=== PATIENT | female | born 1960 | race Caucasian/White ===

== ENCOUNTER 2016-05-04 15:02 | Inpatient (IN) | payer MEDICARE, OTHER ==
[2016-05-04] MEDS ORDERED: SODIUM CHLORIDE 0.9% 1,000 ML IV STA (15:09)
--- NOTE | 2016-05-04 15:25 | ED ---
Female Urogenital HPI - General Stated complaint: ABNORMAL LABS, VAGINAL BLEEDIING Time Seen by Provider: 05/04/16 15:08 Source: patient, EMS Mode of arrival: EMS Limitations: no limitations - History of Present Illness Initial comments: 55-year-old female presents emergency Department from [facility] for anemia. Patient hemoglobin was drawn today showed hemoglobin of 6. Patient had lab work approximately 2 weeks ago showed hemoglobin 10.3. Patient had vaginal bleeding for the last 9 days. Patient states she cannot quantify how much bleeding she states her is clots. Patient did admit to having some sort of uterine/ovarian cancer treated with radiation. Patient states she's not had any surgeries. Patient states that she otherwise feels fine. Denies any fatigue, shortness breath, chest pain, headache, dizziness, fever or chills. - Related Data Home Medications Medication Instructions Recorded Confirmed Acetaminophen Tab [Tylenol Tab] 650 mg PO Q4H PRN 05/04/16 05/04/16 Artificial Tears-Hypromellose 1 drops BOTH EYES QID 05/04/16 05/04/16 [Artificial Tear Drops] Aspirin EC [Ecotrin] 325 mg PO DAILY@1700 05/04/16 05/04/16 Bisacodyl [Dulcolax] 10 mg RECTAL DAILY PRN 05/04/16 05/04/16 Brimonidine Tartrate/Timolol 1 drop LEFT EYE BID 05/04/16 05/04/16 [Combigan 0.2%-0.5% Eye Drops] Cholecalciferol [Vitamin D3] 1,000 unit PO DAILY@1700 05/04/16 05/04/16 DULoxetine HCL [Cymbalta] 60 mg PO DAILY 05/04/16 05/04/16 Famotidine [Pepcid] 20 mg PO QAM 05/04/16 05/04/16 Gemfibrozil [Lopid] 600 mg PO AC-BID 05/04/16 05/04/16 HYDROcodone/APAP 5-325MG [[place] 1 tab PO HS 05/04/16 05/04/16 5-325] Lacri-Lube Oint 1 applic RIGHT EYE DAILY 05/04/16 05/04/16 Levothyroxine Sodium [Synthroid] 50 mcg PO HS 05/04/16 05/04/16 Loperamide HCl [Imodium A-D] 4 mg PO BID PRN 05/04/16 05/04/16 Magnesium Hydroxide [Milk of 2,400 mg PO DAILY PRN 05/04/16 05/04/16 Magnesia] Multivitamins, Thera [Multivitamin] 1 tab PO DAILY@169905/04/16 05/04/16 Na Phos,M-B/Na Phos,Di-Ba [Fleet 133 ml RECTAL DAILY PRN 05/04/16 05/04/16 Adult] Nystatin 100,000 Unit/gm Powd 1 applic TOPICAL DAILY PRN 05/04/16 05/04/16 [Mycostatin Powder] Potassium Chloride [K-Tab ER] 10 meq PO DAILY@169905/04/16 05/04/16 Ranitidine HCl [Zantac] 150 mg PO QAM 05/04/16 05/04/16 Topiramate [Topamax] 25 mg PO DAILY 05/04/16 05/04/16 Topiramate [Topamax] 100 mg PO DAILY@169905/04/16 05/04/16 Allergies Allergy/AdvReac Type Severity Reaction Status Date / Time kiwi Allergy Unknown Verified 05/04/16 15:07 pineapple Allergy Unknown Verified 05/04/16 15:07 Review of Systems ROS Statement: Those systems with pertinent positive or pertinent negative responses have been documented in the HPI. ROS Other: All systems not noted in ROS Statement are negative. Past Medical History Past Medical History: Cancer, GERD/Reflux, Hyperlipidemia, Hypertension, Thyroid Disorder Additional Past Medical History / Comment(s): malignant neoplasm of uterus, atherosclerotic heart disease, angina, ovarian Cancer History of Any Multi-Drug Resistant Organisms: None Reported Past Surgical History: Unable to Obtain Past Psychological History: Anxiety, Bipolar, Depression Smoking Status: Never smoker Past Alcohol Use History: None Reported Past Drug Use History: None Reported General Exam Limitations: no limitations General appearance: alert, in no apparent distress Head exam: Present: atraumatic, normocephalic, normal inspection Eye exam: Present: normal appearance, PERRL, EOMI. Absent: scleral icterus, conjunctival injection, periorbital swelling Respiratory exam: Present: normal lung sounds bilaterally. Absent: respiratory distress, wheezes, rales, rhonchi, stridor Cardiovascular Exam: Present: regular rate, normal rhythm, normal heart sounds. Absent: systolic murmur, diastolic murmur, rubs, gallop, clicks GI/Abdominal exam: Present: soft, normal bowel sounds. Absent: distended, tenderness, guarding, rebound, rigid Skin exam: Present: warm, dry, intact. Absent: normal color (pale), rash Course Vital Signs 05/04/16 05/04/16 05/04/16 15:04 16:34 17:42 Temperature 98.1 F 98.4 F Pulse Rate 49 L 68 68 Respiratory 18 18 20 Rate Blood Pressure 128/67 121/64 121/66 O2 Sat by Pulse 100 100 100 Oximetry - Reevaluation(s) Reevaluation #1: 05/04/16 16:54 Patient was scheduled for ultrasound here though she is refusing ultrasound as she states that she does not think she can go through with that. She is asking to be sedated. I did explain that we need to perform this rel any concerning signs or symptoms or increased mass in that she has a history of uterine/ ovarian cancer. Patient continues to refuse. Headaches been having need to at least and exam to make sure it's vaginal bleeding and not rectal. Patient also refusing this. She states she knows that it is vaginal bleeding as she is changing her brief approximately 3 times a day Medical Decision Making - Lab Data Result diagrams: 05/04/16 15:16 05/04/16 15:16 Lab Results 05/04/16 05/04/16 05/04/16 Range/Units 15:16 15:16 15:16 WBC 3.8 (3.8-10.6) k/uL RBC 2.07 L (3.80-5.40) m/uL Hgb 6.7 L* (11.4-16.0) gm/dL Hct 20.2 L (34.0-46.0) % MCV 97.5 (80.0-100.0) fL MCH 32.5 (25.0-35.0) pg MCHC 33.3 (31.0-37.0) g/dL RDW 18.3 H (11.5-15.5) % Plt Count 283 (150-450) k/uL Neutrophils % (Manual) 69.5 % Band Neutrophils % 2.0 % Lymphocytes % (Manual) 17.0 % Monocytes % (Manual) 6.5 % Eosinophils % (Manual) 3.5 % Metamyelocytes % 0.5 % Myelocytes % 1.0 % Neutrophils # (Manual) 2.7 (1.3-7.7) k/uL Lymphocytes # (Manual) 0.6 L (1.0-4.8) k/uL Monocytes # (Manual) 0.2 (0-1.0) k/uL Eosinophils # (Manual) 0.1 (0-0.7) k/uL Nucleated RBCs 6 H (0-0) /100 WBC Manual Slide Review Performed Polychromasia Present Hypochromasia Slight Poikilocytosis Moderate Anisocytosis Slight Macrocytosis Slight PT 10.9 (9.0-12.0) sec INR 1.1 (<1.1) APTT 25.1 (22.0-30.0) sec Sodium 138 (137-145) mmol/L Potassium 3.6 (3.5-5.1) mmol/L Chloride 103 (98-107) mmol/L Carbon Dioxide 21 L (22-30) mmol/L Anion Gap 14 mmol/L BUN 14 (7-17) mg/dL Creatinine 1.27 H (0.52-1.04) mg/dL Est GFR (MDRD) Af Amer 53 (>60 ml/min/1.73 sqM) Est GFR (MDRD) Non-Af 43 (>60 ml/min/1.73 sqM) Glucose 129 H (74-99) mg/dL Calcium 9.1 (8.4-10.2) mg/dL Total Bilirubin 0.6 (0.2-1.3) mg/dL AST 38 H (14-36) U/L ALT 32 (9-52) U/L Alkaline Phosphatase 139 H (38-126) U/L Total Protein 6.3 (6.3-8.2) g/dL Albumin 3.5 (3.5-5.0) g/dL Amylase <30 L (30-110) U/L Lipase 44 (23-300) U/L Blood Type Blood Type Confirm Blood Type Recheck Antibody Screen Crossmatch Spec Expiration Date 05/04/16 05/04/16 Range/Units 15:16 16:36 WBC (3.8-10.6) k/uL RBC (3.80-5.40) m/uL Hgb (11.4-16.0) gm/dL Hct (34.0-46.0) % MCV (80.0-100.0) fL MCH (25.0-35.0) pg MCHC (31.0-37.0) g/dL RDW (11.5-15.5) % Plt Count (150-450) k/uL Neutrophils % (Manual) % Band Neutrophils % % Lymphocytes % (Manual) % Monocytes % (Manual) % Eosinophils % (Manual) % Metamyelocytes % % Myelocytes % % Neutrophils # (Manual) (1.3-7.7) k/uL Lymphocytes # (Manual) (1.0-4.8) k/uL Monocytes # (Manual) (0-1.0) k/uL Eosinophils # (Manual) (0-0.7) k/uL Nucleated RBCs (0-0) /100 WBC Manual Slide Review Polychromasia Hypochromasia Poikilocytosis Anisocytosis Macrocytosis PT (9.0-12.0) sec INR (<1.1) APTT (22.0-30.0) sec Sodium (137-145) mmol/L Potassium (3.5-5.1) mmol/L Chloride (98-107) mmol/L Carbon Dioxide (22-30) mmol/L Anion Gap mmol/L BUN (7-17) mg/dL Creatinine (0.52-1.04) mg/dL Est GFR (MDRD) Af Amer (>60 ml/min/1.73 sqM) Est GFR (MDRD) Non-Af (>60 ml/min/1.73 sqM) Glucose (74-99) mg/dL Calcium (8.4-10.2) mg/dL Total Bilirubin (0.2-1.3) mg/dL AST (14-36) U/L ALT (9-52) U/L Alkaline Phosphatase (38-126) U/L Total Protein (6.3-8.2) g/dL Albumin (3.5-5.0) g/dL Amylase (30-110) U/L Lipase (23-300) U/L Blood Type A Positive Blood Type Confirm A Positive Blood Type Recheck CABO Indicated Antibody Screen NEGATIVE Crossmatch See Detail Spec Expiration Date 05/07/2016 - 2316 Disposition Clinical Impression: Anemia, Vaginal bleeding Disposition: ADMITTED IP TO THIS HOSP Condition: Stable Referrals: Ludwig García DO [Primary Care Provider] - 1-2 days
[2016-05-04 15:37] LABS: Anisocytosis Slight; CH 33.2; CHCM 34.5; HCT 20.2 % (34.0-46.0); HDW 4.34; Hypochromasia Slight; MCH 32.5 pg (25.0-35.0); MCHC 33.3 g/dL (31.0-37.0); MCV 97.5 fL (80.0-100.0); Macrocytosis Slight; Mean Platelet Volume 7.6; Poikilocytosis Moderate; RBC 2.07 m/uL (3.80-5.40); RDW 18.3 % (11.5-15.5); WBC (Perox) 4.39
[2016-05-04 15:41] LABS: INR 1.1 (<1.1); Partial Thromboplastin Time 25.1 sec (22.0-30.0); Prothrombin Time 10.9 sec (9.0-12.0)
[2016-05-04 15:43] LABS: ALT 32 U/L (9-52); AST 38 U/L (14-36); Alkaline Phosphatase 139 U/L (38-126); Amylase <30 U/L (30-110); Anion Gap 14 mmol/L; Blood Urea Nitrogen 14 mg/dL (7-17); Calcium 9.1 mg/dL (8.4-10.2); Carbon Dioxide 21 mmol/L (22-30); Chloride 103 mmol/L (98-107); Glucose 129 mg/dL (74-99); HGB 6.7 gm/dL (11.4-16.0); Non-African American GFR(MDRD) 43 (>60 ml/min/1.73 sqM); Potassium 3.6 mmol/L (3.5-5.1); Sodium 138 mmol/L (137-145); Total Bilirubin 0.6 mg/dL (0.2-1.3); Total Protein 6.3 g/dL (6.3-8.2)
[2016-05-04 16:10] LABS: Add Differential Manual Differential
[2016-05-04 16:15] LABS: Metamyelocytes % 0.5 %; Nucleated Red Blood Cells 6 /100 WBC (0-0); Total Cells Counted 200; WBC 3.8 k/uL (3.8-10.6)
[2016-05-04 16:16] LABS: Manual Review Performed; Polychromasia Present
[2016-05-04] MEDS ORDERED: ACETAMINOPHEN TAB 325 MG TAB PO PRN (18:03)
[2016-05-04] MEDS ORDERED: NALOXONE 0.4 MG/ML 1 ML VIAL IV PRN (18:03)
[2016-05-04] MEDS ORDERED: ONDANSETRON 4 MG/2 ML VIAL IVP PRN (18:03)
--- NOTE | 2016-05-04 19:42 | US ---
EXAMINATION TYPE: US pelvis complete transvag DATE OF EXAM: 05/04/2016 7:36 PM COMPARISON: NONE CLINICAL HISTORY: Pain. Heavy post menopausal bleeding, passing clots. Patient states a history of ov raymundo CA. Denies any surgical history TECHNIQUE: Transvaginal (TV) and Transabdominal (TA) Date of LMP: Patient could not give me a time frame EXAM MEASUREMENTS: Uterus: 6.5 x 3.6 x 5.2 cm cm Endometrial Stripe: 0.4 cm Right Ovary: Not visualized with certainty Left Ovary: Not visualized on this exam TECHNOLOGIST IMPRESSION: 1. Uterus: Difficult/limited visualization (patient unable to lift hips for better visualization), v isualized portions wnl 2. Endometrium: wnl 3. Right Ovary: Not visualized with certainty. Within the right adnexa there is a large complex area measuring 8.5 x 4.1 x 9.3 cm. There is blood flow within this area 4. Left Ovary: Not visualized on this exam 5. Bilateral Adnexa: See above, left adnexa wnl 6. Posterior cul-de-sac: wnl IMPRESSION: There is a bilobed large cystic mass in the pelvis on the right side that could relate t o the right ovary. This measures overall 5 9 x 4.5 cm. Follow-up is recommended. The possibility of a cystic ovarian tumor cannot be excluded.
--- NOTE | 2016-05-04 22:44 | P.OBCN ---
History of Present Illness Consult date: 05/04/16 Requesting physician: Velma Whitt Reason for consult: pelvic mass, other (post menopausal bleeding with history of uterine and ovarian cancer) Chief complaint: Patient has what is suspected to be vaginal bleeding and history of uterine History of present illness: Ninfa is a very pleasant 55-year-old female who noted last Monday she began having what she believed to be vaginal bleeding. She began passing large clots and has continued to bleed over the past 7 days. She got to the point where she was bleeding so badly she became anemic and she is admitted for same. I was consult it for the vaginal bleeding. She believes she is a patient Dr. Serrano and the Dr. Serrano diagnosed her with both uterine and ovarian cancer several years ago and she saw physicians at [facility] in [place] for radiation for same. At this time it did not have records but we'll make every effort to obtain those records in the next 24 hours. She reports that she is still bleeding some but the nurses have reported that is significantly less than it was earlier in the day. She is a 1 para 1 who also underwent a tubal ligation. She is unsure how her tubal was done. She also is physically morbidly obese with large pannus. She reports that when she was first diagnosed with cancer she believes she weighed about 400 pounds and that precluded her from initially having CT scans and follow-up care and may be why if she had cancer they opted for radiation therapy rather than traditional surgical approaches. On receiving consultation I did order a straight cath UA as would be very unusual for her to have vaginal bleeding. She did have gross hematuria. When I was in the room doing my physical exam, I did note one clot at the outer part of the vagina. I did do a speculum exam No Masses and There Was No Blood in the Vagina. No Active Bleeding from the Vagina at This Time. Pelvic Exam Done Bimanually Also Revealed No Masses Palpable in the Vagina However This Exam Is Somewhat Limited Due To Her Size. Review of the Ultrasound Did Show a suspected 8 cm ovarian mass on the right side. Her uterus however was small and the uterine lining was measured to 4 mm which would be normal. Certainly the ovarian mass dates to be evaluated with a CA-125 and likely repeat referral to [facility] oncology. At this time it is possible as she has lost a significant amount of weight that she may be a better candidate for surgery. However, she needs to be evaluated by urology for gross hematuria. Difficult to say if this could be some type of cancer of this extended to the bladder due to her history or radiation damage it is now apparent that she had radiation with the last 3-5 years. She is a decent historian but does not remember clearly when the care for her cancer started or when it was diagnosed. Assessment gross hematuria Plan CA-125 for ovarian mass and urologic consult. Should be noted at this time her bleeding seems to be less than what was described earlier Past Medical History Past Medical History: Cancer, GERD/Reflux, Hyperlipidemia, Hypertension, Thyroid Disorder Additional Past Medical History / Comment(s): malignant neoplasm of uterus, atherosclerotic heart disease, angina, ovarian Cancer stated no sx but did have radiation, HIATAL HERNIA,UTI, STRESS TEST 204 WNL, RT EYE GLAUCOMA History of Any Multi-Drug Resistant Organisms: None Reported Past Surgical History: Tubal Ligation Additional Past Surgical History / Comment(s): ? tonsils-pt not sure Past Anesthesia/Blood Transfusion Reactions: No Reported Reaction Additional Past Anesthesia/Blood Transfusion Reaction / Comm: never had any blood trasnfusion before Past Psychological History: Anxiety, Bipolar, Depression Additional Psychological History / Comment(s): pt currently resides at [facility], uses a walker to get out of bed and to her w/c. Smoking Status: Never smoker Past Alcohol Use History: None Reported Past Drug Use History: None Reported - Past Family History Father Family Medical History: Unable to Obtain Mother Family Medical History: Unable to Obtain Medications and Allergies Home Medications Medication Instructions Recorded Confirmed Type Acetaminophen Tab [Tylenol Tab] 650 mg PO Q4H PRN 05/04/16 05/04/16 History Artificial Tears-Hypromellose 1 drops BOTH EYES QID 05/04/16 05/04/16 History [Artificial Tear Drops] Aspirin EC [Ecotrin] 325 mg PO DAILY@1700 05/04/16 05/04/16 History Bisacodyl [Dulcolax] 10 mg RECTAL DAILY PRN 05/04/16 05/04/16 History Brimonidine Tartrate/Timolol 1 drop LEFT EYE BID 05/04/16 05/04/16 History [Combigan 0.2%-0.5% Eye Drops] Cholecalciferol [Vitamin D3] 1,000 unit PO DAILY@1700 05/04/16 05/04/16 History DULoxetine HCL [Cymbalta] 60 mg PO DAILY 05/04/16 05/04/16 History Famotidine [Pepcid] 20 mg PO QAM 05/04/16 05/04/16 History Gemfibrozil [Lopid] 600 mg PO AC-BID 05/04/16 05/04/16 History HYDROcodone/APAP 5-325MG [[place] 1 tab PO HS 05/04/16 05/04/16 History 5-325] Lacri-Lube Oint 1 applic RIGHT EYE DAILY 05/04/16 05/04/16 History Levothyroxine Sodium [Synthroid] 50 mcg PO HS 05/04/16 05/04/16 History Loperamide HCl [Imodium A-D] 4 mg PO BID PRN 05/04/16 05/04/16 History Magnesium Hydroxide [Milk of 2,400 mg PO DAILY PRN 05/04/16 05/04/16 History Magnesia] Multivitamins, Thera [Multivitamin] 1 tab PO DAILY@0 05/04/16 05/04/16 History Na Phos,M-B/Na Phos,Di-Ba [Fleet 133 ml RECTAL DAILY PRN 05/04/16 05/04/16 History Adult] Nystatin 100,000 Unit/gm Powd 1 applic TOPICAL DAILY PRN 05/04/16 05/04/16 History [Mycostatin Powder] Potassium Chloride [K-Tab ER] 10 meq PO DAILY@0 05/04/16 05/04/16 History Ranitidine HCl [Zantac] 150 mg PO QAM 05/04/16 05/04/16 History Topiramate [Topamax] 25 mg PO DAILY 05/04/16 05/04/16 History Topiramate [Topamax] 100 mg PO DAILY@1700 05/04/16 05/04/16 History Allergies Allergy/AdvReac Type Severity Reaction Status Date / Time kiwi Allergy Unknown Verified 05/04/16 15:07 pineapple Allergy Unknown Verified 05/04/16 15:07 Exam Osteopathic Statement: *. No significant issues noted on an osteopathic structural exam other than those noted in the History and Physical/Consult. - Vital Signs Vital signs: Vital Signs Temp Pulse Resp BP Pulse Ox 05/04/16 20:35 98.1 F 68 18 111/69 100 05/04/16 20:31 97.8 F 90 20 139/63 100 05/04/16 20:15 97.8 F 68 18 137/71 100 05/04/16 19:26 97.1 F L 72 18 130/67 100 05/04/16 19:03 96.9 F L 76 20 149/65 100 05/04/16 18:33 97.6 F 69 20 142/63 100 05/04/16 18:23 97.6 F 75 20 143/87 99 05/04/16 18:15 97.7 F 67 20 126/63 100 Intake and Output 05/04/16 05/04/16 05/04/16 06:59 14:59 22:59 Intake Total 310 Balance 310 Intake: Blood Product 310 Rc As-1 Unit 0 [id number] Rc As-1 Unit 310 [id number] Results Result Diagrams: 05/04/16 15:16 05/04/16 15:16
[2016-05-04 23:35] VITALS: BMI 46.0
[2016-05-05 01:14] LABS: Appearance,Urine Turbid (Clear); Bacteria,Urine Few /hpf; Bilirubin,Urine Negative (Negative); Glucose,Urine (UA) Negative (Negative); Ketones,Urine Negative (Negative); Leukocyte Esterase,Urine Small (Negative); Nitrite,Urine Negative (Negative); Particle Count 22667; Protein,Urine 2+ (Negative); RBC,Urine >182 /hpf (0-5); Specific Gravity,Urine 1.017 (1.001-1.035); UA Billing (MACRO vs. MICRO) MICRO; Urobilinogen,Urine <2.0 mg/dL (<2.0); WBC,Urine 44 /hpf (0-5)
[2016-05-05 01:24] LABS: Anisocytosis Slight; CHCM 33.3; HDW 3.81; Hypochromasia Slight; MCH 31.1 pg (25.0-35.0); MCHC 32.1 g/dL (31.0-37.0); MCV 96.9 fL (80.0-100.0); Macrocytosis Slight; Mean Platelet Volume 7.4; Poikilocytosis Slight; RBC 2.58 m/uL (3.80-5.40); RDW 17.8 % (11.5-15.5)
[2016-05-05 06:35] LABS: Anisocytosis Slight; Basophils % (A) 1 %; CH 31.6; CHCM 33.1; Eosinophils # (A) 0.1 k/uL (0-0.7); Eosinophils % (A) 2 %; HCT 24.6 % (34.0-46.0); HDW 3.89; HGB 8.1 gm/dL (11.4-16.0); Hypochromasia Slight; Luc % (Auto) 3; Lymphocytes # (A) 0.8 k/uL (1.0-4.8); Lymphocytes % (A) 24 %; MCH 31.8 pg (25.0-35.0); MCHC 32.9 g/dL (31.0-37.0); MCV 96.8 fL (80.0-100.0); Macrocytosis Slight; Mean Platelet Volume 6.6; Monocytes # (A) 0.2 k/uL (0-1.0); Monocytes % (A) 6 %; Neutrophils # (A) 2.2 k/uL (1.3-7.7); Neutrophils % (A) 64 %; Poikilocytosis Slight; RBC 2.55 m/uL (3.80-5.40); RDW 18.5 % (11.5-15.5); WBC 3.4 k/uL (3.8-10.6)
[2016-05-05 08:15] LABS: Manual Review Performed; Polychromasia Present
[2016-05-05] MEDS ORDERED: FAMOTIDINE 20 MG TAB PO SCH (09:00)
[2016-05-05] MEDS: GEMFIBROZIL 600 MG TAB PO SCH ×2 (09:27→16:52)
[2016-05-05] MEDS: DULoxetine HCL 60 MG CAPSULE.DR PO SCH (09:28)
[2016-05-05] MEDS: TOPIRAMATE 25 MG TAB PO SCH (09:28)
[2016-05-05] MEDS: FAMOTIDINE 20 MG TAB PO SCH (09:28)
[2016-05-05] MEDS ORDERED: MAGNESIUM HYDROXIDE 2,400 MG/10 ML CUP PO PRN (12:25)
[2016-05-05] MEDS ORDERED: ACETAMINOPHEN TAB 325 MG TAB PO PRN (12:25)
[2016-05-05] MEDS ORDERED: BISACODYL 10 MG SUPP RECTAL PRN (12:25)
[2016-05-05] MEDS ORDERED: NYSTATIN 100,000 UNIT/GM POWD 15 GM TOPICAL PRN (12:25)
[2016-05-05] MEDS: ARTIFICIAL TEARS-HYPROMELLOSE DROPS 15 ML BTL BOTH EYES SCH ×3 (14:44→20:20)
--- NOTE | 2016-05-05 15:46 | HP ---
DATE OF ADMISSION: Patient is a 55-year-old female, pleasant female who came in with possible vaginal. Patient had a urinary catheterization, which apparently showed hematuria, because of which Urology was consulted by TILER. TILER consulted patient apparently. In the past was diagnosed with uterine and ovarian cancer. Patient followed up at [facility] in [place] for radiation and patient at this point of time denied anymore bleed today. Patient denied any lightheadedness. Patient denied any fever or chills. Patient's hemoglobin was 6.7 and received 2 units of blood transfusion and patient is on IV fluids at 100 mL/h. Patient has mild renal dysfunction, most probably CKD stage II to III. Patient was evaluated by TILER and patient also has an incidental finding of ovarian cyst on the pelvic ultrasound. Please refer to Dr. López's note for further details. Patient endothelium apparently is normal thickness and CA125 was ordered, which is essentially within normal limits although that does not exclude endometrial cancer. REVIEW OF SYSTEMS: GENERAL: As described in HPI. CONSTITUTIONAL: No fever, no malaise, no fatigue. HEENT: No recent visual problems or hearing problems. Denied any sore throat. CARDIOVASCULAR: No chest pain, orthopnea, PND, no palpitations, no syncope. PULMONARY: No shortness of breath, no cough, no hemoptysis. GASTROINTESTINAL: No diarrhea, no nausea, no vomiting, no abdominal pain. Normoactive bowel sounds. NEUROLOGICAL: No headaches, no weakness, no numbness. HEMATOLOGICAL: Denies any bleeding or petechiae. GENITOURINARY: As described in HPI. Patient has been bleeding; vaginal versus genitourinary bleeding for 10 days. MUSCULOSKELETAL/RHEUMATOLOGICAL: Denies any joint pain, swelling, or any muscle pain. ENDOCRINE: Denies any polyuria or polydipsia. The rest of the 14 point review of systems is negative. PAST MEDICAL HISTORY: Significant for gastroesophageal reflux disease, uterine cancer, hyperlipidemia, hypertension, hypothyroidism, ovarian cancer in the past. Tubal ligation surgery in the past. Bipolar disorder, depression. Patient received radiation therapy in the past. SOCIAL HISTORY: Denies smoking, alcohol abuse or drug abuse. FAMILY HISTORY: Denied any family history of hypertension or diabetes mellitus. Home medications include acetaminophen, Artificial Tears, aspirin, bisacodyl, brimonidine, duloxetine, famotidine, gemfibrozil, lactulose, levothyroxine, loperamide, magnesium oxide, multivitamins, nystatin topical, Topamax, ranitidine, potassium chloride. ALLERGIES: Please refer to the chart. PHYSICAL EXAMINATION: VITAL SIGNS: Temperature 97.5, pulse of 75, respiratory rate of 16, blood pressure is 124/72, saturating at 100% on room air. GENERAL: Patient appears to be pale and alert and oriented x3. HEENT: Eye examination: Patient has conjunctival pallor. Pupils are round and equally reacting to light. No scleral icterus was appreciated. Normocephalic, atraumatic. No pharyngeal erythema. No thyromegaly. CARDIOVASCULAR: S1 and S2 present. No murmurs, rubs, or gallops. PULMONARY: Chest is clear to auscultation, no wheezing or crackles. ABDOMEN: Soft, nontender, nondistended, normoactive bowel sounds. No palpable organomegaly. MUSCULOSKELETAL: No joint swelling or deformity. EXTREMITIES: No cyanosis, clubbing, or pedal edema. NEUROLOGICAL: Gross neurological examination did not reveal any focal deficits. SKIN: No rashes. LABORATORY DATA: Hemoglobin as mentioned above. Patient has increased RDW consistent with acute bleed. Patient's MCV is within normal limits. Bicarbonate is 21, creatinine is 1.27. I do not have any of her previous creatinines available. UA is positive for large blood, small leukocyte esterase, RBC greater than 182, WBC 44, although patient denied any fever, chills, or suprapubic pain or dysuria. Patient does have hematuria. ASSESSMENT AND PLAN: 1. Vaginal bleed. There is probability of bleeding from the urinary system because of which Urology was consulted. The patient was evaluated by Dr. López. Please refer to his chart for further details. CA125 is essentially within normal limits. Patient received 1 unit of transfusion. After evaluation by Urology patient probably can be discharged tomorrow depending on their recommendations and depending continuation of bleed. 2. Symptomatic bacteria, which does not warrant any antibiotics at this point of time. 3. Possibility of hematuria. Evaluation by Urology as mentioned above. 4. Acute renal failure. Previous creatinine is 0.86. Patient is probably due to intravascular volume depletion from genitourinary bleed. Patient will continue with IV fluids and will transfuse her one more unit if needed depending if she has one more bleeding. Watch for further bleeding. 5. History of endometrial cancer in remission. 6. Hyperlipidemia. 7. Hypertension. 8. Hypothyroidism. For above-mentioned chronic medical problems, I will go ahead and continue her home medications. Patient's primary care physician is Dr. Ludwig García.
[2016-05-05] MEDS: TOPIRAMATE 100 MG TAB PO SCH (16:52)
[2016-05-05] MEDS: POTASSIUM CHLORIDE ER 10 MEQ TAB.ER.PRT PO SCH (16:52)
[2016-05-05] MEDS: HYDROcodone/APAP 5-325MG 1 EACH TAB PO SCH ×2 (20:19)
[2016-05-05] MEDS: LEVOTHYROXINE 50 MCG TAB PO SCH (20:20)
[2016-05-05] MEDS ORDERED: BRIMONIDINE TARTRATE LEFT EYE SCH (21:00)
[2016-05-05] MEDS ORDERED: TIMOLOL LEFT EYE SCH (21:00)
--- NOTE | 2016-05-05 21:06 | P.GSCN ---
History of Present Illness Consult date: 05/05/16 Reason for Consult: Hematuria Requesting physician: Kash López History of present illness: The patient is a 55-year-old white female who received radiation therapy for ovarian cancer several years ago. She now presents with a one-week history of vaginal bleeding. She is a vague historian, but states that she has experienced vaginal bleeding with clots. She also reports gross hematuria. She denies dysuria. She denies urinary incontinence. She denies any prior history of UTIs or urolithiasis. Review of Systems - Genitourinary Genitourinary: Reports as per HPI, Denies dysuria Past Medical History Past Medical History: Cancer, GERD/Reflux, Hyperlipidemia, Hypertension, Thyroid Disorder Additional Past Medical History / Comment(s): malignant neoplasm of uterus, atherosclerotic heart disease, angina, ovarian Cancer stated no sx but did have radiation, HIATAL HERNIA,UTI, STRESS TEST 204 WNL, RT EYE GLAUCOMA History of Any Multi-Drug Resistant Organisms: None Reported Past Surgical History: Tubal Ligation Additional Past Surgical History / Comment(s): ? tonsils-pt not sure Past Anesthesia/Blood Transfusion Reactions: No Reported Reaction Additional Past Anesthesia/Blood Transfusion Reaction / Comm: never had any blood trasnfusion before Past Psychological History: Anxiety, Bipolar, Depression Additional Psychological History / Comment(s): pt currently resides at [facility], uses a walker to get out of bed and to her w/c. Smoking Status: Never smoker Past Alcohol Use History: None Reported Past Drug Use History: None Reported - Past Family History Father Family Medical History: Unable to Obtain Mother Family Medical History: Unable to Obtain Medications and Allergies Home Medications Medication Instructions Recorded Confirmed Type Acetaminophen Tab [Tylenol Tab] 650 mg PO Q4H PRN 05/04/16 05/04/16 History Artificial Tears-Hypromellose 1 drops BOTH EYES QID 05/04/16 05/04/16 History [Artificial Tear Drops] Aspirin EC [Ecotrin] 325 mg PO DAILY@1700 05/04/16 05/04/16 History Bisacodyl [Dulcolax] 10 mg RECTAL DAILY PRN 05/04/16 05/04/16 History Brimonidine Tartrate/Timolol 1 drop LEFT EYE BID 05/04/16 05/04/16 History [Combigan 0.2%-0.5% Eye Drops] Cholecalciferol [Vitamin D3] 1,000 unit PO DAILY@1700 05/04/16 05/04/16 History DULoxetine HCL [Cymbalta] 60 mg PO DAILY 05/04/16 05/04/16 History Famotidine [Pepcid] 20 mg PO QAM 05/04/16 05/04/16 History Gemfibrozil [Lopid] 600 mg PO AC-BID 05/04/16 05/04/16 History HYDROcodone/APAP 5-325MG [Imbler 1 tab PO HS 05/04/16 05/04/16 History 5-325] Lacri-Lube Oint 1 applic RIGHT EYE DAILY 05/04/16 05/04/16 History Levothyroxine Sodium [Synthroid] 50 mcg PO HS 05/04/16 05/04/16 History Loperamide HCl [Imodium A-D] 4 mg PO BID PRN 05/04/16 05/04/16 History Magnesium Hydroxide [Milk of 2,400 mg PO DAILY PRN 05/04/16 05/04/16 History Magnesia] Multivitamins, Thera [Multivitamin] 1 tab PO DAILY@1700 05/04/16 05/04/16 History Na Phos,M-B/Na Phos,Di-Ba [Fleet 133 ml RECTAL DAILY PRN 05/04/16 05/04/16 History Adult] Nystatin 100,000 Unit/gm Powd 1 applic TOPICAL DAILY PRN 05/04/16 05/04/16 History [Mycostatin Powder] Potassium Chloride [K-Tab ER] 10 meq PO DAILY@1700 05/04/16 05/04/16 History Ranitidine HCl [Zantac] 150 mg PO QAM 05/04/16 05/04/16 History Topiramate [Topamax] 25 mg PO DAILY 05/04/16 05/04/16 History Topiramate [Topamax] 100 mg PO DAILY@1700 05/04/16 05/04/16 History Allergies Allergy/AdvReac Type Severity Reaction Status Date / Time kiwi Allergy Unknown Verified 05/04/16 15:07 pineapple Allergy Unknown Verified 05/04/16 15:07 Surgical - Exam Vital Signs Temp Pulse Resp BP Pulse Ox 98.1 F 49 L 18 128/67 100 05/04/16 15:04 05/04/16 15:04 05/04/16 15:04 05/04/16 15:04 05/04/16 15:04 - General well developed, well nourished, no distress, obese - Respiratory normal respiratory effort - Abdomen Abdomen: soft, non tender, no guarding, no rigid, no rebound Results - Labs 05/05/16 06:02 05/04/16 15:16 Abnormal Lab Results - Last 24 Hours (Table) 05/04/16 05/05/16 05/05/16 Range/Units 22:25 01:14 06:02 WBC 3.4 L (3.8-10.6) k/uL RBC 2.58 L 2.55 L (3.80-5.40) m/uL Hgb 8.0 L 8.1 L (11.4-16.0) gm/dL Hct 25.0 L 24.6 L (34.0-46.0) % RDW 17.8 H 18.5 H (11.5-15.5) % Lymphocytes # 0.8 L (1.0-4.8) k/uL Urine Appearance Turbid H (Clear) Urine Protein 2+ H (Negative) Urine Blood Large H (Negative) Ur Leukocyte Esterase Small H (Negative) Urine RBC >182 H (0-5) /hpf Urine WBC 44 H (0-5) /hpf Urine Bacteria Few H (None) /hpf Assessment and Plan (1) Gross hematuria Status: Acute Plan: The patient is a 55-year-old woman admitted with anemia. She reports a 7 day history of vaginal bleeding and gross hematuria. She has received 2 units of packed RBCs. Dr. López straight catheterized her, and the urine drained was bloody. This suggests a urinary source of the bleeding. I have suggested she undergo cystoscopy under anesthesia for further evaluation. I am hopeful that this can be performed tomorrow. I have ordered a renal ultrasound to be done in the morning. If cystoscopy reveals an intravesical source of bleeding, this will be addressed. The differential diagnosis includes radiation cystitis, urothelial carcinoma, or direct extension of a gynecologic malignancy into the bladder. Conversely, if bloody urine efflux is noted from either ureter, this would suggest an upper tract source of bleeding and in that situation retrograde pyelograms and possible ureteroscopy would be warranted. Potential risks include anesthesia, bleeding, infection, bladder injury, and ureteral injury. Time with Patient: Greater than 30
[2016-05-06 07:20] LABS: Calcium 8.5 mg/dL (8.4-10.2); Potassium 3.5 mmol/L (3.5-5.1)
[2016-05-06 08:10] LABS: Anisocytosis Slight; CH 31.8; CHCM 32.6; HCT 21.5 % (34.0-46.0); HDW 4.02; Hypochromasia Slight; MCH 31.8 pg (25.0-35.0); MCHC 32.1 g/dL (31.0-37.0); Macrocytosis Slight; Mean Platelet Volume 7.1; Poikilocytosis Moderate; RBC 2.18 m/uL (3.80-5.40); WBC 2.2 k/uL (3.8-10.6)
[2016-05-06 08:22] LABS: HGB 6.9 gm/dL (11.4-16.0)
--- NOTE | 2016-05-06 08:41 | US ---
EXAMINATION TYPE: US kidneys/renal and bladder DATE OF EXAM: 05/06/2016 12:04 AM COMPARISON: NONE CLINICAL HISTORY: Hematuria. No pain, gross hematuria EXAM MEASUREMENTS: Right Kidney: 9.6 x 4.7 x 4.1 cm Left Kidney: 9.2 x 4.3 x 4.2 cm FINDINGS: Right Kidney: medial anechoic lesion- 1.3 x 1.5 x 1.1 cm Left Kidney: wnl Bladder: distended. Posterior lesion, nonvascular= 2.4 x 2.5 x 1.2 cm Bilateral Jets not seen Incidental finding: Right adnexal mass, seen on Pelvic US 05/04/2016 There is no evidence for hydronephrosis at this point in time. No nephrolithiasis is seen. The urin radha bladder is anechoic. Bilateral ureteral jets are seen. IMPRESSION: 1. There is an apparent mass within the posterior margin of the bladder measuring 2.5 cm correlate fo r neoplasm. 2. There is a large right adnexal mass which is been previously described by recent ultrasound likely ovarian. 3. Probable simple cyst involving the peripelvic region of the right kidney.
[2016-05-06] MEDS ORDERED: [UNRECOGNIZED DRUG - OTHER] RIGHT EYE SCH (09:00)
[2016-05-06] MEDS: TOPIRAMATE 25 MG TAB PO SCH (09:12)
[2016-05-06] MEDS: DULoxetine HCL 60 MG CAPSULE.DR PO SCH (09:12)
[2016-05-06] MEDS: ARTIFICIAL TEARS-HYPROMELLOSE DROPS 15 ML BTL BOTH EYES SCH ×4 (09:12→21:11)
[2016-05-06] MEDS: FAMOTIDINE 20 MG TAB PO SCH (09:12)
[2016-05-06] MEDS: GEMFIBROZIL 600 MG TAB PO SCH ×2 (09:12→19:10)
[2016-05-06] MEDS ORDERED: IV FLUID CONTINUATION 1,000 ML IV ONE (15:14)
[2016-05-06] MEDS ORDERED: MIDAZOLAM 2 MG/2 ML VIAL ONE (15:39)
[2016-05-06] MEDS ORDERED: LIDOCAINE 1% INJ 10MG/ML (20 ML MDV) ONE (15:39)
[2016-05-06] MEDS ORDERED: ROCURONIUM BROMIDE 10 MG/ML 10 ML VIAL IV ONE (15:39)
[2016-05-06] MEDS ORDERED: SUCCINYLCHOLINE CHLORIDE 100 MG/5 ML SYR IV ONE (15:39)
[2016-05-06] MEDS ORDERED: NEOSTIGMINE 1 MG/ML 10 ML VIAL ONE (15:39)
[2016-05-06] MEDS ORDERED: GLYCOPYRROLATE 0.2 MG/ML 2 ML VIAL ONE (15:39)
[2016-05-06] MEDS ORDERED: fentaNYL (PF) 50 MCG/ML 2 ML AMP ONE (15:39)
[2016-05-06] MEDS ORDERED: PROPOFOL 10 MG/ML 20 ML VIAL IV ONE (15:39)
--- NOTE | 2016-05-06 16:48 | P.OP ---
Date of Procedure: 05/06/16 Preoperative Diagnosis: Gross Hematuria, Bladder Mass Postoperative Diagnosis: Gross Hematuria, Radiation Cystitis Procedure(s) Performed: Cystoscopy, Evacuation of Clot, Fulgaration of Bleeder, Bladder Biopsies Anesthesia: KRYSTINA Surgeon: Darryl Dimas Estimated Blood Loss (ml): 30 IV fluids (ml): 500 Pathology: other (right and left lateral bladder wall biopsies) Condition: stable Disposition: PACU Indications for Procedure: The patient is a 55-year-old white female with a history of ovarian cancer. She was treated with radiation therapy several years ago. She was admitted with a one-week history of vaginal bleeding. She has been noted to be anemic, requiring transfusions. Catheterization of the bladder revealed evidence of gross hematuria. A renal ultrasound showed a 1.5 cm right renal cyst, but the kidneys otherwise appeared normal. However, the ultrasound showed a 2.5 cm bladder mass, as well as a right adnexal mass. She now comes for further evaluation via cystoscopy. Operative Findings: Radiation cystitis. Small capacity bladder. Active bleeder right lateral bladder wall. Description of Procedure: The patient was taken to the operating room and placed in the dorsolithotomy position, with her legs supported in Niels stirrups. The external genitalia was prepped and draped sterilely. The 30 lens was used to introduce the 22- Thai Stortz cystoscopic sheath through the urethra and into the bladder under direct vision. Visualization was poor, due to the presence of blood in the bladder. A large clot was identified. This was removed using the Ellik evacuator. Cystoscopy was repeated. The bladder capacity was noted to be small. An active pumping vessel was seen on the right lateral bladder wall. The Bugbee electrode was used to fulgurate this, obtaining excellent hemostasis. The bladder was then inspected. Both ureteral orifices were of normal anatomic location and configuration, and clear urine effluxed from both. There were no papillary tumors. Mucosal changes were seen in patchy areas, consistent with radiation cystitis. Biopsy forceps were used to obtain biopsies from 2 of the abnormal areas, the right and left lateral bladder elliott. The Bugbee electrode was used to fulgurate the biopsy sites, obtaining excellent hemostasis. The bladder was emptied and the cystoscope removed. The patient tolerated the procedure well was taken to the recovery room in stable condition.
[2016-05-06] MEDS: TOPIRAMATE 100 MG TAB PO SCH (18:36)
[2016-05-06] MEDS: POTASSIUM CHLORIDE ER 10 MEQ TAB.ER.PRT PO SCH (18:36)
[2016-05-06] MEDS: LACTATED RINGERS 1,000 ML IV SCH (18:36)
--- NOTE | 2016-05-06 19:25 | PN ---
55-year-old admitted with hematuria. The patient's hemoglobin is 6.9. We will go ahead and transfuse one more unit of blood and patient has mild acute renal failure of 1.21 creatinine. Patient will be switched to lactated Ringer's, IV fluid. Patient is going for cystoscopy. Ultrasound of the bladder did show some urinary bladder mass. REVIEW OF SYSTEMS: CARDIOVASCULAR: No chest pain, no orthopnea, no PND, no palpitations. PULMONARY: Denied any shortness of breath. No cough or hemoptysis. GASTROINTESTINAL: No diarrhea, nausea or vomiting. No abdominal pain. Normoactive bowel sounds. NEUROLOGIC: No headaches, no weakness, no numbness. Medications were reviewed. PHYSICAL EXAMINATION: Patient still looks pale. EYE examination, no significant change from yesterday. GENERAL: The patient is alert and oriented x3, not in any acute distress. Well developed, well nourished. HEENT: Pupils are round and equally reacting to light. EOMI. No scleral icterus. No conjunctival pallor. Normocephalic, atraumatic. No pharyngeal erythema. No thyromegaly. CARDIOVASCULAR: S1 and S2 present. No murmurs, rubs, or gallops. PULMONARY: Chest is clear to auscultation, no wheezing or crackles. ABDOMEN: Soft, nontender, nondistended, normoactive bowel sounds. No palpable organomegaly. MUSCULOSKELETAL: No joint swelling or deformity. EXTREMITIES: No cyanosis, clubbing, or pedal edema. NEUROLOGICAL: Gross neurological examination did not reveal any focal deficits. SKIN: No rashes. CBC, CMP are abnormal for low hemoglobin of 6.9 and we will transfuse one more unit of blood. ASSESSMENT AND PLAN: 1. Vaginal versus genitourinary bleed, urology is taking care of for cystoscopy. Patient has vesicular mass. Patient's CA125 is essentially within normal limits. Patient is going for cystoscopy today. 2. Asymptomatic bacteria for which the patient will not need any antibiotics. 3. History of ( ) in remission. 4. Hyperlipidemia. 5. Hypertension. 6. Hypothyroidism. 7. Acute blood loss anemia from hematuria and transfuse her 1 unit. 8. Acute renal failure secondary to intravascular volume depletion from hematuria.
[2016-05-06] MEDS: HYDROcodone/APAP 5-325MG 1 EACH TAB PO SCH (21:01)
[2016-05-06] MEDS: LEVOTHYROXINE 50 MCG TAB PO SCH (21:02)
[2016-05-07] MEDS: LACTATED RINGERS 1,000 ML IV SCH ×2 (04:42→17:50)
[2016-05-07] MEDS: TOPIRAMATE 25 MG TAB PO SCH (08:16)
[2016-05-07] MEDS: FAMOTIDINE 20 MG TAB PO SCH (08:16)
[2016-05-07] MEDS: DULoxetine HCL 60 MG CAPSULE.DR PO SCH (08:16)
[2016-05-07] MEDS: GEMFIBROZIL 600 MG TAB PO SCH ×2 (08:16→17:51)
[2016-05-07] MEDS: ARTIFICIAL TEARS-HYPROMELLOSE DROPS 15 ML BTL BOTH EYES SCH ×4 (08:18→20:09)
--- NOTE | 2016-05-07 09:24 | P.PN ---
Subjective The patient underwent cystoscopy and fulguration of an arterial bleeder yesterday by . She is voiding well without difficulty this morning. Her urine is clear. She should follow-up with in approximately 2 weeks. Objective - Vital Signs Vital signs: Vital Signs Temp 98.1 F 05/07/16 01:00 Pulse 75 05/07/16 07:00 Resp 14 05/07/16 07:00 BP 132/74 05/07/16 07:00 Pulse Ox 99 05/07/16 07:00 Intake & Output 05/06/16 05/07/16 05/07/16 18:59 06:59 18:59 Intake Total 600 2290 Output Total 30 Balance 570 2290 Intake: IV 600 Intake, IV Titration 1200 Amount Lactated Ringers 1,000 ml 1200 @ 100 mls/hr IV .Q10H [facility] Rx#:[id number] Oral 470 Blood Product 0 620 Rc As-1 Unit 310 [id number] Rc As-1 Unit 0 310 [id number] Output: Estimated Blood Loss 30 Other: Voiding Method Diaper Diaper Incontinent Incontinent # Voids 1 4 - Labs CBC & Chem 7: 05/06/16 06:37 05/06/16 06:37
[2016-05-07 11:18] LABS: Anisocytosis Slight; Basophils % (A) 1 %; CH 31.3; CHCM 32.3; Eosinophils # (A) 0.1 k/uL (0-0.7); Eosinophils % (A) 4 %; HCT 29.8 % (34.0-46.0); HDW 3.91; Hypochromasia Slight; Luc # (Auto) 0.12; Luc % (Auto) 3; Lymphocytes % (A) 27 %; MCH 31.9 pg (25.0-35.0); MCHC 32.4 g/dL (31.0-37.0); MCV 98.2 fL (80.0-100.0); Macrocytosis Slight; Mean Platelet Volume 7.7; Monocytes # (A) 0.3 k/uL (0-1.0); Monocytes % (A) 8 %; Neutrophils # (A) 2.1 k/uL (1.3-7.7); Neutrophils % (A) 57 %; Poikilocytosis Slight; RBC 3.04 m/uL (3.80-5.40); RDW 19.7 % (11.5-15.5); WBC 3.6 k/uL (3.8-10.6); WBC (Perox) 3.83
[2016-05-07 11:19] LABS: HGB 9.7 gm/dL (11.4-16.0)
[2016-05-07 11:44] LABS: Manual Review Performed; Polychromasia Present
[2016-05-07 15:09] VITALS: RESP 16
[2016-05-07] MEDS: TOPIRAMATE 100 MG TAB PO SCH (17:51)
[2016-05-07] MEDS: POTASSIUM CHLORIDE ER 10 MEQ TAB.ER.PRT PO SCH (17:51)
[2016-05-07 19:45] LABS: Anion Gap 11 mmol/L; Blood Urea Nitrogen 10 mg/dL (7-17); Calcium 9.4 mg/dL (8.4-10.2); Carbon Dioxide 23 mmol/L (22-30); Chloride 109 mmol/L (98-107); Glucose 114 mg/dL (74-99); Non-African American GFR(MDRD) 52 (>60 ml/min/1.73 sqM); Potassium 3.7 mmol/L (3.5-5.1); Sodium 143 mmol/L (137-145)
[2016-05-07] MEDS: HYDROcodone/APAP 5-325MG 1 EACH TAB PO SCH (20:09)
[2016-05-07] MEDS: LEVOTHYROXINE 50 MCG TAB PO SCH (20:10)
--- NOTE | 2016-05-07 20:42 | PN ---
Patient is admitted with hematuria. Patient has an arterial bleed, underwent fulguration of that arterial bleed. Patient is okay to be discharged from their perspective. The patient does not have any more blood in the urine, but patient will need to be discharged to subacute rehabilitation because of which patient will need to stay until morning. In the meantime, patient has acute renal failure. Will check her creatinine tomorrow again. REVIEW OF SYSTEMS: CARDIOVASCULAR: No chest pain, no orthopnea, no PND, no palpitations. PULMONARY: Denied any shortness of breath. No cough or hemoptysis. GASTROINTESTINAL: No diarrhea, nausea or vomiting. No abdominal pain. Normoactive bowel sounds. NEUROLOGIC: No headaches, no weakness, no numbness. Medications were reviewed. Patient does have bibasilar crackles, because of which I will obtain a chest x-ray. IV fluids will be discontinued at this point. Medications were reviewed. PHYSICAL EXAMINATION: Temperature 98.4, pulse of 64, respiratory rate 16, blood pressure 149/80, saturating at 99% on room air. GENERAL: The patient is alert and oriented x3, not in any acute distress. Well developed, well nourished. HEENT: Pupils are round and equally reacting to light. EOMI. No scleral icterus. No conjunctival pallor. Normocephalic, atraumatic. No pharyngeal erythema. No thyromegaly. CARDIOVASCULAR: S1 and S2 present. No murmurs, rubs, or gallops. PULMONARY: Bibasilar crackles heard, ( ). No wheezing was appreciated. ABDOMEN: Soft, nontender, nondistended, normoactive bowel sounds. No palpable organomegaly. MUSCULOSKELETAL: No joint swelling or deformity. EXTREMITIES: No cyanosis, clubbing, or pedal edema. NEUROLOGICAL: Gross neurological examination did not reveal any focal deficits. SKIN: No rashes. LABORATORY DATA: CBC showed stable hemoglobin of 9.7. ASSESSMENT AND PLAN: 1. Hematuria secondary to arterial bleeding. Patient underwent fulguration. 2. Asymptomatic ( ) for which patient will not need any antibiotics. 3. Acute renal failure. Patient received IV fluids. Will check kidney function today. 4. Bilateral crackles on exam. Can be secondary to atelectasis versus pulmonary edema. Will obtain a chest x-ray. Patient does not have any other signs of congestive heart failure at this point of time. 5. Hypothyroidism. 6. Acute blood loss anemia from hematuria.
[2016-05-08 07:34] LABS: Anisocytosis Moderate; CH 31.6; CHCM 33.1; HCT 28.8 % (34.0-46.0); HGB 9.4 gm/dL (11.4-16.0); Hypochromasia Slight; MCH 31.8 pg (25.0-35.0); MCHC 32.7 g/dL (31.0-37.0); Macrocytosis Slight; Poikilocytosis Slight; RBC 2.97 m/uL (3.80-5.40); RDW 20.1 % (11.5-15.5); WBC 2.8 k/uL (3.8-10.6)
[2016-05-08 08:05] LABS: Anion Gap 12 mmol/L; Blood Urea Nitrogen 10 mg/dL (7-17); Calcium 9.2 mg/dL (8.4-10.2); Carbon Dioxide 23 mmol/L (22-30); Chloride 108 mmol/L (98-107); Glucose 122 mg/dL (74-99); Non-African American GFR(MDRD) 51 (>60 ml/min/1.73 sqM); Potassium 3.5 mmol/L (3.5-5.1); Sodium 143 mmol/L (137-145)
[2016-05-08] MEDS: FAMOTIDINE 20 MG TAB PO SCH (08:07)
[2016-05-08] MEDS: TOPIRAMATE 25 MG TAB PO SCH (08:07)
[2016-05-08] MEDS: GEMFIBROZIL 600 MG TAB PO SCH ×2 (08:07→15:56)
[2016-05-08] MEDS: DULoxetine HCL 60 MG CAPSULE.DR PO SCH (08:07)
[2016-05-08] MEDS: ARTIFICIAL TEARS-HYPROMELLOSE DROPS 15 ML BTL BOTH EYES SCH ×4 (08:08→20:09)
--- NOTE | 2016-05-08 10:07 | P.PN ---
Subjective Principal diagnosis: The patient continues to void clear urine after her cystoscopy and fulguration of bleeding from radiation cystitis Objective - Vital Signs Vital signs: Vital Signs Temp 99 F 05/08/16 07:00 Pulse 68 05/08/16 08:00 Resp 16 05/08/16 08:00 BP 119/68 05/08/16 07:00 Pulse Ox 100 05/08/16 07:00 Intake & Output 05/07/16 05/08/16 05/08/16 18:59 06:59 18:59 Intake Total 300 Balance 300 Weight 123.5 kg Intake: Oral 300 Other: Voiding Method Diaper Diaper Diaper Incontinent Incontinent Incontinent # Voids 1 1 - Labs CBC & Chem 7: 05/08/16 07:24 05/08/16 07:24 Labs: Abnormal Lab Results - Last 24 Hours (Table) 05/07/16 05/07/16 05/08/16 Range/Units 10:11 18:30 07:24 WBC 3.6 L 2.8 L (3.8-10.6) k/uL RBC 3.04 L 2.97 L (3.80-5.40) m/uL Hgb 9.7 L D 9.4 L (11.4-16.0) gm/dL Hct 29.8 L 28.8 L (34.0-46.0) % RDW 19.7 H 20.1 H (11.5-15.5) % Chloride 109 H (98-107) mmol/L Creatinine 1.08 H (0.52-1.04) mg/dL Glucose 114 H (74-99) mg/dL 05/08/16 Range/Units 07:24 WBC (3.8-10.6) k/uL RBC (3.80-5.40) m/uL Hgb (11.4-16.0) gm/dL Hct (34.0-46.0) % RDW (11.5-15.5) % Chloride 108 H (98-107) mmol/L Creatinine 1.11 H (0.52-1.04) mg/dL Glucose 122 H (74-99) mg/dL
[2016-05-08] MEDS: POTASSIUM CHLORIDE ER 10 MEQ TAB.ER.PRT PO SCH (15:56)
[2016-05-08] MEDS: TOPIRAMATE 100 MG TAB PO SCH (15:57)
--- NOTE | 2016-05-08 18:38 | PN ---
Patient is admitted with hematuria. Patient has an arterial bleed, underwent fulguration of that arterial bleed. Patient is okay to be discharged from their perspective. The patient does not have any more blood in the urine, but patient will need to be discharged to subacute rehabilitation because of which patient will need to stay until morning. In the meantime, patient has acute renal failure. Will check her creatinine tomorrow again. REVIEW OF SYSTEMS: CARDIOVASCULAR: No chest pain, no orthopnea, no PND, no palpitations. PULMONARY: Denied any shortness of breath. No cough or hemoptysis. GASTROINTESTINAL: No diarrhea, nausea or vomiting. No abdominal pain. Normoactive bowel sounds. NEUROLOGIC: No headaches, no weakness, no numbness. Medications were reviewed. Patient does have bibasilar crackles, because of which I will obtain a chest x-ray. IV fluids will be discontinued at this point. Medications were reviewed. PHYSICAL EXAMINATION: Temperature 98.6, pulse of 70, respiratory rate 16, blood pressure 135/75, saturating at 99% on room air. GENERAL: The patient is alert and oriented x3, not in any acute distress. Well developed, well nourished. HEENT: Pupils are round and equally reacting to light. EOMI. No scleral icterus. No conjunctival pallor. Normocephalic, atraumatic. No pharyngeal erythema. No thyromegaly. CARDIOVASCULAR: S1 and S2 present. No murmurs, rubs, or gallops. PULMONARY: Bibasilar crackles heard, ( ). No wheezing was appreciated. ABDOMEN: Soft, nontender, nondistended, normoactive bowel sounds. No palpable organomegaly. MUSCULOSKELETAL: No joint swelling or deformity. EXTREMITIES: No cyanosis, clubbing, or pedal edema. NEUROLOGICAL: Gross neurological examination did not reveal any focal deficits. SKIN: No rashes. LABORATORY DATA: Hemoglobin 9.4, creatinine has gone up minimally 1.11. ASSESSMENT AND PLAN: 1. Hematuria secondary to arterial bleeding. Patient underwent fulguration. 2. Asymptomatic ( ) for which patient will not need any antibiotics. 3. Acute renal failure. Patient received IV fluids. Will check kidney function today. 4. Hypothyroidism. 5. Acute blood loss anemia from hematuria. Patient probably will be discharged tomorrow to subacute rehab.
[2016-05-08] MEDS: LEVOTHYROXINE 50 MCG TAB PO SCH (20:09)
[2016-05-08] MEDS: HYDROcodone/APAP 5-325MG 1 EACH TAB PO SCH (20:09)
[2016-05-09 01:32] VITALS: BP 123/63; PULSE 65; TEMP 97.8
[2016-05-09] MEDS: ARTIFICIAL TEARS-HYPROMELLOSE DROPS 15 ML BTL BOTH EYES SCH ×2 (08:45→12:31)
[2016-05-09] MEDS: GEMFIBROZIL 600 MG TAB PO SCH (08:45)
[2016-05-09] MEDS: DULoxetine HCL 60 MG CAPSULE.DR PO SCH (08:45)
[2016-05-09] MEDS: FAMOTIDINE 20 MG TAB PO SCH (08:46)
[2016-05-09] MEDS: TOPIRAMATE 25 MG TAB PO SCH (08:46)
--- NOTE | 2016-05-09 15:59 | DS ---
DATE OF ADMISSION: 05/04/2016 DATE OF DISCHARGE: 05/09/2016 FINAL DIAGNOSES: 1. Acute severe anemia from severe hematuria from a bladder mass; pathology unknown. 2. Gastroesophageal reflux disease. 3. Hyperlipidemia. 4. Essential hypertension. 5. Hypothyroidism. 6. Bipolar disorder, stable. HOSPITAL COURSE: This patient presented with hematuria. Hemoglobin did drop down to 6.7. Patient received a total of 4 units of blood. Patient underwent fulguration of a bladder mass by Dr. Dimas. Pathology is pending. Patient's hemoglobin at the time of discharge is 9.4. Patient at baseline uses a walker. On examination, lungs are clear. CARDIOVASCULAR: First and second sounds normal. CONSULTATIONS: 1. Dr. Dimas from Urology. 2. Dr. López from [facility]. Also patient has an ovarian mass on the right side. She was seen by Dr. López. Patient will need further workup for the same. DISCHARGE MEDICATIONS: 1. Tylenol 650 mg q.4 p.r.n. 2. Artificial Tears 1 drop to both eyes q.i.d. 3. Dulcolax 10 mg rectally daily p.r.n. 4. Combigan 0.2% to 0.5% eyedrops one drop to left eye b.i.d. 5. Vitamin D3 1000 units p.o. daily. 6. Cymbalta 60 mg p.o. daily. 7. Pepcid 20 mg p.o. daily. 8. Lopid 600 mg p.o. b.i.d. 9. Lacri-Lube ointment right eye daily. 10. Synthroid 50 mcg p.o. at bedtime. 11. Imodium A-D 4 mg p.o. b.i.d. p.r.n. 12. Milk of Magnesia 2400 mg p.o. daily p.r.n. 13. Multivitamin 1 tablet p.o. daily. 14. Fleet Adult rectally daily p.r.n. 15. Nystatin topically daily p.r.n. 16. Potassium 10 mEq daily. 17. Topamax 25 mg p.o. daily. 18. Topamax 100 mg p.o. daily. 19. New Century 5 one tablet p.o. at bedtime. Follow up with Dr. Dimas in [address] García at [facility]. Follow up with Dr. López in one week. DISPOSITION: [facility]. LABS: CBC, BMP in 3 days.
== END 2016-05-09 16:51 | DRG 663 ==
LOC: EC 15:02 → 6SEL 18:10 → EEVIPCON 18:10 → 6SEL 20:00 → 3SUR 05-05 23:17
PROVIDERS: ADMIT Hospitalist; ATTEND Hospitalist
PROC: 30230N1 Transfusion of Nonautologous Red Blood Cells into Peripheral Vein, Open Approach (ICD-10-PCS; 2016-05-04)
PROC: 0TBB8ZX Excision of Bladder, Via Natural or Artificial Opening Endoscopic, Diagnostic (ICD-10-PCS; 2016-05-06)
PROC: 0TCB8ZZ Extirpation of Matter from Bladder, Via Natural or Artificial Opening Endoscopic (ICD-10-PCS; 2016-05-06)
PROC: 0W3R8ZZ Control Bleeding in Genitourinary Tract, Via Natural or Artificial Opening Endoscopic (ICD-10-PCS; principal; 2016-05-06 09:30)
DX: N30.41 Irradiation cystitis with hematuria (principal); D62 Acute posthemorrhagic anemia; N17.9 Acute kidney failure, unspecified; E66.01 Morbid (severe) obesity due to excess calories; N28.1 Cyst of kidney, acquired; E86.9 Volume depletion, unspecified; I12.9 Hypertensive chronic kidney disease with stage 1 through stage 4 chronic kidney disease, or unspecified chronic kidney disease; E03.9 Hypothyroidism, unspecified; E78.5 Hyperlipidemia, unspecified; I25.10 Atherosclerotic heart disease of native coronary artery without angina pectoris; K21.9 Gastro-esophageal reflux disease without esophagitis; H40.9 Unspecified glaucoma; F31.9 Bipolar disorder, unspecified; N18.3 Chronic kidney disease, stage 3 (moderate); Z92.3 Personal history of irradiation; Z85.43 Personal history of malignant neoplasm of ovary; Z85.42 Personal history of malignant neoplasm of other parts of uterus; Z79.82 Long term (current) use of aspirin; Z79.891 Long term (current) use of opiate analgesic; Z79.899 Other long term (current) drug therapy; Y84.2 Radiological procedure and radiotherapy as the cause of abnormal reaction of the patient, or of later complication, without mention of misadventure at the time of the procedure; N83.209 Unspecified ovarian cyst, unspecified side
CPT/HCPCS: 36415; 36430; 76770; 76830; 76856; 80048; 80053; 81001; 82150; 83690; 85025; 85027; 85610; 85730; 86304; 86850; 86900; 86901; 86920; 88305; 93976; 96361; 96374; 99285

== ENCOUNTER 2016-05-25 10:29 | Inpatient (IN) | payer MEDICARE, OTHER ==
--- NOTE | 2016-05-25 10:58 | ED ---
General Adult HPI - General Source: patient, RN notes reviewed Mode of arrival: EMS Limitations: physical limitation <Venancio Loera - Last Filed: 05/25/16 13:09> <Arthur Hoover - Last Filed: 05/25/16 13:34> - General Chief complaint: Recheck/Abnormal Lab/Rx Stated complaint: Abnormal Labs Time Seen by Provider: 05/25/16 10:34 - History of Present Illness Initial comments: 55-year-old female patient with a past medical history significant for ovarian cancer with radiation in 2015, presents to emergency department for complaints of low hemoglobin and hematuria. Patient Had blood drawn this morning at [facility] and was found to have a hemoglobin of 6.2. She states that she started having bleeding in her urine on . Patient states since then she has become progressively more weak, fatigued, and dizzy. Patient states that she does pass clots in her urine occasionally. Denies any abdominal pain, shortness of breath, chest pain, dark, bloody, or black stools. Patient states she did have a similar episode of bleeding in early April and at that time the source was found to be the bladder. She has had 4 blood transfusions in the past with the last being in early April. (Venancio Loera) - Related Data Home Medications Medication Instructions Recorded Confirmed Acetaminophen Tab [Tylenol] 650 mg PO Q4H PRN 05/04/16 05/25/16 Artificial Tears-Hypromellose 1 drops BOTH EYES QID 05/04/16 05/25/16 [Artificial Tear Drops] Bisacodyl [Dulcolax] 10 mg RECTAL DAILY PRN 05/04/16 05/25/16 Brimonidine Tartrate/Timolol 1 drop LEFT EYE BID 05/04/16 05/25/16 [Combigan 0.2%-0.5% Eye Drops] Cholecalciferol [Vitamin D3] 1,000 unit PO DAILY@1700 05/04/16 05/25/16 DULoxetine HCL [Cymbalta] 60 mg PO DAILY 05/04/16 05/25/16 Famotidine [Pepcid] 20 mg PO QAM 05/04/16 05/25/16 Gemfibrozil [Lopid] 600 mg PO AC-BID 05/04/16 05/25/16 Levothyroxine Sodium [Synthroid] 50 mcg PO HS 05/04/16 05/25/16 Loperamide HCl [Imodium A-D] 4 mg PO BID PRN 05/04/16 05/25/16 Magnesium Hydroxide [Milk of 2,400 mg PO DAILY PRN 05/04/16 05/25/16 Magnesia] Multivitamins, Thera [Multivitamin] 1 tab PO DAILY@1700 05/04/16 05/25/16 Na Phos,M-B/Na Phos,Di-Ba [Fleet 133 ml RECTAL DAILY PRN 05/04/16 05/25/16 Adult] Nystatin 100,000 Unit/gm Powd 1 applic TOPICAL DAILY PRN 05/04/16 05/25/16 [Mycostatin Powder] Potassium Chloride [K-Tab ER] 10 meq PO DAILY@1700 05/04/16 05/25/16 Ranitidine HCl [Zantac] 150 mg PO HS 05/04/16 05/25/16 Topiramate [Topamax] 25 mg PO DAILY 05/04/16 05/25/16 Topiramate [Topamax] 100 mg PO DAILY@1700 05/04/16 05/25/16 Lacri-Lube Ointment 1 applic RIGHT EYE DAILY 05/25/16 05/25/16 Previous Rx's Medication Instructions Recorded HYDROcodone/APAP 5-325MG [Piru 1 tab PO HS #14 tab 05/09/16 5-325] Allergies Allergy/AdvReac Type Severity Reaction Status Date / Time kiwi Allergy Unknown Verified 05/25/16 12:46 pineapple Allergy Unknown Verified 05/25/16 12:46 Review of Systems ROS Other: All systems not noted in ROS Statement are negative. <Venancio Loera - Last Filed: 05/25/16 13:09> ROS Other: All systems not noted in ROS Statement are negative. <Arthur Hoover - Last Filed: 05/25/16 13:34> ROS Statement: Those systems with pertinent positive or pertinent negative responses have been documented in the HPI. Past Medical History Past Medical History: Cancer, GERD/Reflux, Hyperlipidemia, Hypertension, Thyroid Disorder Additional Past Medical History / Comment(s): malignant neoplasm of uterus, atherosclerotic heart disease, angina, ovarian Cancer with radiation, HIATAL HERNIA,UTI,, RT EYE GLAUCOMA History of Any Multi-Drug Resistant Organisms: None Reported Past Surgical History: Tubal Ligation Additional Past Surgical History / Comment(s): ? tonsils-pt not sure Past Anesthesia/Blood Transfusion Reactions: No Reported Reaction Additional Past Anesthesia/Blood Transfusion Reaction / Comment(s): never had any blood trasnfusion before Past Psychological History: Anxiety, Bipolar, Depression Additional Psychological History / Comment(s): pt currently resides at [facility], uses a walker to get out of bed and to her w/c. Smoking Status: Never smoker Past Alcohol Use History: None Reported Past Drug Use History: None Reported - Past Family History Father Family Medical History: Unable to Obtain Mother Family Medical History: Unable to Obtain <Venancio Loera - Last Filed: 05/25/16 13:09> General Exam Limitations: no limitations, physical limitation General appearance: alert, in no apparent distress Head exam: Present: atraumatic, normocephalic Eye exam: Present: normal appearance, PERRL Pupils: Present: normal accommodation ENT exam: Present: normal exam, normal oropharynx, mucous membranes moist Neck exam: Present: normal inspection, full ROM, lymphadenopathy Respiratory exam: Present: normal lung sounds bilaterally. Absent: respiratory distress, wheezes, rales, rhonchi Cardiovascular Exam: Present: regular rate, normal rhythm, normal heart sounds. Absent: irregular rhythm, systolic murmur, diastolic murmur, rubs, gallop, clicks GI/Abdominal exam: Present: soft, normal bowel sounds, other (Morbid obesity). Absent: distended, tenderness, guarding, rebound, rigid Rectal exam: Present: normal inspection, normal rectal tone. Absent: black stool, bloody stool, fecal impaction, hemorrhoids, mass, tenderness External exam: Present: normal external exam, other (Large clots noted in brief) . Absent: erythema, swelling, lesions Neurological exam: Present: alert, oriented X3, CN II-XII intact. Absent: altered Psychiatric exam: Present: normal affect Skin exam: Present: warm, dry, pallor. Absent: normal color, rash, petechiae <Venancio Loera - Last Filed: 05/25/16 13:09> General appearance: alert, in no apparent distress Head exam: Present: atraumatic, normocephalic, normal inspection Eye exam: Present: normal appearance, PERRL, EOMI. Absent: scleral icterus, conjunctival injection, periorbital swelling ENT exam: Present: normal exam, mucous membranes moist Neck exam: Present: normal inspection. Absent: tenderness, meningismus, lymphadenopathy Respiratory exam: Present: normal lung sounds bilaterally. Absent: respiratory distress, wheezes, rales, rhonchi, stridor Cardiovascular Exam: Present: regular rate, normal rhythm, normal heart sounds. Absent: systolic murmur, diastolic murmur, rubs, gallop, clicks GI/Abdominal exam: Present: soft, normal bowel sounds. Absent: distended, tenderness, guarding, rebound, rigid Extremities exam: Present: normal inspection, full ROM, normal capillary refill. Absent: tenderness, pedal edema, joint swelling, calf tenderness Back exam: Present: normal inspection Neurological exam: Present: alert, oriented X3, CN II-XII intact Psychiatric exam: Present: normal affect, normal mood Skin exam: Present: warm, dry, intact, normal color. Absent: rash <Arthur Hoover - Last Filed: 05/25/16 13:34> Course <Venancio Loera - Last Filed: 05/25/16 13:09> <Arthur Hoover - Last Filed: 05/25/16 13:34> Vital Signs 05/25/16 05/25/16 05/25/16 10:33 11:04 11:42 Temperature 98.7 F Pulse Rate 79 71 62 Respiratory 18 18 18 Rate Blood Pressure 105/63 108/64 106/69 O2 Sat by Pulse 99 100 100 Oximetry 05/25/16 13:18 Temperature Pulse Rate 70 Respiratory 16 Rate Blood Pressure 101/56 O2 Sat by Pulse 100 Oximetry - Reevaluation(s) Reevaluation #1: 05/25/16 13:3 Patient is having hematuria with signs of lightheadedness weakness and dizziness (Arthur Hoover) EKG Findings - EKG Comments: EKG Findings:: EKG obtained at 1109, reveals normal sinus rhythm, with a ventricular rate of 74, WV interval 178, QRS duration 84, QT 416, QTc 461. Left axis deviation. ST and T-wave abnormalities, prolonged QT interval. EKG compared with previous study from 07/07/2008, changes appear chronic. <Venancio Loera - Last Filed: 05/25/16 13:09> Medical Decision Making - Lab Data Result diagrams: 05/25/16 10:55 05/25/16 10:55 <Venancio Loera - Last Filed: 05/25/16 13:09> - Lab Data Result diagrams: 05/25/16 10:55 05/25/16 10:55 <Arthur Hoover - Last Filed: 05/25/16 13:34> - Medical Decision Making 55 female ER for evaluation of weakness dizziness blood in her urine. Patient is chronic hematuria symptomatic anemia. Will be admitted for hemoglobin monitoring, transfusion (Arthur Hoover) - Lab Data Lab Results 05/25/16 05/25/16 05/25/16 Range/Units 10:55 10:55 10:55 WBC 3.4 L (3.8-10.6) k/uL RBC 2.22 L (3.80-5.40) m/uL Hgb 7.1 L (11.4-16.0) gm/dL Hct 21.4 L (34.0-46.0) % MCV 96.4 (80.0-100.0) fL MCH 32.0 (25.0-35.0) pg MCHC 33.2 (31.0-37.0) g/dL RDW 18.9 H (11.5-15.5) % Plt Count 312 (150-450) k/uL Neutrophils % (Manual) 57.5 % Band Neutrophils % 1.5 % Lymphocytes % (Manual) 32.5 % Monocytes % (Manual) 6.5 % Eosinophils % (Manual) 0.5 % Basophils % (Manual) 0.5 % Metamyelocytes % 0.5 % Myelocytes % 0.5 % Neutrophils # (Manual) 2.0 (1.3-7.7) k/uL Lymphocytes # (Manual) 1.1 (1.0-4.8) k/uL Monocytes # (Manual) 0.2 (0-1.0) k/uL Eosinophils # (Manual) 0.0 (0-0.7) k/uL Basophils # (Manual) 0.0 (0-0.2) k/uL Nucleated RBCs 2 H (0-0) /100 WBC Manual Slide Review Performed Hypochromasia Slight Poikilocytosis Moderate Anisocytosis Slight Macrocytosis Slight PT (9.0-12.0) sec INR (<1.1) APTT (22.0-30.0) sec Sodium (137-145) mmol/L Potassium (3.5-5.1) mmol/L Chloride (98-107) mmol/L Carbon Dioxide (22-30) mmol/L Anion Gap mmol/L BUN (7-17) mg/dL Creatinine (0.52-1.04) mg/dL Est GFR (MDRD) Af Amer (>60 ml/min/1.73 sqM) Est GFR (MDRD) Non-Af (>60 ml/min/1.73 sqM) Glucose (74-99) mg/dL Calcium (8.4-10.2) mg/dL Total Bilirubin (0.2-1.3) mg/dL AST (14-36) U/L ALT (9-52) U/L Alkaline Phosphatase (38-126) U/L Total Creatine Kinase 22 L (30-135) U/L CK-MB (CK-2) <0.2 (0.0-2.4) ng/mL CK-MB (CK-2) Rel Index Troponin I <0.012 (0.000-0.034) ng/mL Total Protein (6.3-8.2) g/dL Albumin (3.5-5.0) g/dL Urine Color Urine Appearance (Clear) Urine pH Urine Protein Urine Glucose (UA) Urine Ketones Urine Blood (Negative) Urine Nitrate Urine Bilirubin Urine Urobilinogen Ur Leukocyte Esterase Urine RBC (0-5) /hpf Urine WBC (0-5) /hpf Stool Occult Blood (Negative) Blood Type A Positive Blood Type Recheck No Antibody Screen NEGATIVE Spec Expiration Date 05/28/2016 - 235405/25/16 05/25/16 05/25/16 Range/Units 10:55 10:55 12:07 WBC (3.8-10.6) k/uL RBC (3.80-5.40) m/uL Hgb (11.4-16.0) gm/dL Hct (34.0-46.0) % MCV (80.0-100.0) fL MCH (25.0-35.0) pg MCHC (31.0-37.0) g/dL RDW (11.5-15.5) % Plt Count (150-450) k/uL Neutrophils % (Manual) % Band Neutrophils % % Lymphocytes % (Manual) % Monocytes % (Manual) % Eosinophils % (Manual) % Basophils % (Manual) % Metamyelocytes % % Myelocytes % % Neutrophils # (Manual) (1.3-7.7) k/uL Lymphocytes # (Manual) (1.0-4.8) k/uL Monocytes # (Manual) (0-1.0) k/uL Eosinophils # (Manual) (0-0.7) k/uL Basophils # (Manual) (0-0.2) k/uL Nucleated RBCs (0-0) /100 WBC Manual Slide Review Hypochromasia Poikilocytosis Anisocytosis Macrocytosis PT 11.0 (9.0-12.0) sec INR 1.1 (<1.1) APTT 25.5 (22.0-30.0) sec Sodium 142 (137-145) mmol/L Potassium 3.9 (3.5-5.1) mmol/L Chloride 106 (98-107) mmol/L Carbon Dioxide 22 (22-30) mmol/L Anion Gap 14 mmol/L BUN 14 (7-17) mg/dL Creatinine 1.07 H (0.52-1.04) mg/dL Est GFR (MDRD) Af Amer >60 (>60 ml/min/1.73 sqM) Est GFR (MDRD) Non-Af 53 (>60 ml/min/1.73 sqM) Glucose 109 H (74-99) mg/dL Calcium 9.5 (8.4-10.2) mg/dL Total Bilirubin 0.9 (0.2-1.3) mg/dL AST 45 H (14-36) U/L ALT 22 (9-52) U/L Alkaline Phosphatase 132 H (38-126) U/L Total Creatine Kinase (30-135) U/L CK-MB (CK-2) (0.0-2.4) ng/mL CK-MB (CK-2) Rel Index Troponin I (0.000-0.034) ng/mL Total Protein 6.7 (6.3-8.2) g/dL Albumin 3.6 (3.5-5.0) g/dL Urine Color Dark Red Urine Appearance Turbid H (Clear) Urine pH PRODUCTION SUPPORT DEVELOPER Urine Protein PRODUCTION SUPPORT DEVELOPER Urine Glucose (UA) PRODUCTION SUPPORT DEVELOPER Urine Ketones PRODUCTION SUPPORT DEVELOPER Urine Blood Large H (Negative) Urine Nitrate PRODUCTION SUPPORT DEVELOPER Urine Bilirubin PRODUCTION SUPPORT DEVELOPER Urine Urobilinogen PRODUCTION SUPPORT DEVELOPER Ur Leukocyte Esterase PRODUCTION SUPPORT DEVELOPER Urine RBC >182 H (0-5) /hpf Urine WBC >182 H (0-5) /hpf Stool Occult Blood (Negative) Blood Type Blood Type Recheck Antibody Screen Spec Expiration Date 05/25/16 Range/Units 12:51 WBC (3.8-10.6) k/uL RBC (3.80-5.40) m/uL Hgb (11.4-16.0) gm/dL Hct (34.0-46.0) % MCV (80.0-100.0) fL MCH (25.0-35.0) pg MCHC (31.0-37.0) g/dL RDW (11.5-15.5) % Plt Count (150-450) k/uL Neutrophils % (Manual) % Band Neutrophils % % Lymphocytes % (Manual) % Monocytes % (Manual) % Eosinophils % (Manual) % Basophils % (Manual) % Metamyelocytes % % Myelocytes % % Neutrophils # (Manual) (1.3-7.7) k/uL Lymphocytes # (Manual) (1.0-4.8) k/uL Monocytes # (Manual) (0-1.0) k/uL Eosinophils # (Manual) (0-0.7) k/uL Basophils # (Manual) (0-0.2) k/uL Nucleated RBCs (0-0) /100 WBC Manual Slide Review Hypochromasia Poikilocytosis Anisocytosis Macrocytosis PT (9.0-12.0) sec INR (<1.1) APTT (22.0-30.0) sec Sodium (137-145) mmol/L Potassium (3.5-5.1) mmol/L Chloride (98-107) mmol/L Carbon Dioxide (22-30) mmol/L Anion Gap mmol/L BUN (7-17) mg/dL Creatinine (0.52-1.04) mg/dL Est GFR (MDRD) Af Amer (>60 ml/min/1.73 sqM) Est GFR (MDRD) Non-Af (>60 ml/min/1.73 sqM) Glucose (74-99) mg/dL Calcium (8.4-10.2) mg/dL Total Bilirubin (0.2-1.3) mg/dL AST (14-36) U/L ALT (9-52) U/L Alkaline Phosphatase (38-126) U/L Total Creatine Kinase (30-135) U/L CK-MB (CK-2) (0.0-2.4) ng/mL CK-MB (CK-2) Rel Index Troponin I (0.000-0.034) ng/mL Total Protein (6.3-8.2) g/dL Albumin (3.5-5.0) g/dL Urine Color Urine Appearance (Clear) Urine pH Urine Protein Urine Glucose (UA) Urine Ketones Urine Blood (Negative) Urine Nitrate Urine Bilirubin Urine Urobilinogen Ur Leukocyte Esterase Urine RBC (0-5) /hpf Urine WBC (0-5) /hpf Stool Occult Blood Negative (Negative) Blood Type Blood Type Recheck Antibody Screen Spec Expiration Date Disposition Time of Disposition: 13:10 <Venancio Loera - Last Filed: 05/25/16 13:09> <Arthur Hoover - Last Filed: 05/25/16 13:34> Clinical Impression: Symptomatic anemia, Gross hematuria Disposition: ADMITTED IP TO THIS [facility] Condition: Stable Referrals: Ludwig García DO [Primary Care Provider] - 1-2 days
[2016-05-25 11:26] LABS: ALT 22 U/L (9-52); AST 45 U/L (14-36); Alkaline Phosphatase 132 U/L (38-126); Anion Gap 14 mmol/L; Anisocytosis Slight; Blood Urea Nitrogen 14 mg/dL (7-17); CH 31.7; CHCM 33.3; Calcium 9.5 mg/dL (8.4-10.2); Carbon Dioxide 22 mmol/L (22-30); Chloride 106 mmol/L (98-107); Glucose 109 mg/dL (74-99); HCT 21.4 % (34.0-46.0); HDW 4.47; HGB 7.1 gm/dL (11.4-16.0); Hypochromasia Slight; MCHC 33.2 g/dL (31.0-37.0); MCV 96.4 fL (80.0-100.0); Macrocytosis Slight; Mean Platelet Volume 7.7; Non-African American GFR(MDRD) 53 (>60 ml/min/1.73 sqM); Poikilocytosis Moderate; Potassium 3.9 mmol/L (3.5-5.1); RBC 2.22 m/uL (3.80-5.40); RDW 18.9 % (11.5-15.5); Sodium 142 mmol/L (137-145); Total Bilirubin 0.9 mg/dL (0.2-1.3); Total Protein 6.7 g/dL (6.3-8.2); WBC (Perox) 3.38
[2016-05-25 11:28] LABS: INR 1.1 (<1.1); Partial Thromboplastin Time 25.5 sec (22.0-30.0)
[2016-05-25 11:35] LABS: Creatine Kinase 22 U/L (30-135)
[2016-05-25 11:43] LABS: Add Differential Manual Differential
[2016-05-25 11:46] LABS: Band Neutrophils % 1.5 %; Metamyelocytes % 0.5 %; Myelocytes % 0.5 %; Nucleated Red Blood Cells 2 /100 WBC (0-0); Total Cells Counted 200
[2016-05-25 11:47] LABS: Manual Review Performed; WBC 3.4 k/uL (3.8-10.6)
[2016-05-25 11:48] LABS: Creatine Kinase MB <0.2 ng/mL (0.0-2.4); Troponin I <0.012 ng/mL (0.000-0.034)
[2016-05-25 12:38] LABS: Appearance,Urine Turbid (Clear); Particle Count 10978; RBC,Urine >182 /hpf (0-5); UA Billing (MACRO vs. MICRO) MICRO; WBC,Urine >182 /hpf (0-5)
[2016-05-25] MEDS ORDERED: NALOXONE 0.4 MG/ML 1 ML VIAL IV PRN (13:10)
[2016-05-25] MEDS ORDERED: ONDANSETRON 4 MG/2 ML VIAL IVP PRN (13:10)
[2016-05-25] MEDS ORDERED: BISACODYL 10 MG SUPP RECTAL PRN (13:11)
[2016-05-25] MEDS: SODIUM CHLORIDE 0.9% 1,000 ML IV SCH (14:39)
[2016-05-25] MEDS: POTASSIUM CHLORIDE ER 10 MEQ TAB.ER.PRT PO SCH (16:08)
[2016-05-25] MEDS: TOPIRAMATE 100 MG TAB PO SCH (16:08)
[2016-05-25] MEDS: GEMFIBROZIL 600 MG TAB PO SCH (16:08)
[2016-05-25] MEDS: FAMOTIDINE 20 MG TAB PO SCH (21:36)
[2016-05-25] MEDS: LEVOTHYROXINE 50 MCG TAB PO SCH (21:36)
[2016-05-25] MEDS: HYDROcodone/APAP 5-325MG 1 EACH TAB PO SCH (21:38)
--- NOTE | 2016-05-25 22:32 | CONS ---
DATE OF CONSULTATION: 05/25/2016 REASON FOR CONSULTATION: Gross hematuria. The patient is a 55-year-old female admitted through the emergency room for evaluation of anemia and gross hematuria. Patient has a history of intermittent gross hematuria which dates back for nearly a month. The patient was admitted on 05/04/2016 due to the bleeding and anemia. Ultrasound of the kidneys and bladder showed no upper urinary tract abnormalities other than a small benign right renal cyst. There was a questionable growth on the floor of the bladder. Dr. 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 Active bleeding was noted from the bladder, which was cauterized. The patient said that her urine cleared and she was discharged on 05/09. Her urine remained clear until 05/19. Since then she has had intermittent hematuria which has become persistent. Her hemoglobin on 05/20 was 8.6. Her hemoglobin earlier today was 6.2. Patient has become more fatigued, and in view of her symptoms it was elected to admit her for further evaluation. The patient has a history of ovarian and uterine cancer which was apparently diagnosed by Dr. Serrano several years ago. Due to the patient's obesity it was elected to treat this apparently with radiation therapy which was performed at [facility]. The patient was evaluated by Dr. López when she was admitted in 05/13 and at that time a bilobed mass in the right adnexa was seen on a pelvic ultrasound. Dr. López recommended a CEA-125 for further evaluation, but it is unclear whether this was actually completed. The patient says she is currently passing clots in her urine. She is voiding every 1 to 2 hours during the day and at least once or twice at night. She denies any lower abdominal pain. The patient's past medical history is significant in regard to benign hypertension. The only surgery that she has had in the past was a bilateral tubal ligation. There is a history of hypothyroidism and glaucoma. Current medications include: 1. Dulcolax. 2. Cymbalta. 3. Pepcid. 4. Lopid. 5. Synthroid. 6. Zantac. 7. Topamax. Review of systems is significant mainly in regard to the above. Physical exam reveals a 55-year-old female who is alert and oriented. Patient has moribund obesity with a large abdominal pannus. CHEST: Breathing is unlabored. ABDOMEN: No focal tenderness. As previously noted, a large pannus is present, and because of this a relatively large intra-abdominal mass could not be palpated. Pelvic exam revealed some blood at the urethral meatus. No catheter was in place. IMPRESSION: 1. Gross hematuria. This is most likely related to continued bleeding from irradiation cystitis. 2. Right adnexal mass. Unclear whether this could be related to her history of ovarian cancer. RECOMMENDATION: A Crane catheter will be inserted to irrigate any clots from the bladder to allow the bladder to contract. If the gross hematuria persists, repeat cystoscopy under anesthesia may be required to control the bleeding. Dr. Dimas evaluated the patient last month and will follow up with her. Thank you for allowing me to participate in the care of this patient. YOLANDA
[2016-05-26] MEDS: SODIUM CHLORIDE 0.9% 1,000 ML IV SCH ×2 (05:22→15:13)
[2016-05-26] MEDS: ACETAMINOPHEN TAB 325 MG TAB PO PRN ×2 (06:10→13:50)
[2016-05-26] MEDS: TOPIRAMATE 25 MG TAB PO SCH (07:27)
[2016-05-26] MEDS: FAMOTIDINE 20 MG TAB PO SCH (07:27)
[2016-05-26] MEDS: DULoxetine HCL 60 MG CAPSULE.DR PO SCH (07:27)
[2016-05-26] MEDS: GEMFIBROZIL 600 MG TAB PO SCH ×2 (07:27→15:14)
[2016-05-26] MEDS ORDERED: FAMOTIDINE 20 MG TAB PO SCH (09:00)
[2016-05-26 09:51] LABS: Anion Gap 10 mmol/L; Blood Urea Nitrogen 14 mg/dL (7-17); Calcium 8.8 mg/dL (8.4-10.2); Carbon Dioxide 23 mmol/L (22-30); Chloride 105 mmol/L (98-107); Glucose 142 mg/dL (74-99); Non-African American GFR(MDRD) 52 (>60 ml/min/1.73 sqM); Potassium 3.9 mmol/L (3.5-5.1); Sodium 138 mmol/L (137-145)
[2016-05-26 10:05] LABS: Anisocytosis Moderate; CHCM 32.7; HCT 21.9 % (34.0-46.0); HDW 4.13; Hypochromasia Slight; MCH 29.4 pg (25.0-35.0); MCHC 31.6 g/dL (31.0-37.0); MCV 92.8 fL (80.0-100.0); Macrocytosis Slight; Poikilocytosis Moderate; RBC 2.36 m/uL (3.80-5.40); WBC (Perox) 4.47
[2016-05-26 10:08] LABS: HGB 6.9 gm/dL (11.4-16.0)
[2016-05-26] MEDS ORDERED: LOPERAMIDE 2 MG CAP PO PRN (11:17)
--- NOTE | 2016-05-26 11:40 | P.PN ---
Progress Note - Text The patient denies specific complaints. She is afebrile with stable vital signs. The abdomen is soft and non-distended. The Crane catheter is draining urine which is bloody in appearance. I irrigated the catheter using a piston syringe, removing several clots. Hemoglobin level this morning was 6.9, down from 7.1 at the time of admission. The Crane catheter will remain in place, and will be irrigated as needed. I am hopeful that bladder decompression will result in diminished bleeding. However, she will not be given anything to eat after midnight in the event that cystoscopy is required tomorrow.
[2016-05-26] MEDS: TIMOLOL 0.5% OPHTH DROPS 5 ML BTL LEFT EYE SCH ×2 (11:46→20:17)
[2016-05-26] MEDS: ARTIFICIAL TEARS OINTMENT 3.5 GM TUBE RIGHT EYE SCH (11:46)
[2016-05-26] MEDS: ARTIFICIAL TEARS-HYPROMELLOSE DROPS 15 ML BTL BOTH EYES SCH ×3 (11:46→20:22)
[2016-05-26] MEDS: BRIMONIDINE TARTRATE 0.2% DROPS 5 ML BTL LEFT EYE SCH ×2 (11:46→20:17)
[2016-05-26 12:00] LABS: Add Differential Manual Differential
[2016-05-26 12:08] LABS: Band Neutrophils % 0.5 %; Manual Review Performed; Myelocytes % 0.5 %; Nucleated Red Blood Cells 2 /100 WBC (0-0); Polychromasia Present; Total Cells Counted 200; WBC 4.2 k/uL (3.8-10.6)
--- NOTE | 2016-05-26 12:15 | HP ---
DATE OF ADMISSION: 05/25/2016 PRESENTING COMPLAINT: Bleeding from the urethra. HISTORY OF PRESENTING COMPLAINT: This is a 55-year-old patient who was here at the beginning of April. Patient was having recurrent bleeding from hematuria and she did have cystoscopy done by Dr. Dimas. Patient at that time did get a total of 4 units of blood and underwent fulguration of the bladder wall and according to him this was more of a chronic cystitis, not really a bladder mass and patient's pathology did come back showing chronic cystitis. There was no malignancy. The patient for the last 2 days has been passing clots in the bladder ( ) again. The patient at baseline does use a walker to get about and currently is at an [facility]END[facility] TO [facility]. The patient's other chronic stable medical conditions include GERD, hyperlipidemia, hypertension, hypothyroid, bipolar disorder. REVIEW OF SYSTEMS: CONSTITUTIONAL: Tired. HEENT: None. RESPIRATORY: None. CARDIOVASCULAR: None. GASTROINTESTINAL: None. GENITOURINARY: None. MUSCULOSKELETAL: Some pain in the joints. DERMATOLOGICAL: None. HEMATOLOGICAL: None. LYMPHATIC: None. PSYCHIATRY: History of bipolar. NEUROLOGICAL: None. Past history of eye disorder, GERD, hyperlipidemia, hypertension, hypothyroid, severe hematuria from cystitis, ovarian cancer treated with radiation, hiatal hernia, right eye glaucoma, UTIs. PAST SURGICAL HISTORY: Cystoscopy with clot evacuation and fulguration of the bleeder, tonsillectomy. Patient did have a cardiac cath that was negative. SOCIAL HISTORY: Patient is a resident of [facility] uses a walker. Has a legal guardian Yamilet Galindo, telephone number [phone]. No history of smoking or alcohol. FAMILY HISTORY: Mother of stomach cancer. HOME MEDICATIONS: 1. Topamax 100 mg p.o. daily at 5 p.m. 2. Topamax 25 mg in the morning. 3. Zantac 150 mg q.h.s. 4. Potassium 10 mEq p.o. daily. 5. Nystatin powder topically p.r.n. 6. Fleets daily p.r.n. 7. Multivitamin 1 tablet p.o. daily. 8. Milk of magnesia 2400 mg p.o. daily p.r.n. 9. Imodium 4 mg p.o. b.i.d. 10. Synthroid 50 mcg p.o. q.h.s. 11. Lacri-lube 1 application right eye daily. 12. [place] 5 one tablet q.h.s. 13. Lopid 600 mg p.o. b.i.d. 14. Pepcid 20 mg p.o. daily. 15. Cymbalta 60 mg p.o. daily. 16. Vitamin D3,1000 units p.o. daily. 17. Dulcolax 10 mg rectal daily p.r.n. 18. Artificial tears one drop to both eyes q.i.d. Allergies to KIWI and PINEAPPLE. On examination, temperature 98.7, pulse 79, respirations 18, blood pressure 105/63, pulse ox 99% on room air. GENERAL APPEARANCE: Well built, BMI of 51.2, lying in bed. EYES: Pupils equal. Conjunctiva pale. HEENT: Oral cavity normal. NECK: JVD not raised. Mass not palpable. RESPIRATORY: Effort normal. Lungs are clear. CARDIOVASCULAR: First and second sounds normal. No edema. ABDOMEN: Soft, nontender. Liver and spleen not palpable. LYMPHATIC: No lymph node palpable in neck or axillae. PSYCHIATRY: Alert and oriented x3. Mood and affect normal. NEUROLOGICAL: Pupils equal. Cranial nerves grossly intact. Power and sensation grossly intact. INVESTIGATIONS: White count 4.3, hemoglobin 6.9. Admission hemoglobin was 7.1. Potassium 3.9. ASSESSMENT: 1. Acute severe hematuria, causing acute blood loss anemia, likely from chronic cystitis as diagnosed on the last admission confirmed by a biopsy. Patient will need probably cystoscopic intervention to stop the bleeder again. Patient had some more blood clots today. 2. Gastroesophageal reflux disease. 3. Hyperlipidemia. 4. Essential hypertension. 5. Hypothyroidism. 6. Bipolar disorder, stable. 7. Chronic gait dysfunction. The patient uses ( ). 8. Morbid obesity, body mass index 51.2. PLAN: Given the patient's blood pressure is down to 96, patient actively bleeding, will go ahead and transfuse 2 units of blood. Follow serial CBC. Dr. Dimas from urology was consulted. I did talk to him earlier today.
[2016-05-26] MEDS: POTASSIUM CHLORIDE ER 10 MEQ TAB.ER.PRT PO SCH (15:14)
[2016-05-26] MEDS: TOPIRAMATE 100 MG TAB PO SCH (15:14)
[2016-05-26] MEDS: LEVOTHYROXINE 50 MCG TAB PO SCH (20:16)
[2016-05-26] MEDS: HYDROcodone/APAP 5-325MG 1 EACH TAB PO SCH (20:18)
[2016-05-27] MEDS: SODIUM CHLORIDE 0.9% 1,000 ML IV SCH ×2 (06:58→17:59)
[2016-05-27] MEDS: GEMFIBROZIL 600 MG TAB PO SCH ×2 (08:25→17:58)
[2016-05-27] MEDS: BRIMONIDINE TARTRATE 0.2% DROPS 5 ML BTL LEFT EYE SCH ×2 (09:00→21:36)
[2016-05-27] MEDS: ARTIFICIAL TEARS-HYPROMELLOSE DROPS 15 ML BTL BOTH EYES SCH ×4 (09:00→21:37)
[2016-05-27] MEDS ORDERED: IV FLUID CONTINUATION 1,000 ML IV ONE (11:37)
[2016-05-27] MEDS ORDERED: fentaNYL (PF) 50 MCG/ML 2 ML AMP ONE (12:26)
[2016-05-27] MEDS ORDERED: PROPOFOL 10 MG/ML 20 ML VIAL IV ONE (12:26)
[2016-05-27] MEDS ORDERED: SUCCINYLCHOLINE CHLORIDE VIAL 200 MG/10 ML VIAL IV ONE (12:26)
[2016-05-27] MEDS ORDERED: LIDOCAINE 1% INJ 10MG/ML (20 ML MDV) ONE (12:26)
[2016-05-27] MEDS: TIMOLOL 0.5% OPHTH DROPS 5 ML BTL LEFT EYE SCH ×2 (14:20→21:37)
[2016-05-27] MEDS: ARTIFICIAL TEARS OINTMENT 3.5 GM TUBE RIGHT EYE SCH (14:20)
[2016-05-27] MEDS: FAMOTIDINE 20 MG TAB PO SCH (14:22)
[2016-05-27] MEDS: TOPIRAMATE 25 MG TAB PO SCH (14:22)
[2016-05-27] MEDS: DULoxetine HCL 60 MG CAPSULE.DR PO SCH (14:22)
[2016-05-27] MEDS: ACETAMINOPHEN TAB 325 MG TAB PO PRN (16:04)
[2016-05-27] MEDS: TOPIRAMATE 100 MG TAB PO SCH (16:04)
[2016-05-27] MEDS: POTASSIUM CHLORIDE ER 10 MEQ TAB.ER.PRT PO SCH (16:05)
[2016-05-27 16:16] LABS: Anisocytosis Moderate; Basophils % (A) 1 %; CH 29.6; CHCM 33.1; Eosinophils # (A) 0.1 k/uL (0-0.7); Eosinophils % (A) 1 %; HDW 3.99; Hypochromasia Slight; Luc # (Auto) 0.12; Luc % (Auto) 3; Lymphocytes # (A) 0.8 k/uL (1.0-4.8); Lymphocytes % (A) 18 %; MCH 28.9 pg (25.0-35.0); MCHC 31.9 g/dL (31.0-37.0); MCV 90.5 fL (80.0-100.0); Macrocytosis Slight; Mean Platelet Volume 7.2; Monocytes # (A) 0.2 k/uL (0-1.0); Monocytes % (A) 4 %; Neutrophils # (A) 3.4 k/uL (1.3-7.7); Neutrophils % (A) 73 %; Poikilocytosis Slight; RDW 21.5 % (11.5-15.5); WBC 4.6 k/uL (3.8-10.6); WBC (Perox) 4.71
[2016-05-27 16:26] LABS: HGB 9.2 gm/dL (11.4-16.0)
[2016-05-27 16:37] LABS: Polychromasia Present; Toxic Granulation Present
--- NOTE | 2016-05-27 19:56 | PN ---
DATE OF SERVICE: 05/27/2016 PRESENTING COMPLAINT: Severe hematuria. INTERVAL HISTORY: This is a patient who was here in April; had severe hematuria; had a cystoscopy and fulguration of the bladder was carried out. Diagnosis was chronic cystitis. No malignancy was found. Patient comes back with severe hematuria yet again and with blood clots. Patient has received a total of 3 units of blood. I saw this patient earlier today. Feeling really weak and tired. Patient is due to go for another cystoscopy today. Just feels rundown. Review of systems done for constitutional, cardiovascular, GI, pulmonary; relevant findings as above. Current medications are reviewed that include IV fluids. On examination, temperature 99.3, pulse 71, respiration 18, blood pressure 92/49, pulse ox 98% on room air. GENERAL APPEARANCE: Lying in bed. Tired-appearing. EYES: Pupils equal. Conjunctivae pale. NECK: JVD not raised. Mass not palpable. RESPIRATORY: Effort normal. Lungs are clear. CARDIOVASCULAR: First and second sounds normal. No edema. ABDOMEN: Soft, nontender. Liver and spleen not palpable. PSYCHIATRY: Alert and oriented x3. Mood and affect tired-appearing. INVESTIGATIONS: No hemoglobin from today. Pending. ASSESSMENT: 1. Acute severe hematuria from area of chronic cystitis, pending to go down for cystoscopic intervention today, causing severe blood loss anemia requiring 3 units of blood. 2. Gastroesophageal reflux disease. 3. Hyperlipidemia. 4. Essential hypertension. 5. Hypothyroidism. 6. Bipolar disorder, stable. 7. Chronic gait dysfunction; uses a walker. 8. Moderate obesity; body mass index of 51.2. PLAN: Will check patient's CBC today and one tomorrow. Await procedure to be done again today.
[2016-05-27] MEDS: HYDROcodone/APAP 5-325MG 1 EACH TAB PO SCH (21:36)
[2016-05-27] MEDS: LEVOTHYROXINE 50 MCG TAB PO SCH (21:37)
[2016-05-28 07:39] VITALS: RESP 18
[2016-05-28] MEDS: ARTIFICIAL TEARS-HYPROMELLOSE DROPS 15 ML BTL BOTH EYES SCH ×3 (08:09→17:35)
[2016-05-28] MEDS: FAMOTIDINE 20 MG TAB PO SCH (08:09)
[2016-05-28] MEDS: DULoxetine HCL 60 MG CAPSULE.DR PO SCH (08:09)
[2016-05-28] MEDS: GEMFIBROZIL 600 MG TAB PO SCH ×2 (08:09→17:52)
[2016-05-28] MEDS: BRIMONIDINE TARTRATE 0.2% DROPS 5 ML BTL LEFT EYE SCH (08:09)
[2016-05-28] MEDS: TOPIRAMATE 25 MG TAB PO SCH (08:09)
[2016-05-28] MEDS: TIMOLOL 0.5% OPHTH DROPS 5 ML BTL LEFT EYE SCH (08:10)
[2016-05-28] MEDS: ARTIFICIAL TEARS OINTMENT 3.5 GM TUBE RIGHT EYE SCH (08:11)
[2016-05-28] MEDS: SODIUM CHLORIDE 0.9% 1,000 ML IV SCH (08:15)
[2016-05-28 09:05] LABS: Anisocytosis Moderate; CH 29.7; CHCM 32.6; HCT 25.6 % (34.0-46.0); HDW 3.94; HGB 8.3 gm/dL (11.4-16.0); Hypochromasia Slight; MCH 29.8 pg (25.0-35.0); MCHC 32.4 g/dL (31.0-37.0); MCV 92.1 fL (80.0-100.0); Macrocytosis Slight; Mean Platelet Volume 7.3; Poikilocytosis Slight; RBC 2.78 m/uL (3.80-5.40); RDW 22.1 % (11.5-15.5); WBC 3.4 k/uL (3.8-10.6); WBC (Perox) 3.65
--- NOTE | 2016-05-28 09:58 | P.PN ---
Subjective The patient underwent cystoscopy, evacuation of clot and fulguration of bleeding yesterday by . Her urine is clear and she feels much better. I will discontinue the Crane and she may be discharged home later today. She should follow-up with next week. Objective - Vital Signs Vital signs: Vital Signs Temp 98.5 F 05/28/16 07:00 Pulse 63 05/28/16 07:00 Resp 18 05/28/16 07:00 BP 106/57 05/28/16 07:00 Pulse Ox 98 05/28/16 09:21 Intake & Output 05/27/16 05/28/16 05/28/16 18:59 06:59 18:59 Intake Total 1900 160 240 Output Total 280 750 Balance 1620 -590 240 Intake: IV 1900 160 Sodium Chloride 0.9% 1, 1350 160 000 ml @ 75 mls/hr IV . [id number] [facility] Rx#:[id number] Oral 240 Output: Urine 270 750 Uretheral (Crane) 270 Estimated Blood Loss 10 Other: Voiding Method Indwelling Catheter Indwelling Catheter - Labs CBC & Chem 7: 05/28/16 07:43 05/26/16 09:24 Labs: Abnormal Lab Results - Last 24 Hours (Table) 05/27/16 05/28/16 Range/Units 15:57 07:43 WBC 3.4 L (3.8-10.6) k/uL RBC 3.20 L 2.78 L (3.80-5.40) m/uL Hgb 9.2 L D 8.3 L (11.4-16.0) gm/dL Hct 29.0 L 25.6 L (34.0-46.0) % RDW 21.5 H 22.1 H (11.5-15.5) % Lymphocytes # 0.8 L (1.0-4.8) k/uL Microbiology - Last 24 Hours (Table) 05/27/16 13:02 Urine Culture - Preliminary Urine,Catheterized
[2016-05-28 10:35] LABS: Add Differential Manual Differential; Manual Review Performed
[2016-05-28 10:39] LABS: Band Neutrophils % 2.5 %; Nucleated Red Blood Cells 1 /100 WBC (0-0); Polychromasia Present; Total Cells Counted 200
--- NOTE | 2016-05-28 13:10 | P.OP ---
Date of Procedure: 05/27/16 Preoperative Diagnosis: Gross Hematuria, Radiation Cystitis Postoperative Diagnosis: Same Procedure(s) Performed: Cystoscopy, Evacuation of Clot, Fulgaration of Bleeder Anesthesia: KRYSTINA Surgeon: Darryl Dimas Estimated Blood Loss (ml): 10 IV fluids (ml): 350 Pathology: other (urine for C & S) Condition: stable Disposition: PACU Indications for Procedure: The patient is a 55-year-old white female with a history of ovarian cancer. She was treated with radiation therapy several years ago. She was admitted last month with a one-week history of vaginal bleeding. She was noted to be anemic, requiring transfusions. Catheterization of the bladder revealed evidence of gross hematuria. A renal ultrasound showed a 1.5 cm right renal cyst, but the kidneys otherwise appeared normal. She underwent cystoscopy, revealing evidence of radiation cystitis. A right lateral wall bleeder was cauterized, and her hematuria resolved. However, the hematuria has recurred, and she was readmitted with anemia requiring transfusion. Operative Findings: Radiation cystitis. Small capacity bladder. Active bleeder right posterior bladder wall. Cloudy urine efflux from right ureteral orifice. Description of Procedure: The patient was taken to the operating room and placed in the dorsolithotomy position, with her legs supported in Niels stirrups. The external genitalia was prepped and draped sterilely. The 30 lens was used to introduce the 22- Panaman[place] Stortz cystoscopic sheath through the urethra and into the bladder under direct vision. Visualization was poor, due to the presence of blood in the bladder. A large clot was identified. This was removed using the Ellik evacuator. Cystoscopy was repeated. The bladder capacity was noted to be small. An actively bleeding vessel was seen on the right posteriorl bladder wall. The Bugbee electrode was used to fulgurate this, obtaining excellent hemostasis. The bladder was then inspected. Both ureteral orifices were of normal anatomic location and configuration. Clear urine effluxed from the left ureteral orifice, but cloudy urine effluxed from the right ureteral orifice. There were no papillary tumors. Mucosal changes were seen in patchy areas, consistent with radiation cystitis. With the beak of the cystoscope adjacent to the right ureteral orifice after cloudy urine effluxed from it, a urien specimen was obtained for C & S. The bladder was emptied and the cystoscope removed. The patient tolerated the procedure well was taken to the recovery room in stable condition.
--- NOTE | 2016-05-28 14:15 | DS ---
DATE OF ADMISSION: 05/25/2016 DATE OF DISCHARGE: Patient is admitted secondary to severe hematuria. Patient had cystoscopy and fulguration of the bladder and probably malignancy. At the time no malignancy was found and patient's repeat cystoscopy and biopsy are pending. Patient's hematuria resolved clinically. Patient received 3 units of blood transfusion. Hemoglobin came down from 9.2 to 8.3, although no clinical evidence of hematuria anymore. Patient's Crane catheter was removed and if patient is able to urinate without Crane catheter, patient will be discharged today to subacute rehabilitation. Patient was seen and examined on the day of discharge. Vitals are stable. PHYSICAL EXAMINATION: GENERAL: The patient is alert and oriented x3, not in any acute distress. Well developed, well nourished. HEENT: Pupils are round and equally reacting to light. EOMI. No scleral icterus. No conjunctival pallor. Normocephalic, atraumatic. No pharyngeal erythema. No thyromegaly. CARDIOVASCULAR: S1 and S2 present. No murmurs, rubs, or gallops. PULMONARY: Chest is clear to auscultation, no wheezing or crackles. ABDOMEN: Soft, nontender, nondistended, normoactive bowel sounds. No palpable organomegaly. MUSCULOSKELETAL: No joint swelling or deformity. EXTREMITIES: No cyanosis, clubbing, or pedal edema. NEUROLOGICAL: No new focal neurological deficits were appreciated. SKIN: No rashes. ASSESSMENT AND PLAN: 1. Acute severe hematuria secondary to chronic cystitis versus malignancy, biopsy results are pending. Patient in the past was negative for any malignancy. 2. Gastroesophageal reflux disease. 3. Hyperlipidemia. 4. Hypertension. 5. Hypothyroidism. 6. Gait dysfunction. 7. Morbid obesity. PLAN: Discharged back to subacute rehab. The patient will follow with Dr. Ludwig García in 1 or 2 days in rehab. The patient will follow with Dr. Wander Dimas in one week. Activity as tolerated. Cardiac diet. I spent greater than 35 minutes in total discharge process. Please refer to my depart summary for further details of discharge medications.
[2016-05-28 15:20] VITALS: BP 110/71; PULSE 64; TEMP 98.1
[2016-05-28] MEDS: TOPIRAMATE 100 MG TAB PO SCH (17:35)
[2016-05-28] MEDS: POTASSIUM CHLORIDE ER 10 MEQ TAB.ER.PRT PO SCH (17:35)
== END 2016-05-28 18:18 | DRG 669 ==
LOC: EC 10:29 → 4MS4W 13:34
PROVIDERS: ADMIT Hospitalist; ATTEND Hospitalist
PROC: 0T5B8ZZ Destruction of Bladder, Via Natural or Artificial Opening Endoscopic (ICD-10-PCS; principal; 2016-05-25)
PROC: 0T9B8ZZ Drainage of Bladder, Via Natural or Artificial Opening Endoscopic (ICD-10-PCS; principal; 2016-05-25)
PROC: 30233N1 Transfusion of Nonautologous Red Blood Cells into Peripheral Vein, Percutaneous Approach (ICD-10-PCS; 2016-05-26)
DX: N30.41 Irradiation cystitis with hematuria (principal); Z68.43 Body mass index [BMI] 50.0-59.9, adult; I10 Essential (primary) hypertension; E66.01 Morbid (severe) obesity due to excess calories; E03.9 Hypothyroidism, unspecified; D50.0 Iron deficiency anemia secondary to blood loss (chronic); E78.5 Hyperlipidemia, unspecified; F31.9 Bipolar disorder, unspecified; H40.9 Unspecified glaucoma; I25.10 Atherosclerotic heart disease of native coronary artery without angina pectoris; K21.9 Gastro-esophageal reflux disease without esophagitis; N28.1 Cyst of kidney, acquired; Y84.2 Radiological procedure and radiotherapy as the cause of abnormal reaction of the patient, or of later complication, without mention of misadventure at the time of the procedure; Z85.42 Personal history of malignant neoplasm of other parts of uterus; Z85.43 Personal history of malignant neoplasm of ovary; Z92.3 Personal history of irradiation; Z79.899 Other long term (current) drug therapy
CPT/HCPCS: 36415; 36430; 80048; 80053; 81001; 82272; 82550; 82553; 84484; 85025; 85027; 85610; 85730; 86850; 86900; 86901; 86920; 87077; 87086; 87186; 93005; 94760; 96361; 99285

== ENCOUNTER → 2017-02-17 | Outpatient (CLI) | payer MEDICARE, OTHER ==
--- NOTE | 2017-02-17 12:17 | CT ---
EXAMINATION TYPE: CT pelvis w con DATE OF EXAM: 02/17/2017 COMPARISON: Ultrasound 05/04/2016 HISTORY: Neoplasm of Endometrium CT DLP: 3316.2 mGycm Automated exposure control for dose reduction was used. CONTRAST: Performed with IV Contrast, patient injected with 100 mL of Omnipaque 300. FINDINGS: Degenerative change of the spine noted. No destructive changes. There is diffuse subcutaneous edema along the soft tissues of the abdomen. Motion artifact limits the exam. Fat-containing anterior abdominal wall hernia noted. Prominent soft tissue nodule subcutaneous tissues anteriorly in the left. Measures 2.5 cm. A persistent bilobed cystic mass within the pelvis as noted by previous ultrasound measuring approxim ately 9.4 cm in greatest axis and Hounsfield unit measurement of 32. Possibly ovarian in etiology. Uterus remains present. No pathologic adenopathy. Visualized portions of the kidneys have a normal ap pearance. Arthropathy of the hips noted. Bladder is decompressed and limited in assessment. IMPRESSION: PERSISTENT OF BILOBED PELVIC MASS NOTED BY PREVIOUS ULTRASOUND NOW MEASURES 9.6 CM AND 32 HOUNSFIELD UNITS AND IS NOT COMPATIBLE WITH A SIMPLE CYST. MAY BE RELATED TO OVARIAN NEOPLASM. 2.5 CM SOFT TISSUE ROUND NODULE IN THE ANTERIOR SUBCUTANEOUS TISSUES ON THE LEFT ON THE AXIAL IMAGES APPEARS TO BE SOMEWHAT MORE LONGITUDINAL AND MORPHOLOGY ON THE CORONAL VIEWS AND SAGITTAL IMAGES AND THEREFORE MAY BE RELATED TO SOFT TISSUE MUSCULATURE TISSUE RATHER THAN SUBCUTANEOUS PATHOLOGIC NODULE . THIS COULD BE CORRELATED WITH ULTRASOUND. BLADDER IS POORLY VISUALIZED AND APPEARS TO BE DECOMPRESSED CORRELATE CLINICALLY..
== END | disposition home or self-care (01) ==
LOC: RADCTMAIN 10:23
PROVIDERS: ATTEND Radiology Radiation Oncology
DX: C54.1 Malignant neoplasm of endometrium (principal); M79.89 Other specified soft tissue disorders
CPT/HCPCS: 72193; Q9967

== ENCOUNTER → 2018-01-06 | Outpatient (CLI) | payer MEDICARE, OTHER ==
--- NOTE | 2018-01-06 13:54 | PE ---
EXAMINATION TYPE: PET CT fusion skull to thigh DATE OF EXAM: 01/06/2018 COMPARISON: CT pelvis February 17, 2017 6 HISTORY: Endometrial cancer of uterus. TECHNIQUE: Following the intravenous administration of 12.05 mCi of F-18 FDG, whole body images are performed from the skull base to the midthigh. Images are reviewed on the computer in the coronal, a xial, and sagittal planes. Reconstructed rotating images are created on independent workstation and reviewed on the computer. A noncontrast CT is performed in conjunction with the PET scan. SCAN: Initial Scan FINDINGS: Exam noted suboptimal due to artifact related to patient's large body habitus. SKULL BASE AND NECK: No convincing evidence of suspicious hypermetabolic uptake. CHEST, MEDIASTINUM, AND HILAR REGION: No definitive areas of suspicious hypermetabolic uptake. ABDOMEN AND PELVIS: Normal excretion is present in the kidneys and the bladder. No suspicious metabol ic uptake identified in the uterus. OSSEOUS STRUCTURES: No convincing evidence of suspicious hypermetabolic uptake. OTHER CT: Mild cardiomegaly is present. Cholecystectomy clips are noted. There is ventral wall hernia containing fat extending to left of midline axial image 185 extending in feriorly containing fat as well as ill-defined fluid and some calcification. This is not significantl y changed from prior CT. Overlying pannus is redemonstrated. There is heterogeneous uterus with persistent adjacent anterior low dense rounded areas axial image 1 88 this is unchanged from prior CT and ultrasound favoring ovarian cystic lesions. There is facet arthropathy in the lower lumbar spine. There is multilevel spurring in the thoracolumb ar spine. IMPRESSION: Suboptimal study, no areas of suspicious hypermetabolic uptake clearly seen to suggest me tastatic disease or active malignancy however. p
== END ==
LOC: RADPETMAIN 07:43
PROVIDERS: ATTEND Obstetrics & Gynecology
DX: C54.1 Malignant neoplasm of endometrium (principal)
CPT/HCPCS: 78815; A9552

== ENCOUNTER 2021-05-03 20:54 | Inpatient (IN) | payer MEDICARE, OTHER ==
[2021-05-03 22:11] LABS: Anisocytosis Slight; Basophils % (A) 1 %; Eosinophils # (A) 0.1 k/uL (0-0.7); Eosinophils % (A) 2 %; HCT 22.6 % (34.0-46.0); Hypochromasia Marked; Lymphocytes # (A) 1.1 k/uL (1.0-4.8); Lymphocytes % (A) 43 %; MCH 29.6 pg (25.0-35.0); MCHC 30.8 g/dL (31.0-37.0); Mean Platelet Volume 8.1; Monocytes # (A) 0.2 k/uL (0-1.0); Monocytes % (A) 6 %; Neutrophils # (A) 1.1 k/uL (1.3-7.7); Neutrophils % (A) 44 %; Platelet Count 277 k/uL (150-450); Poikilocytosis Moderate; RBC 2.35 m/uL (3.80-5.40); RDW 16.8 % (11.5-15.5); WBC 2.5 k/uL (3.8-10.6)
[2021-05-03 22:23] LABS: ALT 10 U/L (4-34); AST 33 U/L (14-36); African American GFR (CKD) >90 (>60 ml/min/1.73 sqM); Albumin 3.7 g/dL (3.5-5.0); Alkaline Phosphatase 141 U/L (38-126); Anion Gap 11 mmol/L; Blood Urea Nitrogen 15 mg/dL (7-17); Carbon Dioxide 20 mmol/L (22-30); Chloride 107 mmol/L (98-107); Glucose 132 mg/dL (74-99); Non-African American GFR(CKD) 83 (>60 ml/min/1.73 sqM); Potassium 4.2 mmol/L (3.5-5.1); Sodium 138 mmol/L (137-145); Total Bilirubin 0.5 mg/dL (0.2-1.3); Total Protein 6.5 g/dL (6.3-8.2)
[2021-05-03 22:26] LABS: HGB 6.9 gm/dL (11.4-16.0)
[2021-05-03 22:30] LABS: Partial Thromboplastin Time 26.7 sec (22.0-30.0); Prothrombin Time 10.7 sec (9.0-12.0)
--- NOTE | 2021-05-03 23:42 | US ---
EXAMINATION TYPE: US pelvic complete DATE OF EXAM: 05/03/2021 COMPARISON: Pelvis US 2017 CLINICAL HISTORY: vaginal bleeding. Vaginal bleeding since February per patient. Patient states she h as a hx of ovarian ca. Patient denies any surgical hx. TECHNIQUE: Transabdominal (TA). PATIENT REFUSED TV EXAM EXAM MEASUREMENTS: Uterus: 8.1 x 3.3 x 6.0 cm Endometrial Stripe: Unable to accurately assess for measurement 1. Uterus: Anteverted Limited visualization 2. Endometrium: Unable to accurately assess 3. Right Ovary: Not seen; mass areas seen in the right adnexa. 4. Left Ovary: Not seen 5. Bilateral Adnexa: Within the right adnexa there appear to be 2 large complex areas, previously se en in 2017. These areas do not appear to have a clear connecting point to each other. (1) - 5.0 x 4.4 x 4.1 cm, (2) - 5.3 x 4.9 x 4.5 cm. 6. Posterior cul-de-sac: Appears wnl IMPRESSION: There is a bilobed mass in the pelvis which is also present on the old CT scan of 02/17/2017 and not significantly changed in size. This suggests benign disease. This is contiguous with the uterine fund us and could be exophytic fibroids. Ovaries not seen. No free fluid.
--- NOTE | 2021-05-04 02:52 | ED ---
General Adult HPI - General Source: patient, EMS, RN notes reviewed Mode of arrival: EMS <Christal Hu - Last Filed: 05/04/21 02:49> <Luis Irving - Last Filed: 05/04/21 05:48> - General Chief complaint: Recheck/Abnormal Lab/Rx Stated complaint: low hemoglobin - History of Present Illness Initial comments: 60-year-old female past history of endometrial and ovarian cancer, hemorrhagic cystitis presents emergency Department with reported vaginal bleeding. States that she's had bleeding since February with heavy clot formation. She saw her primary care physician who referred her to [facility]. She did see the [facility] in office however they refused to do a physical exam as she did not have her guarding present. Patient does have a public guardian. She chronically resides at [facility]. Today she laboratory studies completed which demonstrated a hemoglobin of 6.3. She denies any new complaints. Because of the low lab values she was sent into the emergency room for transfusion. She denies any lightheadedness or dizziness. No abdominal pain. Review of the patient's history demonstrates radiation due to ovarian cancer for which the patient subsequently developed hemorrhagic cystitis. She denies dysuria. No fevers. No other alleviating, precipitating or modifying factors (Christal Hu) - Related Data Home Medications Medication Instructions Recorded Confirmed Acetaminophen Tab [Tylenol] 650 mg PO Q4H PRN 05/04/16 05/03/21 Artificial Tears-Hypromellose 1 drop BOTH EYES QID 05/04/16 05/03/21 [Artificial Tear Drops] Cholecalciferol [Vitamin D3 (25 1,000 unit PO DAILY@79905/04/16 05/03/21 Mcg = 1000 Iu)] DULoxetine HCL [Cymbalta] 60 mg PO DAILY@79905/04/16 05/03/21 Famotidine [Pepcid] 20 mg PO DAILY@79905/04/16 05/03/21 Levothyroxine Sodium [Synthroid] 50 mcg PO DAILY@79905/04/16 05/03/21 Loperamide HCl [Imodium A-D] 4 mg PO QID PRN 05/04/16 05/03/21 Magnesium Hydroxide [Milk of 2,400 mg PO DAILY PRN 05/04/16 05/03/21 Magnesia] Multivitamins, Thera [Multivitamin 1 tab PO DAILY@0800 05/04/16 05/03/21 (formulary)] Na Phos,M-B/Na Phos,Di-Ba [Fleet 133 ml RECTAL DAILY PRN 05/04/16 05/03/21 Adult] Potassium Chloride [K-Tab ER] 10 meq PO DAILY@1700 05/04/16 05/03/21 bisacodyL [Dulcolax] 10 mg RECTAL DAILY PRN 05/04/16 05/03/21 gemfibroziL [Lopid] 600 mg PO BID@0800,1700 05/04/16 05/03/21 Brinzolamide/Brimonidine Tart 2 drop BOTH EYES BID@0800,1700 05/03/21 05/03/21 [Simbrinza 1%-0.2% Eye Drops] Latanoprost [Xalatan 0.005%] 1 drop BOTH EYES HS 05/03/21 05/03/21 Loratadine 10 mg PO DAILY PRN 05/03/21 05/03/21 Menthol [Biofreeze] 1 applic TOPICAL DAILY PRN 05/03/21 05/03/21 Olopatadine HCl [Patanol 0.1%] 1 drop BOTH EYES BID PRN 05/03/21 05/03/21 Topiramate [Topamax] 100 mg PO DAILY@1700 05/03/21 05/03/21 Vit C/E/Zn/Coppr/Lutein/Zeaxan 1 cap PO BID@0800,1700 05/03/21 05/03/21 [Preservision Areds 2 Softgel] guaiFENesin-DM 100-10MG/5ML 10 ml PO Q6H PRN 05/03/21 05/03/21 [Robitussin DM] Allergies Allergy/AdvReac Type Severity Reaction Status Date / Time kiwi Allergy Unknown Verified 05/03/21 22:28 pineapple Allergy Unknown Verified 05/03/21 22:28 Review of Systems ROS Other: All systems not noted in ROS Statement are negative. <Christal Hu - Last Filed: 05/04/21 02:49> ROS Other: All systems not noted in ROS Statement are negative. <Luis Irving - Last Filed: 05/04/21 05:48> ROS Statement: Those systems with pertinent positive or pertinent negative responses have been documented in the HPI. Past Medical History Past Medical History: Blood Disorder, Cancer, Chest Pain / Angina, Eye Disorder, GERD/Reflux, Hyperlipidemia, Hypertension, Thyroid Disorder Additional Past Medical History / Comment(s): atherosclerotic heart disease, HIATAL HERNIA, hypothyroidism History of Any Multi-Drug Resistant Organisms: None Reported Past Surgical History: Tubal Ligation Additional Past Surgical History / Comment(s): 05/06/16 cystoscopy with bladder bx, evacuation of clots, fulguration of bleeder, ? tonsils-pt not sure, cardiac cath-negative. Past Anesthesia/Blood Transfusion Reactions: No Reported Reaction Additional Past Anesthesia/Blood Transfusion Reaction / Comment(s): Recent blood transfusions without reaction 04/2016 Past Psychological History: Anxiety, Bipolar, Depression Smoking Status: Never smoker Past Alcohol Use History: None Reported Past Drug Use History: None Reported - Past Family History Father Family Medical History: Cancer Additional Family Medical History / Comment(s): Father of stomach cancer at the age of 72 yrs. Mother Family Medical History: Respiratory Disorder Additional Family Medical History / Comment(s): Mother of "collapsed lungs" at the age of 72 yrs. <Christal Hu - Last Filed: 05/04/21 02:49> Course Vital Signs 05/03/21 05/04/21 05/04/21 21:00 00:38 01:41 Temperature 98.0 F 98.0 F Pulse Rate 73 70 69 Respiratory 18 18 16 Rate Blood Pressure 116/54 125/65 126/74 O2 Sat by Pulse 99 100 100 Oximetry 05/04/21 05/04/21 05/04/21 01:51 02:21 04:35 Temperature 98.0 F 98.4 F 98.7 F Pulse Rate 70 71 71 Respiratory 18 18 17 Rate Blood Pressure 133/79 135/74 127/61 O2 Sat by Pulse 100 99 100 Oximetry Medical Decision Making - Lab Data Result diagrams: 05/03/21 21:50 05/03/21 21:50 <Christal Hu - Last Filed: 05/04/21 02:49> - Lab Data Result diagrams: 05/03/21 21:50 05/03/21 21:50 <Luis Irving Riley - Last Filed: 05/04/21 05:48> - Medical Decision Making Upon arrival patient was placed into room 22. Thorough history and physical exam is performed. Laboratory studies from earlier in the day are reviewed and demonstrated hemoglobin of 6.3. Repeat laboratory studies are performed to obtain a type and screen. Hemoglobin at this time is 6.9. Pelvic exam is performed and demonstrates no vaginal bleeding. Concern for hemorrhagic cystitis however patient is refusing straight cath. Patient will be transfused one unit at this time. Recommended admission for urology consultation however the patient is refusing. Risks of leaving without further workup discussed the patient. Patient understood and is requesting discharge back to [facility]. States that she will follow up in office with urology as this has been a chronic issue for the past 2 months. She is instructed to return for any new or worsening symptoms. He does have repeat laboratory studies done in 2 days to ensure improvement in her hemoglobin. Patient understood and was discharged home in stable condition (Christal Hu) [facility] however upon EMS arrival patient requested that she be admitted. Patient was evaluated at the bedside states that she change her mind like to be admitted. Patient allegedly had a conversation with Dr. Hu earlier about being discharged after blood transfusion. When I saw her at the bedside she reports that she feels fine. She denies any obvious bleeding. According Dr. Hu's documentation no negative pelvic exam. There is documentation from 05/27/2016 that patient had bleeding in the bladder that required surgical intervention. According to this note there was a findings of radiation cystitis with active bleeder in the right posterior bladder wall. Case is discussed with Dr. Garcia at 5:30 AM does not feel like the patient is to be admitted to medicine that she should be admitted to gynecology for perhaps pelvic bleeding. She had a negative pelvic ultrasound and documentation from Dr. Hu that pelvic exam was unremarkable for any bleeding. Patient initially refused straight cath urine. We will need a urinalysis in order to make further decisions. Patient agreed to straight catheterization of urine which is grossly bloody. Discussed Dr. Garcia who is willing to accept patients care. urology will be on consult. Chart review shows that in May 2016 she had a operative intervention to treat a bleeding vessel and the bladder that required fulguration by urology. (Luis Irving) - Lab Data Lab Results 05/03/21 05/03/21 05/03/21 Range/Units 21:50 21:50 21:50 WBC 2.5 L (3.8-10.6) k/uL RBC 2.35 L (3.80-5.40) m/uL Hgb 6.9 L* (11.4-16.0) gm/dL Hct 22.6 L (34.0-46.0) % MCV 96.0 (80.0-100.0) fL MCH 29.6 (25.0-35.0) pg MCHC 30.8 L (31.0-37.0) g/dL RDW 16.8 H (11.5-15.5) % Plt Count 277 (150-450) k/uL MPV 8.1 Neutrophils % 44 % Lymphocytes % 43 % Monocytes % 6 % Eosinophils % 2 % Basophils % 1 % Neutrophils # 1.1 L (1.3-7.7) k/uL Lymphocytes # 1.1 (1.0-4.8) k/uL Monocytes # 0.2 (0-1.0) k/uL Eosinophils # 0.1 (0-0.7) k/uL Basophils # 0.0 (0-0.2) k/uL Hypochromasia Marked Poikilocytosis Moderate Anisocytosis Slight PT 10.7 (9.0-12.0) sec INR 1.0 (<1.2) APTT 26.7 (22.0-30.0) sec Sodium 138 (137-145) mmol/L Potassium 4.2 (3.5-5.1) mmol/L Chloride 107 (98-107) mmol/L Carbon Dioxide 20 L (22-30) mmol/L Anion Gap 11 mmol/L BUN 15 (7-17) mg/dL Creatinine 0.77 (0.52-1.04) mg/dL Est GFR (CKD-EPI)AfAm >90 (>60 ml/min/1.73 sqM) Est GFR (CKD-EPI)NonAf 83 (>60 ml/min/1.73 sqM) Glucose 132 H (74-99) mg/dL Calcium 9.0 (8.4-10.2) mg/dL Total Bilirubin 0.5 (0.2-1.3) mg/dL AST 33 (14-36) U/L ALT 10 (4-34) U/L Alkaline Phosphatase 141 H (38-126) U/L Total Protein 6.5 (6.3-8.2) g/dL Albumin 3.7 (3.5-5.0) g/dL Blood Type Blood Type Recheck Bld Type Recheck Status Antibody Screen Crossmatch Spec Expiration Date 05/03/21 Range/Units 21:50 WBC (3.8-10.6) k/uL RBC (3.80-5.40) m/uL Hgb (11.4-16.0) gm/dL Hct (34.0-46.0) % MCV (80.0-100.0) fL MCH (25.0-35.0) pg MCHC (31.0-37.0) g/dL RDW (11.5-15.5) % Plt Count (150-450) k/uL MPV Neutrophils % % Lymphocytes % % Monocytes % % Eosinophils % % Basophils % % Neutrophils # (1.3-7.7) k/uL Lymphocytes # (1.0-4.8) k/uL Monocytes # (0-1.0) k/uL Eosinophils # (0-0.7) k/uL Basophils # (0-0.2) k/uL Hypochromasia Poikilocytosis Anisocytosis PT (9.0-12.0) sec INR (<1.2) APTT (22.0-30.0) sec Sodium (137-145) mmol/L Potassium (3.5-5.1) mmol/L Chloride (98-107) mmol/L Carbon Dioxide (22-30) mmol/L Anion Gap mmol/L BUN (7-17) mg/dL Creatinine (0.52-1.04) mg/dL Est GFR (CKD-EPI)AfAm (>60 ml/min/1.73 sqM) Est GFR (CKD-EPI)NonAf (>60 ml/min/1.73 sqM) Glucose (74-99) mg/dL Calcium (8.4-10.2) mg/dL Total Bilirubin (0.2-1.3) mg/dL AST (14-36) U/L ALT (4-34) U/L Alkaline Phosphatase (38-126) U/L Total Protein (6.3-8.2) g/dL Albumin (3.5-5.0) g/dL Blood Type A Positive Blood Type Recheck A Pos Bld Type Recheck Status No Antibody Screen NEGATIVE Crossmatch See Detail Spec Expiration Date 05/06/20212349 Disposition Is patient prescribed a controlled substance at d/c from ED?: No Time of Disposition: 02:52 <Christal Hu - Last Filed: 05/04/21 02:49> <Luis Irving - Last Filed: 05/04/21 05:48> Clinical Impression: Anemia, Irradiation cystitis with hematuria Disposition: ADMITTED IP TO THIS HOSP Condition: Undetermined
[2021-05-04] MEDS ORDERED: NALOXONE 0.4 MG/ML 1 ML VIAL IV PRN (05:16)
[2021-05-04 06:55] LABS: Bacteria,Urine Many /hpf; WBC,Urine 47 /hpf (0-5)
[2021-05-04 07:07] LABS: Appearance,Urine Turbid (Clear); Color,Urine Dark Brown
[2021-05-04 07:08] LABS: RBC,Urine >182 /hpf (0-5)
[2021-05-04 07:31] LABS: Anisocytosis Slight; Basophils % (A) 1 %; Eosinophils # (A) 0.1 k/uL (0-0.7); Eosinophils % (A) 2 %; HCT 26.4 % (34.0-46.0); HGB 7.9 gm/dL (11.4-16.0); Hypochromasia Marked; Lymphocytes % (A) 36 %; MCH 28.5 pg (25.0-35.0); MCHC 29.8 g/dL (31.0-37.0); MCV 95.8 fL (80.0-100.0); Monocytes # (A) 0.2 k/uL (0-1.0); Monocytes % (A) 6 %; Neutrophils # (A) 1.4 k/uL (1.3-7.7); Neutrophils % (A) 52 %; Platelet Count 265 k/uL (150-450); Poikilocytosis Marked; RBC 2.76 m/uL (3.80-5.40); RDW 16.4 % (11.5-15.5); WBC 2.7 k/uL (3.8-10.6)
[2021-05-04] MEDS: SODIUM CHLORIDE 0.9% 1,000 ML IV SCH ×2 (07:35→13:46)
--- NOTE | 2021-05-04 07:42 | P.GSCN ---
History of Present Illness Consult date: 05/04/21 History of present illness: 60-year-old female, mentally handicapped, who resides at [facility], has had a several week history of gross hematuria. She has a known history of ovarian cancer treated with surgery and radiation. As a history of radiation cystitis. In 2016 did cystoscopy, evacuation of clot and fulguration of bleeding. She states that she's been bleeding since February. He has not had any treatment. Her urine shows 180 red cells 47 white cells. Her hemoglobin was 6.9. For this reason we are asked see the patient. She can give me no other urologic history. She has not had any blood thinners. Review of Systems ROS unobtainable: due to mental status Past Medical History Past Medical History: Blood Disorder, Cancer, Chest Pain / Angina, Eye Disorder, GERD/Reflux, Hyperlipidemia, Hypertension, Thyroid Disorder Additional Past Medical History / Comment(s): atherosclerotic heart disease, HIATAL HERNIA, hypothyroidism History of Any Multi-Drug Resistant Organisms: None Reported Past Surgical History: Tubal Ligation Additional Past Surgical History / Comment(s): 05/06/16 cystoscopy with bladder bx, evacuation of clots, fulguration of bleeder, ? tonsils-pt not sure, cardiac cath-negative. Past Anesthesia/Blood Transfusion Reactions: No Reported Reaction Additional Past Anesthesia/Blood Transfusion Reaction / Comm: Recent blood transfusions without reaction 04/2016 Past Psychological History: Anxiety, Bipolar, Depression Smoking Status: Never smoker Past Alcohol Use History: None Reported Past Drug Use History: None Reported - Past Family History Father Family Medical History: Cancer Additional Family Medical History / Comment(s): Father of stomach cancer at the age of 72 yrs. Mother Family Medical History: Respiratory Disorder Additional Family Medical History / Comment(s): Mother of "collapsed lungs" at the age of 72 yrs. Medications and Allergies Home Medications Medication Instructions Recorded Confirmed Type Acetaminophen Tab [Tylenol] 650 mg PO Q4H PRN 05/04/16 05/03/21 History Artificial Tears-Hypromellose 1 drop BOTH EYES QID 05/04/16 05/03/21 History [Artificial Tear Drops] Cholecalciferol [Vitamin D3 (25 1,000 unit PO DAILY@0800 05/04/16 05/03/21 History Mcg = 1000 Iu)] DULoxetine HCL [Cymbalta] 60 mg PO DAILY@0800 05/04/16 05/03/21 History Famotidine [Pepcid] 20 mg PO DAILY@0800 05/04/16 05/03/21 History Levothyroxine Sodium [Synthroid] 50 mcg PO DAILY@0800 05/04/16 05/03/21 History Loperamide HCl [Imodium A-D] 4 mg PO QID PRN 05/04/16 05/03/21 History Magnesium Hydroxide [Milk of 2,400 mg PO DAILY PRN 05/04/16 05/03/21 History Magnesia] Multivitamins, Thera [Multivitamin 1 tab PO DAILY@0800 05/04/16 05/03/21 History (formulary)] Na Phos,M-B/Na Phos,Di-Ba [Fleet 133 ml RECTAL DAILY PRN 05/04/16 05/03/21 History Adult] Potassium Chloride [K-Tab ER] 10 meq PO DAILY@1700 05/04/16 05/03/21 History bisacodyL [Dulcolax] 10 mg RECTAL DAILY PRN 05/04/16 05/03/21 History gemfibroziL [Lopid] 600 mg PO BID@0800,1700 05/04/16 05/03/21 History Brinzolamide/Brimonidine Tart 2 drop BOTH EYES BID@0800,1700 05/03/21 05/03/21 History [Simbrinza 1%-0.2% Eye Drops] Latanoprost [Xalatan 0.005%] 1 drop BOTH EYES HS 05/03/21 05/03/21 History Loratadine 10 mg PO DAILY PRN 05/03/21 05/03/21 History Menthol [Biofreeze] 1 applic TOPICAL DAILY PRN 05/03/21 05/03/21 History Olopatadine HCl [Patanol 0.1%] 1 drop BOTH EYES BID PRN 05/03/21 05/03/21 History Topiramate [Topamax] 100 mg PO DAILY@1700 05/03/21 05/03/21 History Vit C/E/Zn/Coppr/Lutein/Zeaxan 1 cap PO BID@0800,1700 05/03/21 05/03/21 History [Preservision Areds 2 Softgel] guaiFENesin-DM 100-10MG/5ML 10 ml PO Q6H PRN 05/03/21 05/03/21 History [Robitussin DM] Allergies Allergy/AdvReac Type Severity Reaction Status Date / Time kiwi Allergy Unknown Verified 05/03/21 22:28 pineapple Allergy Unknown Verified 05/03/21 22:28 Surgical - Exam Vital Signs Temp Pulse Resp BP Pulse Ox 98.0 F 73 18 116/54 99 05/03/21 21:00 05/03/21 21:00 05/03/21 21:00 05/03/21 21:00 05/03/21 21:00 - General obese - Eyes PERRL - ENT no hearing loss - Respiratory normal expansion, normal respiratory effort - Cardiovascular Rhythm: regular - Abdomen Abdomen: soft, non tender - Psychiatric oriented to person, oriented to place Results - Labs 05/04/21 07:13 05/03/21 21:50 Abnormal Lab Results - Last 24 Hours (Table) 05/03/21 05/03/21 05/03/21 Range/Units 21:50 21:50 21:50 WBC 2.5 L (3.8-10.6) k/uL RBC 2.35 L (3.80-5.40) m/uL Hgb 6.9 L* (11.4-16.0) gm/dL Hct 22.6 L (34.0-46.0) % MCHC 30.8 L (31.0-37.0) g/dL RDW 16.8 H (11.5-15.5) % Neutrophils # 1.1 L (1.3-7.7) k/uL Carbon Dioxide 20 L (22-30) mmol/L Glucose 132 H (74-99) mg/dL Alkaline Phosphatase 141 H (38-126) U/L Urine Appearance (Clear) Urine RBC (0-5) /hpf Urine WBC (0-5) /hpf Urine Bacteria (None) /hpf Crossmatch See Detail 05/04/21 05/04/21 Range/Units 05:39 07:13 WBC 2.7 L (3.8-10.6) k/uL RBC 2.76 L (3.80-5.40) m/uL Hgb 7.9 L (11.4-16.0) gm/dL Hct 26.4 L (34.0-46.0) % MCHC 29.8 L (31.0-37.0) g/dL RDW 16.4 H (11.5-15.5) % Neutrophils # (1.3-7.7) k/uL Carbon Dioxide (22-30) mmol/L Glucose (74-99) mg/dL Alkaline Phosphatase (38-126) U/L Urine Appearance Turbid H (Clear) Urine RBC >182 H (0-5) /hpf Urine WBC 47 H (0-5) /hpf Urine Bacteria Many H (None) /hpf Crossmatch Diabetes panel 05/03/21 Range/Units 21:50 Sodium 138 (137-145) mmol/L Potassium 4.2 (3.5-5.1) mmol/L Chloride 107 (98-107) mmol/L Carbon Dioxide 20 L (22-30) mmol/L BUN 15 (7-17) mg/dL Creatinine 0.77 (0.52-1.04) mg/dL Glucose 132 H (74-99) mg/dL Calcium 9.0 (8.4-10.2) mg/dL AST 33 (14-36) U/L ALT 10 (4-34) U/L Alkaline Phosphatase 141 H (38-126) U/L Total Protein 6.5 (6.3-8.2) g/dL Albumin 3.7 (3.5-5.0) g/dL Calcium panel 05/03/21 Range/Units 21:50 Calcium 9.0 (8.4-10.2) mg/dL Albumin 3.7 (3.5-5.0) g/dL Pituitary panel 05/03/21 Range/Units 21:50 Sodium 138 (137-145) mmol/L Potassium 4.2 (3.5-5.1) mmol/L Chloride 107 (98-107) mmol/L Carbon Dioxide 20 L (22-30) mmol/L BUN 15 (7-17) mg/dL Creatinine 0.77 (0.52-1.04) mg/dL Glucose 132 H (74-99) mg/dL Calcium 9.0 (8.4-10.2) mg/dL Adrenal panel 05/03/21 Range/Units 21:50 Sodium 138 (137-145) mmol/L Potassium 4.2 (3.5-5.1) mmol/L Chloride 107 (98-107) mmol/L Carbon Dioxide 20 L (22-30) mmol/L BUN 15 (7-17) mg/dL Creatinine 0.77 (0.52-1.04) mg/dL Glucose 132 H (74-99) mg/dL Calcium 9.0 (8.4-10.2) mg/dL Total Bilirubin 0.5 (0.2-1.3) mg/dL AST 33 (14-36) U/L ALT 10 (4-34) U/L Alkaline Phosphatase 141 H (38-126) U/L Total Protein 6.5 (6.3-8.2) g/dL Albumin 3.7 (3.5-5.0) g/dL - Imaging US - pelvic: report reviewed, image reviewed Assessment and Plan Assessment: Impression: Persistent gross hematuria with secondary anemia. History of hemorrhagic cystitis. History of ovarian cancer treated with surgery and radiation. Recommendations: I will start the patient on antibiotics. She undergo cystoscopy and evacuation of clot with fulguration of any obvious arterial bleeding.
[2021-05-04] MEDS: DEXTROSE 5%-0.45% NACL 1,000 ML IV SCH ×2 (08:10→21:41)
[2021-05-04] MEDS ORDERED: guaiFENesin-DM 100-10MG/5ML 10 ML CUP PO PRN (10:17)
[2021-05-04] MEDS ORDERED: bisacodyL 10 MG SUPP RECTAL PRN (10:17)
[2021-05-04] MEDS ORDERED: METHYL SALICYLATE/MENTHOL CREAM 5 OZ TOPICAL PRN (10:17)
[2021-05-04] MEDS ORDERED: LOPERAMIDE 2 MG CAP PO PRN (10:17)
[2021-05-04] MEDS ORDERED: NA PHOS,M-B/NA PHOS,DI-BA 133 ML ENEMA RECTAL PRN (10:17)
[2021-05-04] MEDS ORDERED: KETOTIFEN 0.025% OPHTH DROPS 5 ML BTL BOTH EYES PRN (10:17)
[2021-05-04] MEDS ORDERED: ACETAMINOPHEN TAB 325 MG TAB PO PRN (10:17)
[2021-05-04] MEDS: FENOFIBRATE 160 MG TAB PO SCH (11:29)
[2021-05-04] MEDS: LEVOTHYROXINE 50 MCG TAB PO SCH (11:29)
[2021-05-04] MEDS: FAMOTIDINE 20 MG TAB PO SCH (11:29)
[2021-05-04] MEDS: CHOLECALCIFEROL 25 MCG (1000 IU) TABLET PO SCH (11:29)
[2021-05-04] MEDS: VIT A,C & E-LUTEIN-MINERALS 1 EACH TAB PO SCH (11:29)
[2021-05-04] MEDS: DORZOLAMIDE HCL 2% DROPS 10 ML BTL BOTH EYES SCH ×2 (11:29→17:30)
[2021-05-04] MEDS: ARTIFICIAL TEARS-HYPROMELLOSE DROPS 15 ML BTL BOTH EYES SCH ×3 (13:48→21:46)
[2021-05-04] MEDS ORDERED: IV FLUID CONTINUATION 1,000 ML IV ONE (14:02)
[2021-05-04] MEDS ORDERED: ONDANSETRON 4 MG/2 ML VIAL ONE (14:05)
[2021-05-04] MEDS ORDERED: ONDANSETRON 4 MG/2 ML VIAL IVP ONE (14:05)
[2021-05-04] MEDS ORDERED: DEXAMETHASONE SOD PHOSPHATE 4 MG/ML 1 ML VIAL IVP ONE (14:06)
[2021-05-04] MEDS ORDERED: fentaNYL (PF) 50 MCG/ML 2 ML AMP ONE (14:37)
[2021-05-04] MEDS ORDERED: PROPOFOL 10 MG/ML 20 ML VIAL IV ONE (14:37)
[2021-05-04] MEDS ORDERED: MIDAZOLAM 2 MG/2 ML VIAL ONE (14:37)
[2021-05-04] MEDS ORDERED: LIDOCAINE 1% INJ 10MG/ML (20 ML MDV) ONE (14:37)
--- NOTE | 2021-05-04 15:29 | P.OP ---
Date of Procedure: 05/04/21 Preoperative Diagnosis: Recurrent gross hematuria, history of radiation cystitis, secondary anemia Postoperative Diagnosis: Same Procedure(s) Performed: Cystoscopy, evacuation of clot, fulguration of radiation cystitis Anesthesia: KRYSTINA Surgeon: Zoran Rizzo Estimated Blood Loss (ml): 10 Pathology: none sent Condition: stable Disposition: PACU Indications for Procedure: The patient is 60. She lives in [facility]. She has a history of radiation cystitis due to radiation for [employer] cancer years ago. did cystoscopy with fulguration 3 years ago for the same problem. She comes in with a hemoglobin of 6.9 and recurrent gross hematuria for the last 6 weeks. Description of Procedure: Patient is brought to the operating suite. She is given a general anesthesia. She's placed lithotomy position with sterile prep and drape. Cystoscopy 25-Wallisian sheath and Foroblique lens is performed. The bladder is evacuated some old clot. I inspect the bladder. It is normal other than multiple telangiectatic vessels secondary to radiation cystitis. There is an active bleeding vessel on the left lateral wall. This is cauterized. I then cauterized multiple little massive veins that are potentially bleeders in the future. Then the procedure is no active bleeding. The bladder strain the patient's awake and returned recovery in good condition she tolerated procedure well Impression recurrent gross hematuria due to radiation cystitis plan of the patient will be observed and when she is urinating adequately she'll be discharged home. End of dictation
[2021-05-04] MEDS ORDERED: POTASSIUM CHLORIDE ER 10 MEQ TAB.ER.PRT PO SCH (17:00)
[2021-05-04] MEDS ORDERED: TOPIRAMATE 100 MG TAB PO SCH (17:00)
[2021-05-04 17:18] LABS: Anisocytosis Slight; Basophils % (A) 0 %; Eosinophils % (A) 1 %; HGB 8.5 gm/dL (11.4-16.0); Hypochromasia Marked; Lymphocytes # (A) 0.6 k/uL (1.0-4.8); Lymphocytes % (A) 19 %; MCH 28.8 pg (25.0-35.0); MCHC 30.4 g/dL (31.0-37.0); Mean Platelet Volume 8.8; Monocytes # (A) 0.1 k/uL (0-1.0); Monocytes % (A) 1 %; Neutrophils # (A) 2.6 k/uL (1.3-7.7); Neutrophils % (A) 77 %; Platelet Count 271 k/uL (150-450); Poikilocytosis Marked; RBC 2.94 m/uL (3.80-5.40); RDW 16.5 % (11.5-15.5); WBC 3.4 k/uL (3.8-10.6)
[2021-05-04] MEDS: BRIMONIDINE TARTRATE 0.2% DROPS 5 ML BTL BOTH EYES SCH (17:29)
[2021-05-04] MEDS ORDERED: LATANOPROST 0.005% OPHTH DROPS 2.5 ML BTL BOTH EYES SCH (21:00)
--- NOTE | 2021-05-04 22:21 | P.HPIM ---
History of Present Illness H&P Date: 05/04/21 Chief Complaint: Anemia This is a 60-year-old patient who follows with Dr. García of the [facility]. Extensive medical history. GERD, hyperlipidemia, hypertension, hypothyroid, hi story of endometrial ovarian cancer with radiation, hemorrhagic cystitis following radiation, fragile X chromosomal disorder, patient has a legal guardian, intellectual disability, hiatal hernia, arthritis lower back, chronic constipation, vitamin D deficiency, bipolar. Patient does use a walker to get out of bed and to a wheelchair. Patient is able to answer simple questions. She is reported to have intermittent hematuria for quite some time. In 2017 had a cystoscopy by Dr. Santana. Clots were removed. Fulguration of bleeding was carried out. Review of systems: GEN.: Tired EYES: None HEENT: None NECK: None RESPIRATORY: None CARDIOVASCULAR: None GASTROINTESTINAL: None GENITOURINARY: [Bleeding MUSCULOSKELETAL: [Some joint pains LYMPHATICS: None HEMATOLOGICAL: None PSYCHIATRY: None NEUROLOGICAL: Does use a walker to transfer intellectual disability Past medical history to include: GERD, hyperlipidemia, hypertension, endometrial ovarian cancer with radiation treatment, hemorrhagic cystitis from radiation, fragile X chromosomal disorder, intellectual disability, hiatal hernia, arthritis, constipation, vitamin D deficiency, chronic medical debility Social history: Lives at [facility]. Has a legal guardian. Does use a walker to transfer. Family history: Father of stomach cancer. Physical examination: VITAL SIGNS: 98.7, 68, 18, 122/64, 100% room air GENERAL: BMI 53.3, laying in bed, awake,. EYES: Pupils equal. Conjunctiva palel. HEENT: External appearance of nose and ears normal, oral cavity grossly normal. NECK: JVD not raised; masses not palpable. HEART: First and second heart sounds are normal; no edema. LUNGS: Respiratory rate normal; distant breath sounds. ABDOMEN: Soft, nontender, liver spleen not palpable, no masses palpable. PSYCH: [Patient able to answer simple questions. Knows that she is admitted to the hospital. Knows the year.. MUSCULOSKELETAL:No Clubbing/cyanosis;muscles-grossly intact NEUROLOGICAL: [Cranial nerves grossly intact; no facial asymmetry, does move upper extremity better than lower extremity. LYMPHATICS: No lymph nodes palpable in the axilla and neck INVESTIGATIONS, reviewed in the clinical context: February 8: White count 2.7 hemoglobin 7.9 Admission labs: Hemoglobin 6.9 potassium 4.2 creatinine 0.7 UA positive for RBC more than 182 Coronavirus [PCR]: Not detected Assessment and plan: -Acute blood loss anemia from recurrent hematuria Patient received 1 unit of blood -Radiation cystitis from previous radiation treatment with the recurrent persistent bleeding Patient due to go down for cystoscopy with possible cauterization sedated this afternoon -Morbid obesity BMI 53.3 -GERD Pepcid -Hyperlipidemia Lopid 600 mg twice a day -Hypothyroid Synthroid 50 g daily -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 Fall precautions -Bipolar Cymbalta 60 mg daily -Patient has a legal guardian Patient received a unit of blood. Home medications resumed. Patient related today go down for cystoscopy and possible cauterization. Past Medical History Past Medical History: Blood Disorder, Cancer, Chest Pain / Angina, Eye Disorder, GERD/Reflux, Hyperlipidemia, Hypertension, Thyroid Disorder Additional Past Medical History / Comment(s): atherosclerotic heart disease, HIATAL HERNIA, hypothyroidism History of Any Multi-Drug Resistant Organisms: None Reported Past Surgical History: Tubal Ligation Additional Past Surgical History / Comment(s): 05/06/16 cystoscopy with bladder bx, evacuation of clots, fulguration of bleeder, ? tonsils-pt not sure, cardiac cath-negative. Past Anesthesia/Blood Transfusion Reactions: No Reported Reaction Additional Past Anesthesia/Blood Transfusion Reaction / Comment(s): Recent blood transfusions without reaction 04/2016 Past Psychological History: Anxiety, Bipolar, Depression Smoking Status: Never smoker Past Alcohol Use History: None Reported Past Drug Use History: None Reported - Past Family History Father Family Medical History: Cancer Additional Family Medical History / Comment(s): Father of stomach cancer at the age of 72 yrs. Mother Family Medical History: Respiratory Disorder Additional Family Medical History / Comment(s): Mother of "collapsed lungs" at the age of 72 yrs. Medications and Allergies Home Medications Medication Instructions Recorded Confirmed Type Acetaminophen Tab [Tylenol] 650 mg PO Q4H PRN 05/04/16 05/03/21 History Artificial Tears-Hypromellose 1 drop BOTH EYES QID 05/04/16 05/03/21 History [Artificial Tear Drops] Cholecalciferol [Vitamin D3 (25 1,000 unit PO DAILY@0800 05/04/16 05/03/21 History Mcg = 1000 Iu)] DULoxetine HCL [Cymbalta] 60 mg PO DAILY@0800 05/04/16 05/03/21 History Famotidine [Pepcid] 20 mg PO DAILY@0800 05/04/16 05/03/21 History Levothyroxine Sodium [Synthroid] 50 mcg PO DAILY@0800 05/04/16 05/03/21 History Loperamide HCl [Imodium A-D] 4 mg PO QID PRN 05/04/16 05/03/21 History Magnesium Hydroxide [Milk of 2,400 mg PO DAILY PRN 05/04/16 05/03/21 History Magnesia] Multivitamins, Thera [Multivitamin 1 tab PO DAILY@0800 05/04/16 05/03/21 History (formulary)] Na Phos,M-B/Na Phos,Di-Ba [Fleet 133 ml RECTAL DAILY PRN 05/04/16 05/03/21 History Adult] Potassium Chloride [K-Tab ER] 10 meq PO DAILY@1700 05/04/16 05/03/21 History bisacodyL [Dulcolax] 10 mg RECTAL DAILY PRN 05/04/16 05/03/21 History gemfibroziL [Lopid] 600 mg PO BID@0800,1700 05/04/16 05/03/21 History Brinzolamide/Brimonidine Tart 2 drop BOTH EYES BID@0800,1700 05/03/21 05/03/21 History [Simbrinza 1%-0.2% Eye Drops] Latanoprost [Xalatan 0.005%] 1 drop BOTH EYES HS 05/03/21 05/03/21 History Loratadine 10 mg PO DAILY PRN 05/03/21 05/03/21 History Menthol [Biofreeze] 1 applic TOPICAL DAILY PRN 05/03/21 05/03/21 History Olopatadine HCl [Patanol 0.1%] 1 drop BOTH EYES BID PRN 05/03/21 05/03/21 History Topiramate [Topamax] 100 mg PO DAILY@1700 05/03/21 05/03/21 History Vit C/E/Zn/Coppr/Lutein/Zeaxan 1 cap PO BID@0800,1700 05/03/21 05/03/21 History [Preservision Areds 2 Softgel] guaiFENesin-DM 100-10MG/5ML 10 ml PO Q6H PRN 05/03/21 05/03/21 History [Robitussin DM] Allergies Allergy/AdvReac Type Severity Reaction Status Date / Time kiwi Allergy Unknown Verified 05/03/21 22:28 pineapple Allergy Unknown Verified 05/03/21 22:28 Physical Exam Vitals: Vital Signs Temp Pulse Resp BP Pulse Ox 05/04/21 08:00 68 18 122/64 100 05/04/21 04:35 98.7 F 71 17 127/61 100 05/04/21 02:21 98.4 F 71 18 135/74 99 05/04/21 01:51 98.0 F 70 18 133/79 100 05/04/21 01:41 98.0 F 69 16 126/74 100 05/04/21 00:38 70 18 125/65 100 05/03/21 21:00 98.0 F 73 18 116/54 99 Intake and Output 05/03/21 05/04/21 05/04/21 22:59 06:59 14:59 Intake Total 310 Balance 310 Intake: Blood Product 310 Rc As-1 Unit 310 [id number] Other: Weight 127.913 kg Results CBC & Chem 7: 05/04/21 17:00 05/03/21 21:50 Labs: Abnormal Lab Results - Last 24 Hours (Table) 05/03/21 05/03/21 05/03/21 Range/Units 21:50 21:50 21:50 WBC 2.5 L (3.8-10.6) k/uL RBC 2.35 L (3.80-5.40) m/uL Hgb 6.9 L* (11.4-16.0) gm/dL Hct 22.6 L (34.0-46.0) % MCHC 30.8 L (31.0-37.0) g/dL RDW 16.8 H (11.5-15.5) % Neutrophils # 1.1 L (1.3-7.7) k/uL Carbon Dioxide 20 L (22-30) mmol/L Glucose 132 H (74-99) mg/dL Alkaline Phosphatase 141 H (38-126) U/L Urine Appearance (Clear) Urine RBC (0-5) /hpf Urine WBC (0-5) /hpf Urine Bacteria (None) /hpf Crossmatch See Detail 05/04/21 05/04/21 Range/Units 05:39 07:13 WBC 2.7 L (3.8-10.6) k/uL RBC 2.76 L (3.80-5.40) m/uL Hgb 7.9 L (11.4-16.0) gm/dL Hct 26.4 L (34.0-46.0) % MCHC 29.8 L (31.0-37.0) g/dL RDW 16.4 H (11.5-15.5) % Neutrophils # (1.3-7.7) k/uL Carbon Dioxide (22-30) mmol/L Glucose (74-99) mg/dL Alkaline Phosphatase (38-126) U/L Urine Appearance Turbid H (Clear) Urine RBC >182 H (0-5) /hpf Urine WBC 47 H (0-5) /hpf Urine Bacteria Many H (None) /hpf Crossmatch Microbiology - Last 24 Hours (Table) 05/04/21 05:39 Urine Culture - Preliminary Urine,Clean Catch
[2021-05-04 22:41] LABS: Basophils % (A) 0 %; Eosinophils % (A) 0 %; HCT 26.5 % (34.0-46.0); Hypochromasia Marked; Lymphocytes # (A) 0.5 k/uL (1.0-4.8); Lymphocytes % (A) 13 %; MCHC 30.2 g/dL (31.0-37.0); MCV 95.9 fL (80.0-100.0); Mean Platelet Volume 8.5; Monocytes # (A) 0.1 k/uL (0-1.0); Monocytes % (A) 2 %; Neutrophils % (A) 84 %; Platelet Count 238 k/uL (150-450); Poikilocytosis Marked; RBC 2.77 m/uL (3.80-5.40); RDW 15.9 % (11.5-15.5); WBC 3.5 k/uL (3.8-10.6)
[2021-05-05 00:43] LABS: Anisocytosis Slight; Basophils % (A) 0 %; Eosinophils % (A) 0 %; HCT 26.3 % (34.0-46.0); Hypochromasia Marked; Lymphocytes # (A) 0.6 k/uL (1.0-4.8); Lymphocytes % (A) 16 %; MCH 28.7 pg (25.0-35.0); MCHC 30.2 g/dL (31.0-37.0); MCV 94.8 fL (80.0-100.0); Mean Platelet Volume 7.8; Monocytes # (A) 0.1 k/uL (0-1.0); Monocytes % (A) 2 %; Neutrophils # (A) 2.9 k/uL (1.3-7.7); Neutrophils % (A) 82 %; Platelet Count 263 k/uL (150-450); Poikilocytosis Marked; RBC 2.78 m/uL (3.80-5.40); RDW 16.4 % (11.5-15.5); WBC 3.5 k/uL (3.8-10.6)
[2021-05-05] MEDS: SODIUM CHLORIDE 0.9% 1,000 ML IV SCH (07:42)
[2021-05-05 08:00] VITALS: RESP 16
[2021-05-05] MEDS ORDERED: MULTIVITAMINS, THERA 1 EACH TAB PO SCH (08:00)
[2021-05-05] MEDS ORDERED: DULoxetine HCL 60 MG CAPSULE.DR PO SCH (10:17)
--- NOTE | 2021-05-05 10:33 | P.PN ---
Subjective Progress Note Date: 05/05/21 The patient underwent cystoscopy, evacuation of clot and fulguration of bleeding yesterday. The causes had ready cystitis. She states she is voiding with a discomfort this morning in the urine is alert. From urologic standpoint she can be discharged home. Objective - Vital Signs Vital signs: Vital Signs Temp 97.5 F L 05/05/21 07:58 Pulse 73 05/05/21 07:58 Resp 16 05/05/21 07:58 BP 137/77 05/05/21 07:58 Pulse Ox 100 05/05/21 07:58 Intake & Output 05/04/21 05/05/21 05/05/21 18:59 06:59 18:59 Intake Total 1200 1000 Output Total 5 Balance 1195 1000 Weight 127.913 kg Intake: IV 550 Intake, IV Titration 50 1000 Amount Dextrose 5%-0.45% NaCl 1, 900 000 ml @ 75 mls/hr IV . [id number] [facility] Rx#:[id number] cefTRIAXone 1 gm In 50 100 Sodium Chloride 0.9% 50 ml @ 100 mls/hr IVPB Q12HR [facility] Rx#:[id number] Oral 600 Output: Estimated Blood Loss 5 Other: Voiding Method Diaper # Voids 1 3 - Labs CBC & Chem 7: 05/04/21 23:57 05/03/21 21:50 Labs: Abnormal Lab Results - Last 24 Hours (Table) 05/04/21 05/04/21 05/04/21 Range/Units 17:00 22:28 23:57 WBC 3.4 L 3.5 L 3.5 L (3.8-10.6) k/uL RBC 2.94 L 2.77 L 2.78 L (3.80-5.40) m/uL Hgb 8.5 L 8.0 L 8.0 L (11.4-16.0) gm/dL Hct 28.0 L 26.5 L 26.3 L (34.0-46.0) % MCHC 30.4 L 30.2 L 30.2 L (31.0-37.0) g/dL RDW 16.5 H 15.9 H 16.4 H (11.5-15.5) % Lymphocytes # 0.6 L 0.5 L 0.6 L (1.0-4.8) k/uL Microbiology - Last 24 Hours (Table) 05/04/21 05:39 Urine Culture - Preliminary Urine,Clean Catch
[2021-05-05] MEDS: CHOLECALCIFEROL 25 MCG (1000 IU) TABLET PO SCH (11:34)
[2021-05-05] MEDS: VIT A,C & E-LUTEIN-MINERALS 1 EACH TAB PO SCH (11:34)
[2021-05-05] MEDS: FAMOTIDINE 20 MG TAB PO SCH (11:34)
[2021-05-05] MEDS: FENOFIBRATE 160 MG TAB PO SCH (11:35)
[2021-05-05] MEDS: LEVOTHYROXINE 50 MCG TAB PO SCH (11:35)
[2021-05-05] MEDS: DORZOLAMIDE HCL 2% DROPS 10 ML BTL BOTH EYES SCH (11:42)
[2021-05-05] MEDS: DEXTROSE 5%-0.45% NACL 1,000 ML IV SCH (11:43)
[2021-05-05] MEDS: BRIMONIDINE TARTRATE 0.2% DROPS 5 ML BTL BOTH EYES SCH (11:44)
[2021-05-05] MEDS: ARTIFICIAL TEARS-HYPROMELLOSE DROPS 15 ML BTL BOTH EYES SCH ×2 (11:44→13:24)
[2021-05-05 11:57] VITALS: BP 108/67; PULSE 76; TEMP 97.6
--- NOTE | 2021-05-05 14:21 | P.DS ---
Providers Date of admission: 05/04/21 05:16 Expected date of discharge: 05/05/21 Attending physician: Km Garcia Consults: 05/04/21 05:48 Consult Physician Routine Consulting Provider: Zoran Rizzo Consult Reason/Comments: history of radiation cystitis and fulguration of bladder bleeding Do you want consulting provider notified?: Yes Primary care physician: [facility] Course: Chief Complaint: Anemia This is a 60-year-old patient who follows with Dr. García of the [facility]. Extensive medical history. GERD, hyperlipidemia, hypertension, hypothyroid, history of endometrial ovarian cancer with radiation, hemorrhagic cystitis following radiation, fragile X chromosomal disorder, patient has a legal guardian, intellectual disability, hiatal hernia, arthritis lower back, chronic constipation, vitamin D deficiency, bipolar. Patient does use a walker to get out of bed and to a wheelchair. Patient is able to answer simple questions. She is reported to have intermittent hematuria for quite some time. In 2016 had a cystoscopy by Dr. Santana. Clots were removed. Fulguration of bleeding was carried out. Patient yesterday on May 04, underwent by Dr. Mendez cystoscopy followed by evacuation of clot and fulguration of radiation cystitis. May 05: Stable. No further bleeding. Discussed with patient. Comfortable. Past medical history to include: GERD, hyperlipidemia, hypertension, endometrial ovarian cancer with radiation treatment, hemorrhagic cystitis from radiation, fragile X chromosomal disorder, intellectual disability, hiatal hernia, arthritis, constipation, vitamin D deficiency, chronic medical debility Social history: Lives at [facility]. Has a legal guardian. Does use a walker to transfer. Family history: Father of stomach cancer. Physical examination: VITAL SIGNS: 97.6, 76, 16, 108/67, 100% room air GENERAL: BMI 53.3, laying in bed, awake,. EYES: Pupils equal. Conjunctiva palel. HEENT: External appearance of nose and ears normal, oral cavity grossly normal. NECK: JVD not raised; masses not palpable. HEART: First and second heart sounds are normal; no edema. LUNGS: Respiratory rate normal; distant breath sounds. ABDOMEN: Soft, nontender, liver spleen not palpable, no masses palpable. PSYCH: [Patient able to answer simple questions. Knows that she is admitted to the hospital. Knows the year.. MUSCULOSKELETAL:No Clubbing/cyanosis;muscles-grossly intact NEUROLOGICAL: [Cranial nerves grossly intact; no facial asymmetry, does move upper extremity better than lower extremity. LYMPHATICS: No lymph nodes palpable in the axilla and neck INVESTIGATIONS, reviewed in the clinical context: Hemoglobin 8 May 04: White count 2.7 hemoglobin 7.9 Admission labs: Hemoglobin 6.9 potassium 4.2 creatinine 0.7 UA positive for RBC more than 182 Coronavirus [PCR]: Not detected Assessment and plan: -Acute blood loss anemia from recurrent hematuria Patient received 1 unit of blood. 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 Mendez. -Morbid obesity BMI 53.3 -GERD Pepcid -Hyperlipidemia Lopid 600 mg twice a day -Hypothyroid Synthroid 50 g daily -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 Fall precautions -Bipolar Cymbalta 60 mg daily -Patient has a legal guardian Disposition: [facility]/[place] Plan - Discharge Summary Discharge Rx Participant: No New Discharge Prescriptions: New Cefuroxime [Ceftin] 250 mg PO BID #10 tab Continue Loperamide HCl [Imodium A-D] 4 mg PO QID PRN PRN Reason: Diarrhea Na Phos,M-B/Na Phos,Di-Ba [Fleet Adult] 133 ml RECTAL DAILY PRN PRN Reason: Constipation bisacodyL [Dulcolax] 10 mg RECTAL DAILY PRN PRN Reason: CONSTIPATION Acetaminophen Tab [Tylenol] 650 mg PO Q4H PRN PRN Reason: Fever And/ Or Pain gemfibroziL [Lopid] 600 mg PO BID@0800,1700 Artificial Tears-Hypromellose [Artificial Tear Drops] 1 drop BOTH EYES QID Cholecalciferol [Vitamin D3 (25 Mcg = 1000 Iu)] 1,000 unit PO DAILY@0800 Potassium Chloride [K-Tab ER] 10 meq PO DAILY@1700 Famotidine [Pepcid] 20 mg PO DAILY@0800 Multivitamins, Thera [Multivitamin (formulary)] 1 tab PO DAILY@0800 Levothyroxine Sodium [Synthroid] 50 mcg PO DAILY@0800 DULoxetine HCL [Cymbalta] 60 mg PO DAILY@0800 Vit C/E/Zn/Coppr/Lutein/Zeaxan [Preservision Areds 2 Softgel] 1 cap PO BID@0800,1700 Menthol [Biofreeze] 1 applic TOPICAL DAILY PRN PRN Reason: right shoulder/lower back pain Latanoprost [Xalatan 0.005%] 1 drop BOTH EYES HS guaiFENesin-DM 100-10MG/5ML [Robitussin DM] 10 ml PO Q6H PRN PRN Reason: Cough Topiramate [Topamax] 100 mg PO DAILY@1700 Olopatadine HCl [Patanol 0.1%] 1 drop BOTH EYES BID PRN PRN Reason: Allergy Symptoms Brinzolamide/Brimonidine Tart [Simbrinza 1%-0.2% Eye Drops] 2 drop BOTH EYES BID@0800,1700 Discontinued Magnesium Hydroxide [Milk of Magnesia] 2,400 mg PO DAILY PRN PRN Reason: Constipation Loratadine 10 mg PO DAILY PRN PRN Reason: allergic rhinitis Discharge Medication List Acetaminophen Tab [Tylenol] 650 mg PO Q4H PRN 05/04/16 [History] Artificial Tears-Hypromellose [Artificial Tear Drops] 1 drop BOTH EYES QID 05/04/16 [History] Cholecalciferol [Vitamin D3 (25 Mcg = 1000 Iu)] 1,000 unit PO DAILY@0800 05/04/16 [History] DULoxetine HCL [Cymbalta] 60 mg PO DAILY@0800 05/04/16 [History] Famotidine [Pepcid] 20 mg PO DAILY@0805/04/16 [History] Levothyroxine Sodium [Synthroid] 50 mcg PO DAILY@0805/04/16 [History] Loperamide HCl [Imodium A-D] 4 mg PO QID PRN 05/04/16 [History] Multivitamins, Thera [Multivitamin (formulary)] 1 tab PO DAILY@0800 05/04/16 [History] Na Phos,M-B/Na Phos,Di-Ba [Fleet Adult] 133 ml RECTAL DAILY PRN 05/04/16 [History] Potassium Chloride [K-Tab ER] 10 meq PO DAILY@17005/04/16 [History] bisacodyL [Dulcolax] 10 mg RECTAL DAILY PRN 05/04/16 [History] gemfibroziL [Lopid] 600 mg PO BID@0800,17005/04/16 [History] Brinzolamide/Brimonidine Tart [Simbrinza 1%-0.2% Eye Drops] 2 drop BOTH EYES BID@0800,1700 05/03/21 [History] Latanoprost [Xalatan 0.005%] 1 drop BOTH EYES HS 05/03/21 [History] Menthol [Biofreeze] 1 applic TOPICAL DAILY PRN 05/03/21 [History] Olopatadine HCl [Patanol 0.1%] 1 drop BOTH EYES BID PRN 05/03/21 [History] Topiramate [Topamax] 100 mg PO DAILY@169905/03/21 [History] Vit C/E/Zn/Coppr/Lutein/Zeaxan [Preservision Areds 2 Softgel] 1 cap PO BID@0800,169905/03/21 [History] guaiFENesin-DM 100-10MG/5ML [Robitussin DM] 10 ml PO Q6H PRN 05/03/21 [History] Cefuroxime [Ceftin] 250 mg PO BID #10 tab 05/05/21 [Rx] Follow up Appointment(s)/Referral(s): Ludwig García DO [Primary Care Provider] - 1-2 days Zoran Rizzo MD [STAFF PHYSICIAN] - 1-2 days Patient Instructions/Handouts: Hematuria (ED) Activity/Diet/Wound Care/Special Instructions: I recommended hospital admission. You must follow-up with urology for further evaluation of your bleeding. Return for any new or worsening symptoms
== END 2021-05-05 14:50 | DRG 669 ==
LOC: EEVIPCON 20:54 → EC 20:54 → 5NMEDONC 05-04 05:16
PROVIDERS: ADMIT Hospitalist; ATTEND Hospitalist
PROC: 30233N1 Transfusion of Nonautologous Red Blood Cells into Peripheral Vein, Percutaneous Approach (ICD-10-PCS; 2021-05-04)
PROC: 0T5B8ZZ Destruction of Bladder, Via Natural or Artificial Opening Endoscopic (ICD-10-PCS; principal; 2021-05-04 12:35)
PROC: 0TCB8ZZ Extirpation of Matter from Bladder, Via Natural or Artificial Opening Endoscopic (ICD-10-PCS; principal; 2021-05-04 12:35)
DX: N30.41 Irradiation cystitis with hematuria (principal); D62 Acute posthemorrhagic anemia; Z68.43 Body mass index [BMI] 50.0-59.9, adult; N02.9 Recurrent and persistent hematuria with unspecified morphologic changes; E03.9 Hypothyroidism, unspecified; E55.9 Vitamin D deficiency, unspecified; Z20.822 Contact with and (suspected) exposure to COVID-19; E66.01 Morbid (severe) obesity due to excess calories; E78.5 Hyperlipidemia, unspecified; F31.9 Bipolar disorder, unspecified; F41.9 Anxiety disorder, unspecified; F79 Unspecified intellectual disabilities; I10 Essential (primary) hypertension; I25.10 Atherosclerotic heart disease of native coronary artery without angina pectoris; K21.9 Gastro-esophageal reflux disease without esophagitis; K44.9 Diaphragmatic hernia without obstruction or gangrene; K59.09 Other constipation; M19.90 Unspecified osteoarthritis, unspecified site; Q99.2 Fragile X chromosome; Y84.2 Radiological procedure and radiotherapy as the cause of abnormal reaction of the patient, or of later complication, without mention of misadventure at the time of the procedure; Z79.890 Hormone replacement therapy; Z79.899 Other long term (current) drug therapy; Z80.0 Family history of malignant neoplasm of digestive organs; Z85.43 Personal history of malignant neoplasm of ovary; Z92.3 Personal history of irradiation; R53.81 Other malaise; M47.816 Spondylosis without myelopathy or radiculopathy, lumbar region; M41.9 Scoliosis, unspecified; Z91.018 Allergy to other foods; Z87.42 Personal history of other diseases of the female genital tract; Z87.19 Personal history of other diseases of the digestive system
CPT/HCPCS: 36415; 76856; 80053; 81001; 84443; 85025; 85027; 85610; 85730; 86850; 86900; 86901; 86920; 87077; 87086; 87186; 87635; 99285

== ENCOUNTER → 2023-11-02 | Outpatient (CLI) | payer MEDICARE, OTHER ==
--- NOTE | 2023-11-30 19:35 | CT ---
Site ID [facility] Sangeetha Lewis ID [id number] Order # Procedure PE CHEST EXAMINATION TYPE: CT angio chest CT DLP: 341 mGycm, Automated exposure control for dose reduction was used. DATE OF EXAM: 11/10/2023 2:16 PM COMPARISON: THIS EXAM WAS READ DURING PACS DOWNTIME, NO PRIORS AVAILABLE. CLINICAL INDICATION: SOB, PE. History of Breast Cancer with bilateral mastectomy (2016). Isovue 370/100 ml 20 gauge righ t lateral wrist. DLP: 341.3 TECHNIQUE/CONTRAST: CTA scan of the thorax is performed with IV Contrast, patient injected with 100 mL of Isovue 370, MIP images are created and reviewed these are created on a separate workstation.. FINDINGS: Pulmonary Artery: There is no evidence for a filling defect within the pulmonary vasculature to sugge st acute pulmonary embolism. The pulmonary artery is of normal size. Lungs/Pleura: Large left pleural effusion with associated atelectasis and rightward deviation of the sternum. Right lower lung calcified granuloma. Airway: Large airways are patent. Heart: Heart is within normal limits for size. Vasculature: No evidence of aortic aneurysm. Mediastinum: No gross evidence of adenopathy, rightward deviation due to large pleural effusion. Musculoskeletal: No acute osseous abnormalities Soft Tissues/lymph nodes: Bilateral breast implants appear intact. Lower neck: No significant findings. Upper Abdomen: Left adrenal nodule most compatible with adrenal adenoma measuring 12 mm IMPRESSION: 1. No evidence of pulmonary embolism. 2. Large left pleural effusion with complete atelectasis of the left lung. Rightward deviation of the mediastinum. Thoracentesis recommended. 3. Right adrenal nodule with Hounsfield units compatible with adrenal adenoma. Correlation with prior s if available at outside institutions for stability given history of malignancy.
== END | disposition home or self-care (01) ==
LOC: RADCTMAIN 06:24
PROVIDERS: ATTEND Family Medicine
DX: J90 Pleural effusion, not elsewhere classified (principal); J98.11 Atelectasis; E27.8 Other specified disorders of adrenal gland; Z85.43 Personal history of malignant neoplasm of ovary; Z85.3 Personal history of malignant neoplasm of breast; Z86.711 Personal history of pulmonary embolism; Z90.13 Acquired absence of bilateral breasts and nipples
CPT/HCPCS: 82565; 84520; 74177; 36415; Q9967

== ENCOUNTER → 2023-12-01 | Outpatient (CLI) | payer MEDICARE, OTHER ==
--- NOTE | 2023-12-03 11:30 | MM ---
Reason for Exam: Screening (asymptomatic). Baseline mammogram. Patient History: Menarche at age 10. First Full-Term at age 20. Postmenopausal. Other cancer. Sister had breast cancer, age 43. Risk Values: Sylvia 5 year model risk: 3.2%. NCI Lifetime model risk: 11.7%. Prior Study Comparison: Patient's first Mammogram. Tissue Density: The breasts are almost entirely fatty. Findings: Analyzed By CAD. Right breast: There is no suspicious group of microcalcifications or new suspicious mass. Left breast: There is no suspicious group of microcalcifications or new suspicious mass. Overall Assessment: Negative, BI-RAD 1 Management: Screening Mammogram of both breasts in [address] [facility] will attempt to contact patient to return for supplemental views and ultrasound if indicated. Patient should continue monthly self-breast exams. A clinical breast exam by your physician is recommended on an annual basis. This exam should not preclude additional follow-up of suspicious palpable abnormalities. Note on Sylvia scores and lifetime risk: 1. A Sylvia score greater than 3% is considered moderate risk. If this is the case, consider specialist referral to assess eligibility for a risk reducing agent. 2. If overall lifetime risk for the development of breast cancer is 20% or higher, the patient may qualify for future screening with alternating mammogram and breast MRI. Electronically signed and approved by: Luis Enrique Tellez DO
== END | disposition home or self-care (01) ==
LOC: RADMAMWWP 13:37
PROVIDERS: ATTEND Family Medicine
DX: Z12.31 Encounter for screening mammogram for malignant neoplasm of breast
CPT/HCPCS: 77063; 77067

== ENCOUNTER 2024-09-12 16:55 | Inpatient (IN) | payer MEDICARE, OTHER ==
--- NOTE | 2024-09-12 17:15 | ED ---
General Adult HPI - General Stated complaint: UTI Time Seen by Provider: 09/12/24 16:57 Source: patient, RN notes reviewed Mode of arrival: EMS Limitations: no limitations - History of Present Illness Initial comments: Patient is a 64-year-old female presenting to the emergency department with concerns for shaking. Patient reportedly had a fever at detention of 104. Patient given 650 mg Tylenol. Patient has recent ESBL urinary tract infection however did finish her antibiotics. Patient is not ambulatory. Patient has a difficult time providing history. - Related Data Home Medications Medication Instructions Recorded Confirmed Acetaminophen Tab [Tylenol] 650 mg PO Q4H PRN 05/04/16 08/12/24 Cholecalciferol [Vitamin D3 (25 1,000 unit PO DAILY@169905/04/16 08/12/24 Mcg = 1000 Iu)] DULoxetine HCL [Cymbalta] 60 mg PO DAILY@0800 05/04/16 08/12/24 Famotidine [Pepcid] 20 mg PO DAILY@0800 05/04/16 08/12/24 Levothyroxine Sodium [Synthroid] 50 mcg PO HS@209905/04/16 08/12/24 Loperamide HCl [Imodium A-D] 2 - 4 mg PO QID PRN 05/04/16 08/12/24 Multivitamins, Thera [Multivitamin 1 tab PO DAILY@169905/04/16 08/12/24 (formulary)] Na Phos,M-B/Na Phos,Di-Ba [Fleet 133 ml RECTAL DAILY PRN 05/04/16 08/12/24 Adult] Potassium Chloride [K-Tab ER] 10 meq PO DAILY@0800 05/04/16 08/12/24 bisacodyL [Dulcolax] 10 mg RECTAL DAILY PRN 05/04/16 08/12/24 gemfibroziL [Lopid] 600 mg PO BID@0800,169905/04/16 08/12/24 Brinzolamide/Brimonidine Tart 1 drop BOTH EYES BID@0800,1700 05/03/21 08/12/24 [Simbrinza 1%-0.2% Eye Drops] Latanoprost [Xalatan 0.005%] 1 drop BOTH EYES HS@209905/03/21 08/12/24 Menthol [Biofreeze] 1 applic TOPICAL DAILY PRN 05/03/21 08/12/24 Topiramate [Topamax] 100 mg PO DAILY@0800 05/03/21 08/12/24 Vit C/E/Zn/Coppr/Lutein/Zeaxan 1 cap PO BID@0800,1700 05/03/21 08/12/24 [Preservision Areds 2 Softgel] Acetaminophen Tab [Tylenol] 500 mg PO Q8HR@0600,1400,2200 08/12/24 08/12/24 Azelastine HCl [Optivar 0.05% 1 drop BOTH EYES BID@0800,169908/12/24 08/12/24 Ophth Soln] Benzocaine/Menthol Lozeng [Cepacol 1 lozenge MUCOUS MEM Q2H PRN 08/12/24 08/12/24 lozenge] DULoxetine HCL [Cymbalta] 30 mg PO DAILY@0808/12/24 08/12/24 Ensure Enlive 237 ml PO BID@0800,169908/12/24 08/12/24 Gabapentin 600 mg PO HS@2100 08/12/24 08/12/24 Gabapentin [Neurontin] 300 mg PO DAILY@0808/12/24 08/12/24 Loratadine [Claritin] 10 mg PO Q24H PRN 08/12/24 08/12/24 Maalox Plus 295-882-18lq/5mg 30 ml PO Q6H PRN 08/12/24 08/12/24 Magnesium Hydroxide [Milk of 7,200 mg PO DIRECTED PRN 08/12/24 08/12/24 Magnesia Concentrate] Meloxicam [Mobic] 7.5 mg PO DAILY@0808/12/24 08/12/24 Polyvinyl Alcohol Opthalmic 1 drop BOTH EYES DAILY PRN 08/12/24 08/12/24 Solution Pravastatin Sodium [Pravachol] 20 mg PO HS@212908/12/24 08/12/24 Psyllium Husk (with Sugar) 17 gm PO DAILY@17008/12/24 08/12/24 [Metamucil Powder] metFORMIN HCL [Glucophage] 500 mg PO BID@0800,1700 08/12/24 08/12/24 Previous Rx's Medication Instructions Recorded Ertapenem [INVanz] 1 gm IVPB Q24H #2 each 08/21/24 Allergies Allergy/AdvReac Type Severity Reaction Status Date / Time kiwi Allergy Unknown Verified 09/12/24 19:10 pineapple Allergy Unknown Verified 09/12/24 19:10 Review of Systems ROS Statement: Those systems with pertinent positive or pertinent negative responses have been documented in the HPI. ROS Other: All systems not noted in ROS Statement are negative. Constitutional: Reports: as per HPI, fever, chills Eyes: Denies: eye pain Respiratory: Denies: cough, dyspnea Cardiovascular: Denies: chest pain Endocrine: Reports: fatigue Gastrointestinal: Denies: abdominal pain Past Medical History Past Medical History: Blood Disorder, Cancer, Chest Pain / Angina, Eye Disorder, GERD/Reflux, Hyperlipidemia, Hypertension, Thyroid Disorder Additional Past Medical History / Comment(s): atherosclerotic heart disease, HIATAL HERNIA, hypothyroidism History of Any Multi-Drug Resistant Organisms: None Reported Date of last positivie culture/infection: 08/18/24 MDRO Source:: urine Past Surgical History: Heart Catheterization, Tubal Ligation Additional Past Surgical History / Comment(s): 05/06/16 cystoscopy with bladder bx, evacuation of clots, fulguration of bleeder, ? tonsils-pt not sure, cardiac cath-negative. Past Anesthesia/Blood Transfusion Reactions: No Reported Reaction Additional Past Anesthesia/Blood Transfusion Reaction / Comment(s): Recent blood transfusions without reaction 04/2016 Smoking Status: Never smoker - Past Family History Father Family Medical History: Cancer Additional Family Medical History / Comment(s): Father of stomach cancer at the age of 72 yrs. Mother Family Medical History: Respiratory Disorder Additional Family Medical History / Comment(s): Mother of "collapsed lungs" at the age of 72 yrs. General Exam Limitations: no limitations General appearance: alert, in no apparent distress Head exam: Present: normocephalic Eye exam: Present: normal appearance Neck exam: Present: normal inspection. Absent: tenderness, meningismus Respiratory exam: Present: normal lung sounds bilaterally Cardiovascular Exam: Present: regular rate, normal rhythm GI/Abdominal exam: Present: soft. Absent: tenderness Extremities exam: Present: other (Muscle atrophy of the legs). Absent: calf tenderness Neurological exam: Present: alert, other (Limited ability to follow commands) Psychiatric exam: Present: normal affect, normal mood Skin exam: Present: normal color Course Vital Signs 09/12/24 09/12/24 16:55 18:30 Temperature 103.4 F H 99.8 F H Pulse Rate 106 H 98 Respiratory 24 19 Rate Blood Pressure 111/59 109/57 O2 Sat by Pulse 97 96 Oximetry EKG Findings - EKG Results: EKG: interpreted by ERMD (Left axis. Poor R wave progression.), sinus rhythm, normal ST/T EKG shows: tachycardia Medical Decision Making - Medical Decision Making There is concern for sepsis diagnosed at 1900. Blood culture and lactic acid and IV antibiotics have all been ordered. Was pt. sent in by a medical professional or institution (, PA, METAL CANS SUPERVISOR, urgent care, hospital, or detention...) When possible be specific @ -Patient sent from detention Did you speak to anyone other than the patient for history (EMS, parent, family, police, friend...)? What history was obtained from this source @ -No Did you review nursing and triage notes (agree or disagree)? Why? @ -I reviewed and agree with nursing and triage notes Were old charts reviewed (outside hosp., previous admission, EMS record, old EKG, old radiological studies, urgent care reports/EKG's, detention records)? Report findings @ -Previous urine cultures reviewed with sensitivities. Differential Diagnosis (chest pain, altered mental status, abdominal pain women, abdominal pain men, vaginal bleeding, weakness, fever, dyspnea, syncope, headache, dizziness, GI bleed, back pain, seizure, CVA, palpatations, mental health, musculoskeletal)? @ -Differential Fever: Pneumonia, viral URI, endocarditis, myocarditis, pericarditis, otitis, sinusitis, peritonsillar Abscess, retropharyngeal Abscess, epiglottitis, peritonitis, appendicitis, Jesusita cystitis, diverticulitis, hepatitis, colitis, UTI, PID, TOA, pyelonephritis, prostatitis, epididymitis, meningitis, encephalitis, pulmonary embolism, CVA, thyroid storm, pancreatitis, adrenal crisis, cavernous sinus thrombosis, this is not meant to be an all-inclusive list. EKG interpreted by me (3pts min.). @ -As above X-rays interpreted by me (1pt min.). @ -Chest x-ray shows right lower lobe atelectasis versus infiltrate CT interpreted by me (1pt min.). @ -None done U/S interpreted by me (1pt. min.). @ -None done What testing was considered but not performed or refused? (CT, X-rays, U/S, labs)? Why? @ -None What meds were considered but not given or refused? Why? @ -None Did you discuss the management of the patient with other professionals (professionals i.e. , PA, METAL CANS SUPERVISOR, lab, RT, psych nurse, child protective services social worker, saddle lining stitcher, teacher, family preservation officer, case finisher)? Give summary @ -Dr. Garcia to admit covering Dr. Camara for us Was smoking cessation discussed for >3mins.? @ -No Was critical care preformed (if so, how long)? @ -31 minutes critical care time Were there social determinants of health that impacted care today? How? (Homelessness, low income, unemployed, alcoholism, drug addiction, transportation, low edu. Level, literacy, decrease access to med. care, correction, r ehab)? @ -No Was there de-escalation of care discussed even if they declined (Discuss DNR or withdrawal of care, Hospice)? DNR status @ -No What co-morbidities impacted this encounter? (DM, HTN, Smoking, COPD, CAD, Cancer, CVA, ARF, Chemo, Hep., AIDS, mental health diagnosis, sleep apnea, morbid obesity)? @ -Recent ESBL UTI Was patient admitted / discharged? Hospital course, mention meds given and route, prescriptions, significant lab abnormalities, going to OR and other pertinent info. @ -Patient from detention with concern for fever. Evidence of recurrent urinary tract infection with recent ESBL. Sensitivity appears sensitive to Unasyn. Patient will be admitted with IV antibiotics. [place] orders written. Patient reevaluated and updated Undiagnosed new problem with uncertain prognosis? @ -No Drug Therapy requiring intensive monitoring for toxicity (Heparin, Nitro, Insulin, Cardizem)? @ -No Were any procedures done? @ -No Diagnosis/symptom? @ -Sepsis, UTI Acute, or Chronic, or Acute on Chronic? @ -Acute, acute Uncomplicated (without systemic symptoms) or Complicated (systemic symptoms)? @ -Default Side effects of treatment? @ -No Exacerbation, Progression, or Severe Exacerbation? @ -No Poses a threat to life or bodily function? How? (Chest pain, USA, CA, pneumonia, PE, COPD, DKA, ARF, appy, cholecystitis, CVA, Diverticulitis, Homicidal, Suicidal, threat to staff... and all critical care pts) @ -Threat for multi organ dysfunction - Lab Data Result diagrams: 09/12/24 17:48 09/12/24 17:48 Lab Results 09/12/24 09/12/24 09/12/24 Range/Units 17:48 17:48 17:48 WBC 13.29 H (4.50-10.00) 10*3/uL RBC 3.01 L (4.10-5.20) 10*6/uL Hgb 9.0 L D (12.0-15.0) g/dL Hct 29.0 L (37.2-46.3) % MCV 96.3 (80.0-97.0) fL MCH 29.9 (27.0-32.0) pg MCHC 31.0 L (32.0-37.0) g/dL Plt Count 294 (140-440) 10*3/uL MPV 8.8 L (9.5-12.2) fL Immature Gran % (Auto) 0.5 % Neutrophils % 85.8 % Lymphocytes % 6.7 % Monocytes % 6.4 % Eosinophils % 0.2 % Basophils % 0.4 % Immature Gran # 0.06 H (0.00-0.04) 10*3/uL Neutrophils # 11.42 H (1.80-7.70) 10*3/uL Lymphocytes # 0.89 L (0.90-5.00) 10*3/uL Monocytes # 0.85 (0.20-1.00) 10*3/uL Eosinophils # 0.02 L (0.04-0.35) 10*3/uL Basophils # 0.05 (0.00-0.10) 10*3/uL PT 11.9 (10.0-12.5) sec INR 1.1 (<1.2) APTT 22.9 (22.0-30.0) sec Sodium 135 L (137-145) mmol/L Potassium 4.7 (3.5-5.1) mmol/L Chloride 103 (98-107) mmol/L Carbon Dioxide 19 L (22-30) mmol/L Anion Gap 13 mmol/L BUN 21 H (7-17) mg/dL Creatinine 1.40 H (0.52-1.04) mg/dL Est GFR (CKD-EPI)AfAm 45 (>60 ml/min/1.73 sqM) Est GFR (CKD-EPI)NonAf 39 (>60 ml/min/1.73 sqM) Glucose 119 H (74-99) mg/dL Plasma Lactic Acid Jasen (0.7-2.0) mmol/L Calcium 9.2 (8.4-10.2) mg/dL Total Bilirubin 0.9 (0.2-1.3) mg/dL AST 31 (14-36) U/L ALT 11 (4-34) U/L Alkaline Phosphatase 149 H (38-126) U/L Total Protein 7.0 (6.3-8.2) g/dL Albumin 3.7 (3.5-5.0) g/dL Urine Color Urine Appearance (Clear) Urine pH (5.0-8.0) Ur Specific Ward (1.001-1.035) Urine Protein (Negative) Urine Glucose (UA) (Negative) Urine Ketones (Negative) Urine Blood (Negative) Urine Nitrite (Negative) Urine Bilirubin (Negative) Urine Urobilinogen (<2.0) mg/dL Ur Leukocyte Esterase (Negative) Urine RBC (0-5) /hpf Urine WBC (0-5) /hpf Urine Bacteria (None) /hpf Urine Mucus (None) /hpf Influenza Type A (PCR) (Not Detectd) Influenza Type B (PCR) (Not Detectd) RSV (PCR) (Not Detectd) SARS-CoV-2 (PCR) (Not Detectd) 09/12/24 09/12/24 09/12/24 Range/Units 17:48 17:48 18:14 WBC (4.50-10.00) 10*3/uL RBC (4.10-5.20) 10*6/uL Hgb (12.0-15.0) g/dL Hct (37.2-46.3) % MCV (80.0-97.0) fL MCH (27.0-32.0) pg MCHC (32.0-37.0) g/dL Plt Count (140-440) 10*3/uL MPV (9.5-12.2) fL Immature Gran % (Auto) % Neutrophils % % Lymphocytes % % Monocytes % % Eosinophils % % Basophils % % Immature Gran # (0.00-0.04) 10*3/uL Neutrophils # (1.80-7.70) 10*3/uL Lymphocytes # (0.90-5.00) 10*3/uL Monocytes # (0.20-1.00) 10*3/uL Eosinophils # (0.04-0.35) 10*3/uL Basophils # (0.00-0.10) 10*3/uL PT (10.0-12.5) sec INR (<1.2) APTT (22.0-30.0) sec Sodium (137-145) mmol/L Potassium (3.5-5.1) mmol/L Chloride (98-107) mmol/L Carbon Dioxide (22-30) mmol/L Anion Gap mmol/L BUN (7-17) mg/dL Creatinine (0.52-1.04) mg/dL Est GFR (CKD-EPI)AfAm (>60 ml/min/1.73 sqM) Est GFR (CKD-EPI)NonAf (>60 ml/min/1.73 sqM) Glucose (74-99) mg/dL Plasma Lactic Acid Jasen 1.8 (0.7-2.0) mmol/L Calcium (8.4-10.2) mg/dL Total Bilirubin (0.2-1.3) mg/dL AST (14-36) U/L ALT (4-34) U/L Alkaline Phosphatase (38-126) U/L Total Protein (6.3-8.2) g/dL Albumin (3.5-5.0) g/dL Urine Color Yellow Urine Appearance Turbid H (Clear) Urine pH 8.5 H (5.0-8.0) Ur Specific Ward 1.016 (1.001-1.035) Urine Protein 3+ H (Negative) Urine Glucose (UA) Negative (Negative) Urine Ketones Negative (Negative) Urine Blood Small H (Negative) Urine Nitrite Negative (Negative) Urine Bilirubin Negative (Negative) Urine Urobilinogen <2.0 (<2.0) mg/dL Ur Leukocyte Esterase Large H (Negative) Urine RBC 67 H (0-5) /hpf Urine WBC >182 H (0-5) /hpf Urine Bacteria Many H (None) /hpf Urine Mucus Rare H (None) /hpf Influenza Type A (PCR) Not Detected (Not Detectd) Influenza Type B (PCR) Not Detected (Not Detectd) RSV (PCR) Not Detected (Not Detectd) SARS-CoV-2 (PCR) Not Detected (Not Detectd) Disposition Clinical Impression: UTI (urinary tract infection), Sepsis Disposition: ADMITTED IP TO THIS HOSP Condition: Serious Is patient prescribed a controlled substance at d/c from ED?: No Referrals: Ludwig García DO [Primary Care Provider] - 1-2 days Time of Disposition: 19:16
[2024-09-12] MEDS: ACETAMINOPHEN TAB 325 MG TAB PO STA (17:31)
[2024-09-12] MEDS: LACTATED RINGERS 1,000 ML IV SCH ×2 (17:34→23:04)
--- NOTE | 2024-09-12 17:34 | XR ---
EXAMINATION TYPE: XR chest 1V portable DATE OF EXAM: 09/12/2024 5:30 PM COMPARISON: PET CT 01/06/2018 TECHNIQUE: XR chest 1V portable Portable AP radiograph of the chest. CLINICAL INDICATION:Female, 64 years old with history of Fever; FINDINGS: Lungs/Pleura: Medial right lower lung opacities. No pleural effusion or pneumothorax. Pulmonary vascularity: Unremarkable. Heart/mediastinum: Cardiomediastinal silhouette is enlarged. Musculoskeletal: No acute osseous pathology. IMPRESSION: Medial right lower lung opacities which may represent atelectasis versus infiltrates. [facility], , 09/12/2024 5:32 PM
[2024-09-12 17:59] LABS: Basophils # (A) 0.05 10*3/uL (0.00-0.10); Basophils % (A) 0.4 %; Eosinophils # (A) 0.02 10*3/uL (0.04-0.35); Eosinophils % (A) 0.2 %; Lymphocytes # (A) 0.89 10*3/uL (0.90-5.00); Lymphocytes % (A) 6.7 %; MCH 29.9 pg (27.0-32.0); MCV 96.3 fL (80.0-97.0); Mean Platelet Volume 8.8 fL (9.5-12.2); Monocytes # (A) 0.85 10*3/uL (0.20-1.00); Monocytes % (A) 6.4 %; Neutrophils # (A) 11.42 10*3/uL (1.80-7.70); Neutrophils % (A) 85.8 %; Platelet Count 294 10*3/uL (140-440); RBC 3.01 10*6/uL (4.10-5.20); RDW 17.4 % (11.5-14.5); WBC 13.29 10*3/uL (4.50-10.00)
[2024-09-12 18:11] LABS: ALT 11 U/L (4-34); AST 31 U/L (14-36); African American GFR (CKD) 45 (>60 ml/min/1.73 sqM); Albumin 3.7 g/dL (3.5-5.0); Alkaline Phosphatase 149 U/L (38-126); Anion Gap 13 mmol/L; Blood Urea Nitrogen 21 mg/dL (7-17); Calcium 9.2 mg/dL (8.4-10.2); Carbon Dioxide 19 mmol/L (22-30); Chloride 103 mmol/L (98-107); Glucose 119 mg/dL (74-99); Non-African American GFR(CKD) 39 (>60 ml/min/1.73 sqM); Potassium 4.7 mmol/L (3.5-5.1); Sodium 135 mmol/L (137-145); Total Bilirubin 0.9 mg/dL (0.2-1.3)
[2024-09-12 18:15] LABS: INR 1.1 (<1.2); Partial Thromboplastin Time 22.9 sec (22.0-30.0); Prothrombin Time 11.9 sec (10.0-12.5)
[2024-09-12 18:26] LABS: Appearance,Urine Turbid (Clear); Bacteria,Urine Many /hpf; Bilirubin,Urine Negative (Negative); Blood,Urine Small (Negative); Color,Urine Yellow; Glucose,Urine (UA) Negative (Negative); Ketones,Urine Negative (Negative); Leukocyte Esterase,Urine Large (Negative); Mucus,Urine Rare /hpf; Nitrite,Urine Negative (Negative); PH, Urine 8.5 (5.0-8.0); Protein,Urine 3+ (Negative); RBC,Urine 67 /hpf (0-5); Specific Gravity,Urine 1.016 (1.001-1.035); Urobilinogen,Urine <2.0 mg/dL (<2.0); WBC,Urine >182 /hpf (0-5)
[2024-09-12 18:32] LABS: Influenza A Not Detected (Not Detectd); Influenza B Not Detected (Not Detectd); RSV Not Detected (Not Detectd)
[2024-09-12] MEDS ORDERED: ACETAMINOPHEN TAB 325 MG TAB PO PRN (19:17)
[2024-09-12] MEDS ORDERED: NALOXONE 0.4 MG/ML 1 ML VIAL IV PRN (19:17)
[2024-09-12] MEDS: AMPICILLIN-SULBACTAM 3 GM in SODIUM CHLORIDE 0.9% 100 ML IVPB SCH (19:31)
[2024-09-12] MEDS: SODIUM CHLORIDE 0.9% 1,000 ML IV SCH (19:33)
[2024-09-12] MEDS ORDERED: MAGNESIUM HYDROXIDE 2,400 MG/30 ML CUP PO PRN (20:34)
[2024-09-12] MEDS ORDERED: NA PHOS,M-B/NA PHOS,DI-BA 133 ML ENEMA RECTAL PRN (20:34)
[2024-09-12] MEDS ORDERED: BENZOCAINE/MENTHOL LOZENG 1 EACH LOZENGE MUCOUS MEM PRN (20:34)
[2024-09-12] MEDS ORDERED: bisacodyL 10 MG SUPP RECTAL PRN (20:34)
[2024-09-12] MEDS ORDERED: MAG HYDROX/AL HYDROX/SIMETH 30 ML CUP PO PRN (20:34)
[2024-09-12] MEDS ORDERED: MENTHOL-ZINC OXIDE OINT 113 GM TUBE TOPICAL PRN (20:34)
[2024-09-12] MEDS ORDERED: LORATADINE 10 MG TAB PO PRN (20:34)
[2024-09-12] MEDS ORDERED: ENOXAPARIN 40 MG/0.4 ML SYRINGE SQ SCH (21:00)
[2024-09-12 21:04] LABS: Glucose,Whole Blood 116 mg/dL (70-110)
--- NOTE | 2024-09-12 21:59 | P.HPIM ---
History of Present Illness H&P Date: 09/12/24 Chief Complaint: Fever 64-year-old female who follows with Dr. García of the [facility]. Extensive medical history. GERD, hyperlipidemia, hypertension, hypothyroid, history of end ometrial ovarian cancer with radiation, hemorrhagic cystitis following radiation, fragile X chromosomal disorder, patient has a legal guardian, intellectual disability, hiatal hernia, arthritis lower back, chronic constipation, vitamin D deficiency, bipolar. does use a walker to get out of bed and can walk a bit with belt assist. able to answer simple questions. She is reported to have intermittent hematuria for quite some time. In 2017 had a cystoscopy by Dr. Santana. Clots were removed. Fulguration of bleeding was carried out. Was admitted to the hospital end of July. At that time urine culture positive for Proteus mirabilis ESBL MDRO. Patient then had received IV ceftriaxone. Was seen by ID Dr. Scott. Was discharged on Ceftin. Patient now presents with fever chills. Does have a chronic Crane catheter. This was replaced in the ER. His fever spike of 103.4. Started on Unasyn in the ER. Review of systems: Somewhat limited because of patient's limited historian Social history: Lives at [facility]. Has a legal guardian. Does use a walker, with belt assist to take a few steps. Physical examination: VITAL SIGNS: RN 3.4, 106, 24, 111/59, 97% room air upon presentation GENERAL: BMI 42.9, laying in bed comfortable EYES: Pupils equal. Conjunctiva normal. HEENT: External appearance of nose and ears normal, oral cavity grossly normal. NECK: JVD unable to assess; masses not palpable. HEART: First and second heart sounds are normal; no edema. LUNGS: Respiratory rate normal; distant breath sounds. ABDOMEN: Soft, nontender, liver spleen not palpable, no masses palpable. Crane catheter. PSYCH: Able to answer simple questions. Mood affect normal.. MUSCULOSKELETAL:No Clubbing/cyanosis;muscles-grossly intact NEUROLOGICAL: [Cranial nerves grossly intact; no facial asymmetry, does move upper extremity better than lower extremity. Able to lift lower extremity off the bed. INVESTIGATIONS, reviewed in the clinical context: September 12, 2024: White count 13.2 hemoglobin 9 platelets 294 sodium 135 potassium 4.7 BUN 21 creatinine 1.40 UA: Positive for leukoesterase WBC Influenza type A, type B, RSV, SARS-CoV-2: Not detected EKG tracing personally reviewed by me-normal sinus rhythm. Low voltage. Chest x-ray film personally reviewed by me-some right basilar infiltrate Previous labs: August 19: BUN [address] cystogram: No obvious fistula sinus tract identified. Persistent mild to moderate right-sided hydronephrosis. Irregular wall thickening of the bladder Blood culture: Negative Assessment and plan: - Acute recurrent complicated UTI, secondary to chronic hemorrhagic radiation cystitis. Causing sepsis Recent urine culture growing Proteus mirabilis ESBL/MDRO. That was treated with IV ceftriaxone followed by Ceftin before patient was discharged. Started on IV Unasyn. ID consulted - Sepsis from acute UTI cystitis - Mild to moderate right hydronephrosis. Seen by urology Dr. Rizzo recently. Bailey to be from inflamed bladder. For no further intervention -Radiation hemorrhagic cystitis from previous radiation treatment with the recurrent persistent bleeding Previous fulguration -Acute kidney injury likely ATN from sepsis Recently had normal creatinine. IV fluids. Follow labs -Morbid obesity BMI 45.7 -GERD Pepcid -Hyperlipidemia Pravachol -Hypothyroid Synthroid 50 g daily -Fragile X chromosomal disorder with intellectual disability -Hiatal hernia Pepcid -Chronic arthritis Tylenol -Chronic constipation Laxatives -Vitamin D deficiency Vitamin D3 -Chronic medical debility patient does use a walker with belt assist . Fall precautions -Bipolar Cymbalta 90 mg daily -Patient has a legal guardian-Janki Discussed with patient. ID consulted. Past Medical History Past Medical History: Blood Disorder, Cancer, Chest Pain / Angina, Eye Disorder, GERD/Reflux, Hyperlipidemia, Hypertension, Thyroid Disorder Additional Past Medical History / Comment(s): atherosclerotic heart disease, HIATAL HERNIA, hypothyroidism History of Any Multi-Drug Resistant Organisms: None Reported Date of last positivie culture/infection: 08/18/24 MDRO Source:: urine Past Surgical History: Heart Catheterization, Tubal Ligation Additional Past Surgical History / Comment(s): 05/06/16 cystoscopy with bladder bx, evacuation of clots, fulguration of bleeder, ? tonsils-pt not sure, cardiac cath-negative. Past Anesthesia/Blood Transfusion Reactions: No Reported Reaction Additional Past Anesthesia/Blood Transfusion Reaction / Comment(s): Recent blood transfusions without reaction 04/2016 Smoking Status: Never smoker - Past Family History Father Family Medical History: Cancer Additional Family Medical History / Comment(s): Father of stomach cancer at the age of 72 yrs. Mother Family Medical History: Respiratory Disorder Additional Family Medical History / Comment(s): Mother of "collapsed lungs" at the age of 72 yrs. Medications and Allergies Home Medications Medication Instructions Recorded Confirmed Type Acetaminophen Tab [Tylenol] 650 mg PO Q4H PRN 05/04/16 09/12/24 History Cholecalciferol [Vitamin D3 (25 1,000 unit PO DAILY@169905/04/16 09/12/24 Histo ry Mcg = 1000 Iu)] DULoxetine HCL [Cymbalta] 60 mg PO DAILY@79905/04/16 09/12/24 History Famotidine [Pepcid] 20 mg PO DAILY@79905/04/16 09/12/24 History Levothyroxine Sodium [Synthroid] 50 mcg PO HS@209905/04/16 09/12/24 History Loperamide HCl [Imodium A-D] 2 - 4 mg PO QID PRN 05/04/16 09/12/24 History Multivitamins, Thera [Multivitamin 1 tab PO DAILY@169905/04/16 09/12/24 History (formulary)] Na Phos,M-B/Na Phos,Di-Ba [Fleet 133 ml RECTAL DAILY PRN 05/04/16 09/12/24 History Adult] bisacodyL [Dulcolax] 10 mg RECTAL DAILY PRN 05/04/16 09/12/24 History gemfibroziL [Lopid] 600 mg PO BID@0800,169905/04/16 09/12/24 History Brinzolamide/Brimonidine Tart 1 drop BOTH EYES BID@0800,0 05/03/21 09/12/24 History [Simbrinza 1%-0.2% Eye Drops] Latanoprost [Xalatan 0.005%] 1 drop BOTH EYES HS@209905/03/21 09/12/24 History Menthol [Biofreeze] 1 applic TOPICAL DAILY PRN 05/03/21 09/12/24 History Topiramate [Topamax] 100 mg PO DAILY@1700 05/03/21 09/12/24 History Vit C/E/Zn/Coppr/Lutein/Zeaxan 1 cap PO BID@0800,1700 05/03/21 09/12/24 History [Preservision Areds 2 Softgel] Acetaminophen Tab [Tylenol] 500 mg PO Q8HR@0700,1400,2200 08/12/24 09/12/24 History Azelastine HCl [Optivar 0.05% 1 drop BOTH EYES BID@0800,169908/12/24 09/12/24 History Ophth Soln] Benzocaine/Menthol Lozeng [Cepacol 1 lozenge MUCOUS MEM Q2H PRN 08/12/24 09/12/24 History lozenge] DULoxetine HCL [Cymbalta] 30 mg PO DAILY@0808/12/24 09/12/24 History Ensure Enlive 237 ml PO BID@0800,169908/12/24 09/12/24 History Gabapentin 600 mg PO HS@209908/12/24 09/12/24 History Gabapentin [Neurontin] 300 mg PO DAILY@0800 08/12/24 09/12/24 History Loratadine [Claritin] 10 mg PO DAILY PRN 08/12/24 09/12/24 History Magnesium Hydroxide [Milk of 7,200 mg PO DIRECTED PRN 08/12/24 09/12/24 History Magnesia Concentrate] Pravastatin Sodium [Pravachol] 20 mg PO HS@209908/12/24 09/12/24 History Psyllium Husk (with Sugar) 17 gm PO DAILY@169908/12/24 09/12/24 History [Metamucil Powder] metFORMIN HCL [Glucophage] 500 mg PO BID@0800,0 08/12/24 09/12/24 History Mag Hydrox/Al Hydrox/Simeth 30 ml PO Q6H PRN 09/12/24 09/12/24 History [Maalox] Allergies Allergy/AdvReac Type Severity Reaction Status Date / Time kiwi Allergy Unknown Verified 09/12/24 19:10 pineapple Allergy Unknown Verified 09/12/24 19:10 Physical Exam Vitals: Vital Signs Temp Pulse Pulse Resp BP BP Pulse Ox 09/12/24 21:00 99.6 F 99 16 122/70 98 09/12/24 20:40 99.1 F 98 16 110/64 99 09/12/24 19:34 99 F 98 16 108/66 99 09/12/24 18:30 99.8 F H 98 19 109/57 96 09/12/24 16:55 103.4 F H 106 H 24 111/59 97 Intake and Output 09/12/24 09/12/24 09/12/24 06:59 14:59 22:59 Other: Weight 102.965 kg Results CBC & Chem 7: 09/12/24 17:48 09/12/24 17:48 Labs: Abnormal Lab Results - Last 24 Hours (Table) 09/12/24 09/12/24 09/12/24 Range/Units 17:48 17:48 18:14 WBC 13.29 H (4.50-10.00) 10*3/uL RBC 3.01 L (4.10-5.20) 10*6/uL Hgb 9.0 L D (12.0-15.0) g/dL Hct 29.0 L (37.2-46.3) % MCHC 31.0 L (32.0-37.0) g/dL MPV 8.8 L (9.5-12.2) fL Immature Gran # 0.06 H (0.00-0.04) 10*3/uL Neutrophils # 11.42 H (1.80-7.70) 10*3/uL Lymphocytes # 0.89 L (0.90-5.00) 10*3/uL Eosinophils # 0.02 L (0.04-0.35) 10*3/uL Sodium 135 L (137-145) mmol/L Carbon Dioxide 19 L (22-30) mmol/L BUN 21 H (7-17) mg/dL Creatinine 1.40 H (0.52-1.04) mg/dL Glucose 119 H (74-99) mg/dL POC Glucose (mg/dL) (70-110) mg/dL Alkaline Phosphatase 149 H (38-126) U/L Urine Appearance Turbid H (Clear) Urine pH 8.5 H (5.0-8.0) Urine Protein 3+ H (Negative) Urine Blood Small H (Negative) Ur Leukocyte Esterase Large H (Negative) Urine RBC 67 H (0-5) /hpf Urine WBC >182 H (0-5) /hpf Urine Bacteria Many H (None) /hpf Urine Mucus Rare H (None) /hpf 09/12/24 Range/Units 21:03 WBC (4.50-10.00) 10*3/uL RBC (4.10-5.20) 10*6/uL Hgb (12.0-15.0) g/dL Hct (37.2-46.3) % MCHC (32.0-37.0) g/dL MPV (9.5-12.2) fL Immature Gran # (0.00-0.04) 10*3/uL Neutrophils # (1.80-7.70) 10*3/uL Lymphocytes # (0.90-5.00) 10*3/uL Eosinophils # (0.04-0.35) 10*3/uL Sodium (137-145) mmol/L Carbon Dioxide (22-30) mmol/L BUN (7-17) mg/dL Creatinine (0.52-1.04) mg/dL Glucose (74-99) mg/dL POC Glucose (mg/dL) 116 H (70-110) mg/dL Alkaline Phosphatase (38-126) U/L Urine Appearance (Clear) Urine pH (5.0-8.0) Urine Protein (Negative) Urine Blood (Negative) Ur Leukocyte Esterase (Negative) Urine RBC (0-5) /hpf Urine WBC (0-5) /hpf Urine Bacteria (None) /hpf Urine Mucus (None) /hpf
[2024-09-12] MEDS: GABAPENTIN 300 MG CAP PO SCH (22:03)
[2024-09-12] MEDS: ACETAMINOPHEN TAB 500 MG TAB PO SCH (22:03)
[2024-09-12] MEDS: ENOXAPARIN 30 MG/0.3 ML SYRINGE SQ SCH (22:04)
[2024-09-12] MEDS: PRAVASTATIN SODIUM 20 MG TAB PO SCH (22:04)
[2024-09-12] MEDS: LEVOTHYROXINE 50 MCG TAB PO SCH (22:04)
[2024-09-12] MEDS: LATANOPROST 0.005% OPHTH DROPS 2.5 ML BTL BOTH EYES SCH (23:04)
[2024-09-13] MEDS ORDERED: NON FORMULARY DRUG (Ensure Enlive 237 ML) PO SCH (08:00)
[2024-09-13] MEDS ORDERED: DULoxetine HCL 60 MG CAPSULE.DR PO SCH (08:00)
[2024-09-13 08:42] LABS: ALT 10 U/L (8-44); AST 27 U/L (13-35); Albumin 3.1 g/dL (3.8-4.9); Albumin/Globulin Ratio 1.19 Ratio (1.60-3.17); Alkaline Phosphatase 115 U/L (41-126); BUN/Creat Ratio 15.81 Ratio (12.00-20.00); Blood Urea Nitrogen 25.3 mg/dL (9.0-27.0); Calcium 8.3 mg/dL (8.7-10.3); Chloride 97 mmol/L (96-109); Globulin 2.6 g/dL (1.6-3.3); Glucose 108 mg/dL (70-110); Potassium 4.9 mmol/L (3.5-5.5); Sodium 130 mmol/L (135-145); Total Bilirubin 0.6 mg/dL (0.3-1.2); Total Protein 5.7 g/dL (6.2-8.2)
[2024-09-13 08:56] LABS: Basophils # (A) 0.05 X 10*3/uL (0.00-0.10); Basophils % (A) 0.3 %; Eosinophils # (A) 0.06 X 10*3/uL (0.04-0.35); Eosinophils % (A) 0.3 %; HCT 25.4 % (37.2-46.3); HGB 7.6 g/dL (12.0-15.0); Lymphocytes # (A) 1.61 X 10*3/uL (0.90-5.00); Lymphocytes % (A) 9.2 %; MCH 29.7 pg (27.0-32.0); MCHC 29.9 g/dL (32.0-37.0); MCV 99.2 FL (80.0-97.0); Mean Platelet Volume 9.3 FL (9.5-12.2); Monocytes # (A) 1.03 X 10*3/uL (0.20-1.00); Monocytes % (A) 5.9 %; NRBC Per 100 WBC 0.02 X 10*3/uL (0.00-0.01); Neutrophils # (A) 14.69 X 10*3/uL (1.80-7.70); Neutrophils % (A) 83.5 %; Platelet Count 305 X 10*3/uL (140-440); RBC 2.56 X 10*6/uL (4.10-5.20); WBC 17.58 X 10*3/uL (4.50-10.00)
[2024-09-13] MEDS: GABAPENTIN 300 MG CAP PO SCH (09:27)
[2024-09-13] MEDS: FENOFIBRATE 160 MG TAB PO SCH (09:27)
[2024-09-13] MEDS: metFORMIN 500 MG TAB PO SCH (09:27)
[2024-09-13] MEDS: FAMOTIDINE 20 MG TAB PO SCH (09:27)
[2024-09-13] MEDS: DORZOLAMIDE HCL 2% DROPS 10 ML BTL BOTH EYES SCH (09:30)
[2024-09-13] MEDS: BRIMONIDINE TARTRATE 0.2% DROPS 5 ML BTL BOTH EYES SCH (09:32)
[2024-09-13] MEDS: KETOTIFEN 0.025% OPHTH DROPS 5 ML BTL BOTH EYES SCH (09:32)
[2024-09-13] MEDS: DULoxetine HCL 30 MG CAPSULE.DR PO SCH (10:26)
[2024-09-13] MEDS: VIT A,C & E-LUTEIN-MINERALS 1 EACH TAB PO SCH (10:26)
--- NOTE | 2024-09-13 15:49 | P.CONS ---
History of Present Illness - Reason for Consult Consult date: 09/13/24 UTI Requesting physician: Km Garcia - Chief Complaint Fever with rigors and chills x 1 day - History of Present Illness Patient is a 64-year-old female with a past medical history significant for Blood Disorder, Cancer, Chest Pain / Angina, Diabetes Mellitus, Eye Disorder, GERD/Reflux, Hyperlipidemia, Hypertension, Thyroid Disorder history of recurrent UTI senior care resident patient has been sent to the ER concerning for fever of 104 F along with shaking chills patient also complaining of suprapubic discomfort and pressure denies having hematuria patient denies having any headache no URI symptoms denies any chest pain shortness of breath or cough some nausea but no vomiting and no diarrhea on presentation to the hospital patient did have a temperature of 103.4 F patient did have a tachycardia patient was not hypotensive or hypoxic no need for supplemental oxygen she did have white count of 13.29 which is up to 17.58 creatinine is 1.6 urine has been positive cultures are currently pending patient is currently being treated with Unasyn infectious disease was consulted for further management of antibiotic therapy, patient did have a chest x-ray that was medial right lower lobe opacity concerning for atelectasis versus infiltrate patient however currently on room air and no respiratory symptoms Review of Systems Positive point and negatives has been mentioned in the HPI, complete review of systems was performed and all other systems are negative Past Medical History Past Medical History: Blood Disorder, Cancer, Chest Pain / Angina, Diabetes Mellitus, Eye Disorder, GERD/Reflux, Hyperlipidemia, Hypertension, Thyroid Disorder Additional Past Medical History / Comment(s): atherosclerotic heart disease, HIATAL HERNIA, hypothyroidism, anemia, glaucoma, fragile x chromosome, malignant neoplasm of ovary History of Any Multi-Drug Resistant Organisms: ESBL Year Discovered:: 08/18/2024 MDRO Source:: Urine Past Surgical History: Heart Catheterization, Tubal Ligation Additional Past Surgical History / Comment(s): 05/06/16 cystoscopy with bladder bx, evacuation of clots, fulguration of bleeder, ? tonsils-pt not sure, cardiac cath-negative. Past Anesthesia/Blood Transfusion Reactions: No Reported Reaction Additional Past Anesthesia/Blood Transfusion Reaction / Comm: Recent blood transfusions without reaction 04/2016 Past Psychological History: Anxiety, Bipolar, Depression Additional Psychological History / Comment(s): pt currently resides at [facility]/cristiane to get out of bed and to her w/c. Smoking Status: Never smoker Past Alcohol Use History: None Reported Past Drug Use History: None Reported - Past Family History Father Family Medical History: Cancer Additional Family Medical History / Comment(s): Father of stomach cancer at the age of 72 yrs. Mother Family Medical History: Respiratory Disorder Additional Family Medical History / Comment(s): Mother of "collapsed lungs" at the age of 72 yrs. Medications and Allergies Home Medications Medication Instructions Recorded Confirmed Type Acetaminophen Tab [Tylenol] 650 mg PO Q4H PRN 05/04/16 09/12/24 History Cholecalciferol [Vitamin D3 (25 1,000 unit PO DAILY@169905/04/16 09/12/24 History Mcg = 1000 Iu)] DULoxetine HCL [Cymbalta] 60 mg PO DAILY@0805/04/16 09/12/24 History Famotidine [Pepcid] 20 mg PO DAILY@79905/04/16 09/12/24 History Levothyroxine Sodium [Synthroid] 50 mcg PO HS@209905/04/16 09/12/24 History Loperamide HCl [Imodium A-D] 2 - 4 mg PO QID PRN 05/04/16 09/12/24 History Multivitamins, Thera [Multivitamin 1 tab PO DAILY@169905/04/16 09/12/24 History (formulary)] Na Phos,M-B/Na Phos,Di-Ba [Fleet 133 ml RECTAL DAILY PRN 05/04/16 09/12/24 History Adult] bisacodyL [Dulcolax] 10 mg RECTAL DAILY PRN 05/04/16 09/12/24 History gemfibroziL [Lopid] 600 mg PO BID@0800,169905/04/16 09/12/24 History Brinzolamide/Brimonidine Tart 1 drop BOTH EYES BID@0800,169905/03/21 09/12/24 History [Simbrinza 1%-0.2% Eye Drops] Latanoprost [Xalatan 0.005%] 1 drop BOTH EYES HS@209905/03/21 09/12/24 History Menthol [Biofreeze] 1 applic TOPICAL DAILY PRN 05/03/21 09/12/24 History Topiramate [Topamax] 100 mg PO DAILY@1700 05/03/21 09/12/24 History Vit C/E/Zn/Coppr/Lutein/Zeaxan 1 cap PO BID@0800,1700 05/03/21 09/12/24 History [Preservision Areds 2 Softgel] Acetaminophen Tab [Tylenol] 500 mg PO Q8HR@0700,1400,2200 08/12/24 09/12/24 History Azelastine HCl [Optivar 0.05% 1 drop BOTH EYES BID@0800,1700 08/12/24 09/12/24 History Ophth Soln] Benzocaine/Menthol Lozeng [Cepacol 1 lozenge MUCOUS MEM Q2H PRN 08/12/24 09/12/24 History lozenge] DULoxetine HCL [Cymbalta] 30 mg PO DAILY@0800 08/12/24 09/12/24 History Ensure Enlive 237 ml PO BID@0800,169908/12/24 09/12/24 History Gabapentin 600 mg PO HS@209908/12/24 09/12/24 History Gabapentin [Neurontin] 300 mg PO DAILY@0800 08/12/24 09/12/24 History Loratadine [Claritin] 10 mg PO DAILY PRN 08/12/24 09/12/24 History Magnesium Hydroxide [Milk of 7,200 mg PO DIRECTED PRN 08/12/24 09/12/24 History Magnesia Concentrate] Pravastatin Sodium [Pravachol] 20 mg PO HS@209908/12/24 09/12/24 History Psyllium Husk (with Sugar) 17 gm PO DAILY@169908/12/24 09/12/24 History [Metamucil Powder] metFORMIN HCL [Glucophage] 500 mg PO BID@0800,1700 08/12/24 09/12/24 History Mag Hydrox/Al Hydrox/Simeth 30 ml PO Q6H PRN 09/12/24 09/12/24 History [Maalox] Allergies Allergy/AdvReac Type Severity Reaction Status Date / Time kiwi Allergy Unknown Verified 09/12/24 19:10 pineapple Allergy Unknown Verified 09/12/24 19:10 Physical Exam Vitals: Vital Signs Temp Pulse Pulse Resp BP BP Pulse Ox 09/13/24 07:18 98.4 F 100 17 108/68 98 09/13/24 01:19 98.5 F 94 18 113/62 97 09/12/24 21:00 99.6 F 99 16 122/70 98 09/12/24 20:40 99.1 F 98 16 110/64 99 09/12/24 19:34 99 F 98 16 108/66 99 09/12/24 18:30 99.8 F H 98 19 109/57 96 09/12/24 16:55 103.4 F H 106 H 24 111/59 97 Intake and Output 09/12/24 09/13/24 09/13/24 22:59 06:59 14:59 Intake Total 250 Output Total 250 Balance 0 Intake: Oral 250 Output: Urine 250 Other: Voiding Method Indwelling Catheter Indwelling Catheter Weight 102.965 kg GENERAL DESCRIPTION: Elderly female lying in bed, no distress. No tachypnea or accessory muscle of respiration use. HEENT: Shows Pallor , no scleral icterus. Oral mucous membrane is dry. NECK: Trachea central, no thyromegaly. LUNGS: Unlabored breathing. Decreased breath sound at the base HEART: S1, S2, regular rate and rhythm. No loud murmur ABDOMEN: Soft, no tenderness , EXTREMITIES: No edema of feet. SKIN: No rash, no masses palpable. NEUROLOGICAL: The patient is awake, alert, mood and affect normal. Results CBC & Chem 7: 09/13/24 04:30 09/13/24 04:30 Labs: Abnormal Lab Results - Last 24 Hours (Table) 09/12/24 09/12/24 09/12/24 Range/Units 17:48 17:48 18:14 WBC 13.29 H (4.50-10.00) 10*3/uL RBC 3.01 L (4.10-5.20) 10*6/uL Hgb 9.0 L D (12.0-15.0) g/dL Hct 29.0 L (37.2-46.3) % MCV (80.0-97.0) FL MCHC 31.0 L (32.0-37.0) g/dL RDW (11.5-14.5) % MPV 8.8 L (9.5-12.2) fL Immature Gran # 0.06 H (0.00-0.04) 10*3/uL Neutrophils # 11.42 H (1.80-7.70) 10*3/uL Lymphocytes # 0.89 L (0.90-5.00) 10*3/uL Monocytes # (0.20-1.00) X 10*3/uL Eosinophils # 0.02 L (0.04-0.35) 10*3/uL NRBC/100 WBC Diff (0.00-0.01) X 10*3/uL Sodium 135 L (137-145) mmol/L Carbon Dioxide 19 L (22-30) mmol/L Anion Gap (4.00-12.00) mmol/L BUN 21 H (7-17) mg/dL Creatinine 1.40 H (0.52-1.04) mg/dL Est GFR (CKD-EPI) (>=60) Glucose 119 H (74-99) mg/dL POC Glucose (mg/dL) (70-110) mg/dL Calcium (8.7-10.3) mg/dL Alkaline Phosphatase 149 H (38-126) U/L Total Protein (6.2-8.2) g/dL Albumin (3.8-4.9) g/dL Albumin/Globulin Ratio (1.60-3.17) Ratio Urine Appearance Turbid H (Clear) Urine pH 8.5 H (5.0-8.0) Urine Protein 3+ H (Negative) Urine Blood Small H (Negative) Ur Leukocyte Esterase Large H (Negative) Urine RBC 67 H (0-5) /hpf Urine WBC >182 H (0-5) /hpf Urine Bacteria Many H (None) /hpf Urine Mucus Rare H (None) /hpf 09/12/24 09/13/24 09/13/24 Range/Units 21:03 04:30 04:30 WBC 17.58 H (4.50-10.00) 10*3/uL RBC 2.56 L (4.10-5.20) 10*6/uL Hgb 7.6 L (12.0-15.0) g/dL Hct 25.4 L (37.2-46.3) % MCV 99.2 H (80.0-97.0) FL MCHC 29.9 L (32.0-37.0) g/dL RDW 18.0 H (11.5-14.5) % MPV 9.3 L (9.5-12.2) fL Immature Gran # 0.14 H (0.00-0.04) 10*3/uL Neutrophils # 14.69 H (1.80-7.70) 10*3/uL Lymphocytes # (0.90-5.00) 10*3/uL Monocytes # 1.03 H (0.20-1.00) X 10*3/uL Eosinophils # (0.04-0.35) 10*3/uL NRBC/100 WBC Diff 0.02 H (0.00-0.01) X 10*3/uL Sodium 130 L (137-145) mmol/L Carbon Dioxide 18.0 L (22-30) mmol/L Anion Gap 15.00 H (4.00-12.00) mmol/L BUN (7-17) mg/dL Creatinine 1.6 H (0.52-1.04) mg/dL Est GFR (CKD-EPI) 35 L (>=60) Glucose (74-99) mg/dL POC Glucose (mg/dL) 116 H (70-110) mg/dL Calcium 8.3 L (8.7-10.3) mg/dL Alkaline Phosphatase (38-126) U/L Total Protein 5.7 L (6.2-8.2) g/dL Albumin 3.1 L (3.8-4.9) g/dL Albumin/Globulin Ratio 1.19 L (1.60-3.17) Ratio Urine Appearance (Clear) Urine pH (5.0-8.0) Urine Protein (Negative) Urine Blood (Negative) Ur Leukocyte Esterase (Negative) Urine RBC (0-5) /hpf Urine WBC (0-5) /hpf Urine Bacteria (None) /hpf Urine Mucus (None) /hpf Assessment and Plan (1) History of ESBL E. coli infection Current Visit: Yes Status: Acute Code(s): Z86.19 - PERSONAL HISTORY OF OTHER INFECTIOUS AND PARASITIC DISEASES SNOMED Code(s): 390880729 (2) Sepsis Current Visit: Yes Status: Acute Code(s): A41.9 - SEPSIS, UNSPECIFIED ORGANISM SNOMED Code(s): 29579896 (3) UTI (urinary tract infection) Current Visit: Yes Status: Acute Code(s): N39.0 - URINARY TRACT INFECTION, SITE NOT SPECIFIED SNOMED Code(s): 21443164 Plan: 1patient presented to the hospital with sepsis in this patient did have fever tachycardia along with elevated white count meeting criteria for SIRS/sepsis source is likely urinary in this patient senior care resident and recently did have history of ESBL Proteus UTI and will need to cover for the ESBL pathogen while waiting for the workup to be completed 2will obtain ultrasound of the kidney bladder area because of recurrent UTI 3discontinue Unasyn. 4start the patient on Invanz 1 g daily while waiting for the culture to fi nalize We will follow on clinical condition and cultures to further adjust medication if needed Thank you for this consultation we will follow the patient along with you Dictation was produced using [employer] dictation software. please excuse any grammatical, word or spelling errors. Time with Patient: Greater than 30
[2024-09-13] MEDS: MULTIVITAMINS, THERA 1 EACH TAB PO SCH (16:08)
[2024-09-13] MEDS: CHOLECALCIFEROL 25 MCG (1000 IU) TABLET PO SCH (16:08)
[2024-09-13] MEDS: TOPIRAMATE 100 MG TAB PO SCH (16:08)
[2024-09-13] MEDS: PSYLLIUM HUSK 100% 6 GM PACKET PO SCH (16:08)
[2024-09-13] MEDS: ERTAPENEM 1 GM in SODIUM CHLORIDE 0.9% 50 ML IVPB SCH (16:19)
[2024-09-13 16:37] LABS: Glucose,Whole Blood 178 mg/dL (70-110)
--- NOTE | 2024-09-13 20:07 | P.PN ---
Progress Note - Text Progress Note Date: 09/13/24 Chief Complaint: Fever 64-year-old female who follows with Dr. García of the [facility]. Extensive medical history. GERD, hyperlipidemia, hypertension, hypothyroid, history of endometrial ovarian cancer with radiation, hemorrhagic cystitis following radiation, fragile X chromosomal disorder, patient has a legal guardian, intellectual disability, hiatal hernia, arthritis lower back, chronic constipation, vitamin D deficiency, bipolar. does use a walker to get out of bed and can walk a bit with belt assist. able to answer simple questions. She is reported to have intermittent hematuria for quite some time. In 2016 had a cystoscopy by Dr. Santana. Clots were removed. Fulguration of bleeding was carried out. Was admitted to the hospital end of July. At that time urine culture positive for Proteus mirabilis ESBL MDRO. Patient then had received IV ceftriaxone. Was seen by ID Dr. Scott. Was discharged on Ceftin. Patient now presents with fever chills. Does have a chronic Crane catheter. This was replaced in the ER. His fever spike of 103.4. Started on Unasyn in the ER. September 13: Admitted with acute UTI with sepsis. Antibiotic changed to IV or ertapenem by ID. Getting IV fluids. Seen by ID. Decreased appetite. Active Medications Acetaminophen (Acetaminophen Tab 325 Mg Tab) 650 mg PO Q4H PRN PRN Reason: Fever and/ or Mild Pain Acetaminophen (Acetaminophen Tab 500 Mg Tab) 500 mg PO Q8HR@0700,1400,2200 [facility] Last Admin: 09/13/24 14:27 Dose: 500 mg Al Hydroxide/Mg Hydroxide (Mag Hydrox/Al Hydrox/Simeth 30 Ml Cup) 30 ml PO Q6H PRN PRN Reason: Heartburn/Indigestion Benzocaine/Menthol (Benzocaine/Menthol Lozeng 1 Each Lozenge) 1 each MUCOUS MEM Q2H PRN PRN Reason: Sore Throat Bisacodyl (Bisacodyl 10 Mg Supp) 10 mg RECTAL DAILY PRN PRN Reason: CONSTIPATION Brimonidine Tartrate (Brimonidine Tartrate 0.2% Drops 5 Ml Btl) 1 drops BOTH EYES BID@0800,1700 [facility] Last Admin: 09/13/24 16:11 Dose: 1 drops Calamine/Phenol (Menthol-Zinc Oxide Oint 113 Gm Tube) 1 applic TOPICAL DAILY PRN PRN Reason: right shoulder pain Cholecalciferol (Cholecalciferol 25 Mcg (1000 Iu) Tablet) 25 mcg PO DAILY@1700 [facility] Last Admin: 09/13/24 16:08 Dose: 25 mcg Dorzolamide HCl (Dorzolamide Hcl 2% Drops 10 Ml Btl) 1 drops BOTH EYES BID@0800,1700 [facility] Last Admin: 09/13/24 16:09 Dose: 1 drops Duloxetine HCl (Duloxetine Hcl 30 Mg Capsule.Dr) 90 mg PO DAILY@0800 [facility] Last Admin: 09/13/24 10:26 Dose: 90 mg Enoxaparin Sodium (Enoxaparin 30 Mg/0.3 Ml Syringe) 30 mg SQ HS [facility] Last Admin: 09/12/24 22:04 Dose: 30 mg Famotidine (Famotidine 20 Mg Tab) 20 mg PO DAILY@0800 [facility] Last Admin: 09/13/24 09:27 Dose: 20 mg Fenofibrate (Fenofibrate 160 Mg Tab) 160 mg PO DAILY [facility] Last Admin: 09/13/24 09:27 Dose: 160 mg Gabapentin (Gabapentin 300 Mg Cap) 300 mg PO DAILY@0800 [facility] Last Admin: 09/13/24 09:27 Dose: 300 mg Gabapentin (Gabapentin 300 Mg Cap) 600 mg PO HS@2100 [facility] Last Admin: 09/12/24 22:03 Dose: 600 mg Lactated Ringer's (Lactated Ringers) 1,000 mls @ 125 mls/hr IV .Q8H [facility] Last Admin: 09/13/24 14:28 Dose: 125 mls/hr Ertapenem 1 gm/ Sodium (Chloride) 50 mls @ 100 mls/hr IVPB DAILY@1600 [facility]; Protocol Last Admin: 09/13/24 16:19 Dose: 100 mls/hr Ketotifen Fumarate (Ketotifen 0.025% Ophth Drops 5 Ml Btl) 1 drops BOTH EYES BID@0800,1700 [facility] Last Admin: 09/13/24 16:10 Dose: 1 drops Latanoprost (Latanoprost 0.005% Ophth Drops 2.5 Ml Btl) 1 drops BOTH EYES HS@2100 [facility] Last Admin: 09/12/24 23:04 Dose: 1 drops Levothyroxine Sodium (Levothyroxine 50 Mcg Tab) 50 mcg PO HS@2100 [facility] Last Admin: 09/12/24 22:04 Dose: 50 mcg Loratadine (Loratadine 10 Mg Tab) 10 mg PO DAILY PRN PRN Reason: dry eyes Magnesium Hydroxide (Magnesium Hydroxide 2,400 Mg/30 Ml Cup) 2,400 mg PO DIRECTED PRN PRN Reason: 2 days no BM Metformin HCl (Metformin 500 Mg Tab) 500 mg PO BID@0800,1700 [facility] Last Admin: 09/13/24 16:59 Dose: 500 mg Multivitamins (Multivitamins, Thera 1 Each Tab) 1 each PO DAILY@0 [facility] Last Admin: 09/13/24 16:08 Dose: 1 each Multivitamins/Minerals (Vit A,C & X-Jdsuxa-Fkuzkiyx 1 Each Tab) 1 each PO BID@0800,170 [facility] Last Admin: 09/13/24 16:59 Dose: 1 each Naloxone HCl (Naloxone 0.4 Mg/Ml 1 Ml Vial) 0.2 mg IV Q2M PRN PRN Reason: Opioid Reversal Pravastatin Sodium (Pravastatin Sodium 20 Mg Tab) 20 mg PO HS@2099 [facility] Last Admin: 09/12/24 22:04 Dose: 20 mg Psyllium Hydrophilic Mucilloid (Psyllium Husk 100% 6 Gm Packet) 6 gm PO DAILY@ 0 [facility] Last Admin: 09/13/24 16:08 Dose: 6 gm Sodium Biphosphate/Sodium Phosphate (Na Phos,M-B/Na Phos,Di-Ba 133 Ml Enema) 133 ml RECTAL DAILY PRN PRN Reason: Constipation Topiramate (Topiramate 100 Mg Tab) 100 mg PO DAILY@0 [facility] Last Admin: 09/13/24 16:08 Dose: 100 mg Social history: Lives at [facility]. Has a legal guardian. Does use a walker, with belt assist to take a few steps. Physical examination: VITAL SIGNS: 99.6, 92, 18, 100/61, 98% room air GENERAL: Laying in bed, tired EYES: Pupils equal. Conjunctiva normal. HEENT: External appearance of nose and ears normal, oral cavity grossly normal. NECK: JVD unable to assess; masses not palpable. HEART: First and second heart sounds are normal; no edema. LUNGS: Respiratory rate normal; distant breath sounds. ABDOMEN: Soft, nontender, liver spleen not palpable, no masses palpable. Crane catheter. PSYCH: Able to answer simple questions. Mood affect normal.. MUSCULOSKELETAL:No Clubbing/cyanosis;muscles-grossly intact NEUROLOGICAL: [Cranial nerves grossly intact; no facial asymmetry, does move upper extremity better than lower extremity. Able to lift lower extremity off the bed. INVESTIGATIONS, reviewed in the clinical context: September 13: White count 7.5 hemoglobin 7.6 potassium 4.9 BUN 25.3 creatinine 1.6 September 12, 2024: White count 13.2 hemoglobin 9 platelets 294 sodium 135 potassium 4.7 BUN 21 creatinine 1.40 UA: Positive for leukoesterase WBC Influenza type A, type B, RSV, SARS-CoV-2: Not detected EKG tracing personally reviewed by me-normal sinus rhythm. Low voltage. Chest x-ray film personally reviewed by me-some right basilar infiltrate Previous labs: August 19: BUN [address] cystogram: No obvious fistula sinus tract identified. Persistent mild to moderate right-sided hydronephrosis. Irregular wall thickening of the bladder Blood culture: Negative Assessment and plan: - Acute recurrent complicated UTI, secondary to chronic hemorrhagic radiation cystitis. Causing sepsis Recent urine culture growing Proteus mirabilis ESBL/MDRO. That was treated with IV ceftriaxone followed by Ceftin before patient was discharged. IV ertapenem. ID following - Sepsis from acute UTI cystitis - Mild to moderate right hydronephrosis. Seen by urology Dr. Rizzo on recent admission. [place] to be from inflamed bladder. For no further intervention -Radiation hemorrhagic cystitis from previous radiation treatment with the recurrent persistent bleeding Previous fulguration -Acute kidney injury likely ATN from sepsis Recently had normal creatinine. IV fluids. Follow labs -Morbid obesity BMI 45.7 -GERD Pepcid -Hyperlipidemia Pravachol -Hypothyroid Synthroid 50 g daily -Fragile X chromosomal disorder with intellectual disability -Hiatal hernia Pepcid -Chronic arthritis Tylenol -Chronic constipation Laxatives -Vitamin D deficiency Vitamin D3 -Chronic medical debility patient does use a walker with belt assist . Fall precautions -Bipolar Cymbalta 90 mg daily -Patient has a legal guardian-Janki Past Medical History Past Medical History: Blood Disorder, Cancer, Chest Pain / Angina, Eye Disorder, GERD/Reflux, Hyperlipidemia, Hypertension, Thyroid Disorder Additional Past Medical History / Comment(s): atherosclerotic heart disease, HIATAL HERNIA, hypothyroidism History of Any Multi-Drug Resistant Organisms: None Reported Date of last positivie culture/infection: 08/18/24 MDRO Source:: urine Past Surgical History: Heart Catheterization, Tubal Ligation Additional Past Surgical History / Comment(s): 05/06/16 cystoscopy with bladder bx, evacuation of clots, fulguration of bleeder, ? tonsils-pt not sure, cardiac cath-negative. Past Anesthesia/Blood Transfusion Reactions: No Reported Reaction Additional Past Anesthesia/Blood Transfusion Reaction / Comment(s): Recent blood transfusions without reaction 04/2016 Smoking Status: Never smoker
[2024-09-13 21:03] LABS: Glucose,Whole Blood 114 mg/dL (70-110)
[2024-09-13] MEDS: ACETAMINOPHEN TAB 325 MG TAB PO PRN (21:47)
[2024-09-14 06:04] LABS: Glucose,Whole Blood 117 mg/dL (70-110)
[2024-09-14 07:06] LABS: Basophils # (A) 0.03 10*3/uL (0.00-0.10); Basophils % (A) 0.3 %; Eosinophils # (A) 0.03 10*3/uL (0.04-0.35); Eosinophils % (A) 0.3 %; HCT 22.3 % (37.2-46.3); Lymphocytes # (A) 1.01 10*3/uL (0.90-5.00); Lymphocytes % (A) 9.7 %; MCHC 30.5 g/dL (32.0-37.0); MCV 98.2 fL (80.0-97.0); Mean Platelet Volume 9.3 fL (9.5-12.2); Monocytes # (A) 0.35 10*3/uL (0.20-1.00); Monocytes % (A) 3.4 %; Neutrophils # (A) 8.82 10*3/uL (1.80-7.70); Platelet Count 253 10*3/uL (140-440); RBC 2.27 10*6/uL (4.10-5.20); RDW 17.4 % (11.5-14.5); WBC 10.38 10*3/uL (4.50-10.00)
[2024-09-14 07:26] LABS: HGB 6.8 g/dL (12.0-15.0)
[2024-09-14 07:27] LABS: ALT 10 U/L (4-34); AST 27 U/L (14-36); African American GFR (CKD) 44 (>60 ml/min/1.73 sqM); Albumin 2.8 g/dL (3.5-5.0); Alkaline Phosphatase 113 U/L (38-126); Anion Gap 13 mmol/L; Blood Urea Nitrogen 28 mg/dL (7-17); Calcium 8.5 mg/dL (8.4-10.2); Carbon Dioxide 20 mmol/L (22-30); Chloride 104 mmol/L (98-107); Globulin 2.9 g/dL; Glucose 114 mg/dL (74-99); Non-African American GFR(CKD) 38 (>60 ml/min/1.73 sqM); Potassium 3.9 mmol/L (3.5-5.1); Sodium 137 mmol/L (137-145); Total Bilirubin 0.7 mg/dL (0.2-1.3); Total Protein 5.7 g/dL (6.3-8.2)
[2024-09-14 11:27] LABS: Glucose,Whole Blood 119 mg/dL (70-110)
--- NOTE | 2024-09-14 15:11 | P.PN ---
Subjective Progress Note Date: 09/14/24 Principal diagnosis: Reason for follow-up is sepsis/UTI Patient is a 64-year-old female with a past medical history significant for Blood Disorder, Cancer, Chest Pain / Angina, Diabetes Mellitus, Eye Disorder, GERD/Reflux, Hyperlipidemia, Hypertension, Thyroid Disorder history of recurrent UTI half-way resident patient has been sent to the ER concerning for fever of 104 F along with shaking chills patient also complaining of suprapubic discomfort and pressure did have a positive UA prompted this consultation. On today's evaluation that is 09/15/2023, patient did have a temperature of 98.5 F this afternoon and denies having any chills, patient is on room air and breathing comfortably no chest pain or cough, the patient did not have any nausea vomiting abdominal pain or any diarrhea. Patient white count is down to 10.38 creatinine is 1.43 blood urine cultures pending Objective - Vital Signs Vital signs: Vital Signs Temp 98.5 F 09/14/24 14:21 Pulse 90 09/14/24 14:21 Resp 18 09/14/24 14:21 BP 101/65 09/14/24 14:21 Pulse Ox 97 09/14/24 14:21 FiO2 Intake & Output 09/13/24 09/14/24 09/14/24 18:59 06:59 18:59 Intake Total 1500 237 Output Total 625 1700 1225 Balance -812 -925 -011 Intake: Intake, IV Titration 1500 Amount Lactated Ringers 1,000 ml 1500 @ 125 mls/hr IV .Q8H [facility] Rx#:[id number] Oral 237 Output: Urine 625 1700 1225 Other: Voiding Method Indwelling Catheter Indwelling Catheter Indwelling Catheter # Bowel Movements 1 - Exam GENERAL DESCRIPTION: An elderly female lying in bed in no distress RESPIRATORY SYSTEM: Unlabored breathing , decreased breath sounds at bases HEART: S1 S2 regular rate and rhythm , ABDOMEN: Soft , no tenderness EXTREMITIES: No edema feet - Labs CBC & Chem 7: 09/14/24 06:21 09/14/24 06:21 Labs: Abnormal Lab Results - Last 24 Hours (Table) 09/13/24 09/13/24 09/14/24 Range/Units 16:36 21:01 06:02 WBC (4.50-10.00) 10*3/uL RBC (4.10-5.20) 10*6/uL Hgb (12.0-15.0) g/dL Hct (37.2-46.3) % MCV (80.0-97.0) fL MCHC (32.0-37.0) g/dL RDW (11.5-14.5) % MPV (9.5-12.2) fL Immature Gran # (0.00-0.04) 10*3/uL Neutrophils # (1.80-7.70) 10*3/uL Eosinophils # (0.04-0.35) 10*3/uL Carbon Dioxide (22-30) mmol/L BUN (7-17) mg/dL Creatinine (0.52-1.04) mg/dL Glucose (74-99) mg/dL POC Glucose (mg/dL) 178 H 114 H 117 H (70-110) mg/dL Total Protein (6.3-8.2) g/dL Albumin (3.5-5.0) g/dL Crossmatch Blood Bank Comment 09/14/24 09/14/24 09/14/24 Range/Units 06:21 06:21 08:29 WBC 10.38 H (4.50-10.00) 10*3/uL RBC 2.27 L (4.10-5.20) 10*6/uL Hgb 6.8 L* D (12.0-15.0) g/dL Hct 22.3 L (37.2-46.3) % MCV 98.2 H (80.0-97.0) fL MCHC 30.5 L (32.0-37.0) g/dL RDW 17.4 H (11.5-14.5) % MPV 9.3 L (9.5-12.2) fL Immature Gran # 0.14 H (0.00-0.04) 10*3/uL Neutrophils # 8.82 H (1.80-7.70) 10*3/uL Eosinophils # 0.03 L (0.04-0.35) 10*3/uL Carbon Dioxide 20 L (22-30) mmol/L BUN 28 H (7-17) mg/dL Creatinine 1.43 H (0.52-1.04) mg/dL Glucose 114 H (74-99) mg/dL POC Glucose (mg/dL) (70-110) mg/dL Total Protein 5.7 L (6.3-8.2) g/dL Albumin 2.8 L (3.5-5.0) g/dL Crossmatch See Detail Blood Bank Comment Sent to [facility] 09/14/24 Range/Units 11:25 WBC (4.50-10.00) 10*3/uL RBC (4.10-5.20) 10*6/uL Hgb (12.0-15.0) g/dL Hct (37.2-46.3) % MCV (80.0-97.0) fL MCHC (32.0-37.0) g/dL RDW (11.5-14.5) % MPV (9.5-12.2) fL Immature Gran # (0.00-0.04) 10*3/uL Neutrophils # (1.80-7.70) 10*3/uL Eosinophils # (0.04-0.35) 10*3/uL Carbon Dioxide (22-30) mmol/L BUN (7-17) mg/dL Creatinine (0.52-1.04) mg/dL Glucose (74-99) mg/dL POC Glucose (mg/dL) 119 H (70-110) mg/dL Total Protein (6.3-8.2) g/dL Albumin (3.5-5.0) g/dL Crossmatch Blood Bank Comment Microbiology - Last 24 Hours (Table) 09/12/24 17:49 Blood Culture - Preliminary Blood 09/12/24 18:14 Urine Culture - Preliminary Urine,Voided Assessment and Plan (1) History of ESBL E. coli infection Current Visit: Yes Status: Acute Code(s): Z86.19 - PERSONAL HISTORY OF OTHER INFECTIOUS AND PARASITIC DISEASES SNOMED Code(s): 518887664 (2) Sepsis Current Visit: Yes Status: Acute Code(s): A41.9 - SEPSIS, UNSPECIFIED ORGANISM SNOMED Code(s): 98717651 (3) UTI (urinary tract infection) Current Visit: Yes Status: Acute Code(s): N39.0 - URINARY TRACT INFECTION, SITE NOT SPECIFIED SNOMED Code(s): 58067127 Plan: 1patient presented to the hospital with sepsis in this patient did have fever tachycardia along with elevated white count meeting criteria for SIRS/sepsis source is likely urinary in this patient half-way resident and recently did have history of ESBL Proteus UTI and will need to cover for the ESBL pathogen while waiting for the workup to be completed 2 ultrasound of the kidney bladder area reordered for tomorrow morning 3patient did have resolution of the fever and white count of almost normalized to continue Invanz 1 g daily while waiting for the culture to finalize Dictation was produced using [employer] dictation software. please excuse any grammatical, word or spelling errors.
[2024-09-14 16:36] LABS: Glucose,Whole Blood 130 mg/dL (70-110)
[2024-09-15 06:30] LABS: Glucose,Whole Blood 118 mg/dL (70-110)
--- NOTE | 2024-09-15 08:17 | US ---
EXAMINATION TYPE: US kidneys/renal and bladder DATE OF EXAM: 09/15/2024 COMPARISON: 05/06/2016 CLINICAL INDICATION: Female, 64 years old with history of uti and bacteremia; TECHNIQUE: Grayscale imaging of the bilateral kidneys and urinary bladder: FINDINGS: EXAM MEASUREMENTS: Right Kidney: 11.4x4.6x4.8 cm Left Kidney: 9.5x5.2x5.1 cm very limited scan due to overlying bowel & pt body habitus Right Kidney: ?slightly dilated renal pelvis Left Kidney: No hydronephrosis or masses seen Bladder: not visualized Pt appeared to have cath in, bladder not seen at this time, pt has not been able to urinate IMPRESSION: 1. No solid renal mass or renal calcification or hydronephrosis. 2. Urinary bladder not evaluated due to nondistention. [facility], Workstation: [facility] 09/15/2024 8:14 AM
[2024-09-15 10:03] LABS: Basophils # (A) 0.02 X 10*3/uL (0.00-0.10); Basophils % (A) 0.3 %; Eosinophils % (A) 1.3 %; HCT 25.2 % (37.2-46.3); HGB 7.5 g/dL (12.0-15.0); Lymphocytes # (A) 1.11 X 10*3/uL (0.90-5.00); Lymphocytes % (A) 14.6 %; MCH 29.1 pg (27.0-32.0); MCHC 29.8 g/dL (32.0-37.0); MCV 97.7 FL (80.0-97.0); Mean Platelet Volume 9.6 FL (9.5-12.2); Monocytes # (A) 0.55 X 10*3/uL (0.20-1.00); Monocytes % (A) 7.2 %; NRBC Per 100 WBC 0 X 10*3/uL (0.00-0.01); Neutrophils # (A) 5.76 X 10*3/uL (1.80-7.70); Neutrophils % (A) 75.9 %; Platelet Count 257 X 10*3/uL (140-440); RBC 2.58 X 10*6/uL (4.10-5.20); RDW 16.5 % (11.5-14.5); WBC 7.59 X 10*3/uL (4.50-10.00)
[2024-09-15 10:16] LABS: BUN/Creat Ratio 24.45 Ratio (12.00-20.00); Blood Urea Nitrogen 26.9 mg/dL (9.0-27.0); Calcium 8.3 mg/dL (8.7-10.3); Chloride 102 mmol/L (96-109); Glucose 107 mg/dL (70-110); Potassium 3.7 mmol/L (3.5-5.5); Sodium 134 mmol/L (135-145)
[2024-09-15 11:30] LABS: Glucose,Whole Blood 118 mg/dL (70-110)
--- NOTE | 2024-09-15 14:58 | P.PN ---
Subjective Progress Note Date: 09/15/24 Principal diagnosis: Reason for follow-up is sepsis/UTI Patient is a 64-year-old female with a past medical history significant for Blood Disorder, Cancer, Chest Pain / Angina, Diabetes Mellitus, Eye Disorder, GERD/Reflux, Hyperlipidemia, Hypertension, Thyroid Disorder history of recurrent UTI usp resident patient has been sent to the ER concerning for fever of 104 F along with shaking chills patient also complaining of suprapubic discomfort and pressure did have a positive UA prompted this consultation. On today's evaluation that is 09/15/2024, Patient is afebrile patient is currently on room air and denies having any shortness of breath, the patient denies any chest pain or cough, the patient denies any nausea vomiting did not have any abdominal pain and no diarrhea. Patient white count 7.52, creatinine is 1.1 urine cultures came back negative a bdominal bladder ultrasound no solid renal mass or hydronephrosis Objective - Vital Signs Vital signs: Vital Signs Temp 98.1 F 09/15/24 14:00 Pulse 77 09/15/24 14:00 Resp 17 09/15/24 14:00 BP 114/74 09/15/24 14:00 Pulse Ox 98 09/15/24 14:00 FiO2 Intake & Output 09/14/24 09/15/24 09/15/24 18:59 06:59 18:59 Intake Total 474 310 210 Output Total 1225 725 950 Balance -751 -415 -740 Intake: Oral 474 210 Blood Product 310 Rc As-1 Unit 310 [id number] Output: Urine 1225 725 950 Other: Voiding Method Indwelling Catheter Indwelling Catheter Indwelling Catheter - Exam GENERAL DESCRIPTION: An elderly female lying in bed in no distress RESPIRATORY SYSTEM: Unlabored breathing , decreased breath sounds at bases HEART: S1 S2 regular rate and rhythm , ABDOMEN: Soft , no tenderness EXTREMITIES: No edema feet - Labs CBC & Chem 7: 09/15/24 03:54 09/15/24 03:54 Labs: Abnormal Lab Results - Last 24 Hours (Table) 09/14/24 09/14/24 09/15/24 Range/Units 08:29 16:35 03:54 RBC 2.58 L (4.10-5.20) X 10*6/uL Hgb 7.5 L (12.0-15.0) g/dL Hct 25.2 L (37.2-46.3) % MCV 97.7 H (80.0-97.0) FL MCHC 29.8 L (32.0-37.0) g/dL RDW 16.5 H (11.5-14.5) % Immature Gran # 0.05 H (0.00-0.04) X 10*3/uL Sodium (135-145) mmol/L Carbon Dioxide (21.6-31.8) mmol/L Est GFR (CKD-EPI) (>=60) BUN/Creatinine Ratio (12.00-20.00) Ratio POC Glucose (mg/dL) 130 H (70-110) mg/dL Calcium (8.7-10.3) mg/dL Crossmatch See Detail Blood Bank Comment Sent to [facility] A 09/15/24 09/15/24 09/15/24 Range/Units 03:54 06:28 11:28 RBC (4.10-5.20) X 10*6/uL Hgb (12.0-15.0) g/dL Hct (37.2-46.3) % MCV (80.0-97.0) FL MCHC (32.0-37.0) g/dL RDW (11.5-14.5) % Immature Gran # (0.00-0.04) X 10*3/uL Sodium 134 L (135-145) mmol/L Carbon Dioxide 20.0 L (21.6-31.8) mmol/L Est GFR (CKD-EPI) 55 L (>=60) BUN/Creatinine Ratio 24.45 H (12.00-20.00) Ratio POC Glucose (mg/dL) 118 H 118 H (70-110) mg/dL Calcium 8.3 L (8.7-10.3) mg/dL Crossmatch Blood Bank Comment Microbiology - Last 24 Hours (Table) 09/12/24 17:49 Blood Culture - Preliminary Blood 09/12/24 18:14 Urine Culture - Final Urine,Voided Assessment and Plan (1) History of ESBL E. coli infection Current Visit: Yes Status: Acute Code(s): Z86.19 - PERSONAL HISTORY OF OTHER INFECTIOUS AND PARASITIC DISEASES SNOMED Code(s): 902790931 (2) Sepsis Current Visit: Yes Status: Acute Code(s): A41.9 - SEPSIS, UNSPECIFIED ORG ANISM SNOMED Code(s): 86068549 (3) UTI (urinary tract infection) Current Visit: Yes Status: Acute Code(s): N39.0 - URINARY TRACT INFECTION, SITE NOT SPECIFIED SNOMED Code(s): 12618487 Plan: 1patient presented to the hospital with sepsis in this patient did have fever tachycardia along with elevated white count meeting criteria for SIRS/sepsis source is likely urinary in this patient usp resident and recently did have history of ESBL Proteus UTI and will need to cover for the ESBL pathogen while waiting for the workup to be completed 2 ultrasound of the kidney bladder area did not show any hydronephrosis or renal mass 3patient did have resolution of the fever and white count of normalized, blood and urine culture reported negative 4patient to continue Invanz 1 g daily while inpatient will transition to short course of oral Ceftin on discharge Dictation was produced using [employer] dictation software. please excuse any grammatical, word or spelling errors. Time with Patient: Less than 30
[2024-09-15 17:03] LABS: Glucose,Whole Blood 140 mg/dL (70-110)
[2024-09-15] MEDS: ENOXAPARIN 40 MG/0.4 ML SYRINGE SQ SCH (21:01)
--- NOTE | 2024-09-15 22:58 | P.PN ---
Subjective Progress Note Date: 09/14/24 64-year-old female who follows with Dr. García of the [facility]. Extensive medical history. GERD, hyperlipidemia, hypertension, hypothyroid, history of endometrial ovarian cancer with radiation, hemorrhagic cystitis following radiation, fragile X chromosomal disorder, patient has a legal guardian, intellectual disability, hiatal hernia, arthritis lower back, chronic constipation, vitamin D deficiency, bipolar. does use a walker to get out of bed and can walk a bit with belt assist. able to answer simple questions. She is reported to have intermittent hematuria for quite some time. In 2016 had a cystoscopy by Dr. Santana. Clots were removed. Fulguration of bleeding was carried out. Was admitted to the hospital end of July. At that time urine culture positive for Proteus mirabilis ESBL MDRO. Patient then had received IV ceftriaxone. Was seen by ID Dr. Scott. Was discharged on Ceftin. Patient now presents with fever chills. Does have a chronic Crane catheter. This was replaced in the ER. His fever spike of 103.4. Started on Unasyn in the ER. September 13: Admitted with acute UTI with sepsis. Antibiotic changed to IV or ertapenem by ID. Getting IV fluids. Seen by ID. Decreased appetite. 09/14/2024 Patient is resting in bed. Awake alert and able to answer questions. No complaints of chest pain or shortness of breath. No complaints of abdominal pain. Patient is on IV antibiotics and home gabapentin. ID is on board. Laboratory data reviewed. Active Medications Acetaminophen (Acetaminophen Tab 325 Mg Tab) 650 mg PO Q4H PRN PRN Reason: Fever and/ or Mild Pain Acetaminophen (Acetaminophen Tab 500 Mg Tab) 500 mg PO Q8HR@0700,1400,2200 [facility] Last Admin: 09/13/24 14:27 Dose: 500 mg Al Hydroxide/Mg Hydroxide (Mag Hydrox/Al Hydrox/Simeth 30 Ml Cup) 30 ml PO Q6H PRN PRN Reason: Heartburn/Indigestion Benzocaine/Menthol (Benzocaine/Menthol Lozeng 1 Each Lozenge) 1 each MUCOUS MEM Q2H PRN PRN Reason: Sore Throat Bisacodyl (Bisacodyl 10 Mg Supp) 10 mg RECTAL DAILY PRN PRN Reason: CONSTIPATION Brimonidine Tartrate (Brimonidine Tartrate 0.2% Drops 5 Ml Btl) 1 drops BOTH EYES BID@0800,1700 [facility] Last Admin: 09/13/24 16:11 Dose: 1 drops Calamine/Phenol (Menthol-Zinc Oxide Oint 113 Gm Tube) 1 applic TOPICAL DAILY PRN PRN Reason: right shoulder pain Cholecalciferol (Cholecalciferol 25 Mcg (1000 Iu) Tablet) 25 mcg PO DAILY@1700 [facility] Last Admin: 09/13/24 16:08 Dose: 25 mcg Dorzolamide HCl (Dorzolamide Hcl 2% Drops 10 Ml Btl) 1 drops BOTH EYES BID@0800,1700 [facility] Last Admin: 09/13/24 16:09 Dose: 1 drops Duloxetine HCl (Duloxetine Hcl 30 Mg Capsule.Dr) 90 mg PO DAILY@0800 [facility] Last Admin: 09/13/24 10:26 Dose: 90 mg Enoxaparin Sodium (Enoxaparin 30 Mg/0.3 Ml Syringe) 30 mg SQ HS [facility] Last Admin: 09/12/24 22:04 Dose: 30 mg Famotidine (Famotidine 20 Mg Tab) 20 mg PO DAILY@0800 [facility] Last Admin: 09/13/24 09:27 Dose: 20 mg Fenofibrate (Fenofibrate 160 Mg Tab) 160 mg PO DAILY [facility] Last Admin: 09/13/24 09:27 Dose: 160 mg Gabapentin (Gabapentin 300 Mg Cap) 300 mg PO DAILY@0800 [facility] Last Admin: 09/13/24 09:27 Dose: 300 mg Gabapentin (Gabapentin 300 Mg Cap) 600 mg PO HS@2100 [facility] Last Admin: 09/12/24 22:03 Dose: 600 mg Lactated Ringer's (Lactated Ringers) 1,000 mls @ 125 mls/hr IV .Q8H [facility] Last Admin: 09/13/24 14:28 Dose: 125 mls/hr Ertapenem 1 gm/ Sodium (Chloride) 50 mls @ 100 mls/hr IVPB DAILY@1600 [facility]; Protocol Last Admin: 09/13/24 16:19 Dose: 100 mls/hr Ketotifen Fumarate (Ketotifen 0.025% Ophth Drops 5 Ml Btl) 1 drops BOTH EYES BID@0800,1700 [facility] Last Admin: 09/13/24 16:10 Dose: 1 drops Latanoprost (Latanoprost 0.005% Ophth Drops 2.5 Ml Btl) 1 drops BOTH EYES HS@2099 [facility] Last Admin: 09/12/24 23:04 Dose: 1 drops Levothyroxine Sodium (Levothyroxine 50 Mcg Tab) 50 mcg PO HS@2099 [facility] Last Admin: 09/12/24 22:04 Dose: 50 mcg Loratadine (Loratadine 10 Mg Tab) 10 mg PO DAILY PRN PRN Reason: dry eyes Magnesium Hydroxide (Magnesium Hydroxide 2,400 Mg/30 Ml Cup) 2,400 mg PO DIRECTED PRN PRN Reason: 2 days no BM Metformin HCl (Metformin 500 Mg Tab) 500 mg PO BID@0800,1700 [facility] Last Admin: 09/13/24 16:59 Dose: 500 mg Multivitamins (Multivitamins, Thera 1 Each Tab) 1 each PO DAILY@1699 [facility] Last Admin: 09/13/24 16:08 Dose: 1 each Multivitamins/Minerals (Vit A,C & J-Ynmfdz-Wmzstitr 1 Each Tab) 1 each PO BID@0800,1700 [facility] Last Admin: 09/13/24 16:59 Dose: 1 each Naloxone HCl (Naloxone 0.4 Mg/Ml 1 Ml Vial) 0.2 mg IV Q2M PRN PRN Reason: Opioid Reversal Pravastatin Sodium (Pravastatin Sodium 20 Mg Tab) 20 mg PO HS@2099 [facility] Last Admin: 09/12/24 22:04 Dose: 20 mg Psyllium Hydrophilic Mucilloid (Psyllium Husk 100% 6 Gm Packet) 6 gm PO FILI LY@0 [facility] Last Admin: 09/13/24 16:08 Dose: 6 gm Sodium Biphosphate/Sodium Phosphate (Na Phos,M-B/Na Phos,Di-Ba 133 Ml Enema) 133 ml RECTAL DAILY PRN PRN Reason: Constipation Topiramate (Topiramate 100 Mg Tab) 100 mg PO DAILY@0 [facility] Last Admin: 09/13/24 16:08 Dose: 100 mg Social history: Lives at [facility]. Has a legal guardian. Does use a walker, with belt assist to take a few steps. Physical examination: VITAL SIGNS: 99.6, 92, 18, 100/61, 98% room air GENERAL: Laying in bed, tired EYES: Pupils equal. Conjunctiva normal. HEENT: External appearance of nose and ears normal, oral cavity grossly normal. NECK: JVD unable to assess; masses not palpable. HEART: First and second heart sounds are normal; no edema. LUNGS: Respiratory rate normal; distant breath sounds. ABDOMEN: Soft, nontender, liver spleen not palpable, no masses palpable. Crane catheter. PSYCH: Able to answer simple questions. Mood affect normal.. MUSCULOSKELETAL:No Clubbing/cyanosis;muscles-grossly intact NEUROLOGICAL: [Cranial nerves grossly intact; no facial asymmetry, does move upper extremity better than lower extremity. Able to lift lower extremity off the bed. INVESTIGATIONS, reviewed in the clinical context: September 13: White count 7.5 hemoglobin 7.6 potassium 4.9 BUN 25.3 creatinine 1.6 September 12, 2024: White count 13.2 hemoglobin 9 platelets 294 sodium 135 potassium 4.7 BUN 21 creatinine 1.40 UA: Positive for leukoesterase WBC Influenza type A, type B, RSV, SARS-CoV-2: Not detected EKG tracing personally reviewed by me-normal sinus rhythm. Low voltage. Chest x-ray film personally reviewed by me-some right basilar infiltrate Previous labs: August 19: BUN [address] cystogram: No obvious fistula sinus tract identified. Persistent mild to moderate right-sided hydronephrosis. Irregular wall thickening of the bladder Blood culture: Negative Assessment and plan: - Acute recurrent complicated UTI, secondary to chronic hemorrhagic radiation cystitis. Causing sepsis Recent urine culture growing Proteus mirabilis ESBL/MDRO. That was treated with IV ceftriaxone followed by Ceftin before patient was discharged. IV ertapenem. ID following - Sepsis from acute UTI cystitis - Mild to moderate right hydronephrosis. Seen by urology Dr. Rizzo on recent admission. [place] to be from inflamed bladder. For no further intervention -Radiation hemorrhagic cystitis from previous radiation treatment with the recurrent persistent bleeding Previous fulguration -Acute kidney injury likely ATN from sepsis Recently had normal creatinine. IV fluids. Follow labs -Morbid obesity BMI 45.7 -GERD Pepcid -Hyperlipidemia Pravachol -Hypothyroid Synthroid 50 g daily -Fragile X chromosomal disorder with intellectual disability -Hiatal hernia Pepcid -Chronic arthritis Tylenol -Chronic constipation Laxatives -Vitamin D deficiency Vitamin D3 -Chronic medical debility patient does use a walker with belt assist . Fall precautions -Bipolar Cymbalta 90 mg daily -Patient has a legal guardian-Janki Objective - Vital Signs Vital signs: Vital Signs Temp 98.5 F 09/14/24 14:21 Pulse 90 09/14/24 14:21 Resp 18 09/14/24 14:21 BP 101/65 09/14/24 14:21 Pulse Ox 97 09/14/24 14:21 FiO2 Intake & Output 09/13/24 09/14/24 09/14/24 18:59 06:59 18:59 Intake Total 1500 237 Output Total 625 1700 1225 Balance -057 -724 -071 Intake: Intake, IV Titration 1500 Amount Lactated Ringers 1,000 ml 1500 @ 125 mls/hr IV .Q8H [facility] Rx#:[id number] Oral 237 Output: Urine 625 1700 1225 Other: Voiding Method Indwelling Catheter Indwelling Catheter Indwelling Catheter # Bowel Movements 1 - Labs CBC & Chem 7: 09/15/24 03:54 09/15/24 03:54 Labs: Abnormal Lab Results - Last 24 Hours (Table) 09/13/24 09/13/24 09/14/24 Range/Units 16:36 21:01 06:02 WBC (4.50-10.00) 10*3/uL RBC (4.10-5.20) 10*6/uL Hgb (12.0-15.0) g/dL Hct (37.2-46.3) % MCV (80.0-97.0) fL MCHC (32.0-37.0) g/dL RDW (11.5-14.5) % MPV (9.5-12.2) fL Immature Gran # (0.00-0.04) 10*3/uL Neutrophils # (1.80-7.70) 10*3/uL Eosinophils # (0.04-0.35) 10*3/uL Carbon Dioxide (22-30) mmol/L BUN (7-17) mg/dL Creatinine (0.52-1.04) mg/dL Glucose (74-99) mg/dL POC Glucose (mg/dL) 178 H 114 H 117 H (70-110) mg/dL Total Protein (6.3-8.2) g/dL Albumin (3.5-5.0) g/dL Crossmatch Blood Bank Comment 09/14/24 09/14/24 09/14/24 Range/Units 06:21 06:21 08:29 WBC 10.38 H (4.50-10.00) 10*3/uL RBC 2.27 L (4.10-5.20) 10*6/uL Hgb 6.8 L* D (12.0-15.0) g/dL Hct 22.3 L (37.2-46.3) % MCV 98.2 H (80.0-97.0) fL MCHC 30.5 L (32.0-37.0) g/dL RDW 17.4 H (11.5-14.5) % MPV 9.3 L (9.5-12.2) fL Immature Gran # 0.14 H (0.00-0.04) 10*3/uL Neutrophils # 8.82 H (1.80-7.70) 10*3/uL Eosinophils # 0.03 L (0.04-0.35) 10*3/uL Carbon Dioxide 20 L (22-30) mmol/L BUN 28 H (7-17) mg/dL Creatinine 1.43 H (0.52-1.04) mg/dL Glucose 114 H (74-99) mg/dL POC Glucose (mg/dL) (70-110) mg/dL Total Protein 5.7 L (6.3-8.2) g/dL Albumin 2.8 L (3.5-5.0) g/dL Crossmatch See Detail Blood Bank Comment Sent to [facility] A 09/14/24 Range/Units 11:25 WBC (4.50-10.00) 10*3/uL RBC (4.10-5.20) 10*6/uL Hgb (12.0-15.0) g/dL Hct (37.2-46.3) % MCV (80.0-97.0) fL MCHC (32.0-37.0) g/dL RDW (11.5-14.5) % MPV (9.5-12.2) fL Immature Gran # (0.00-0.04) 10*3/uL Neutrophils # (1.80-7.70) 10*3/uL Eosinophils # (0.04-0.35) 10*3/uL Carbon Dioxide (22-30) mmol/L BUN (7-17) mg/dL Creatinine (0.52-1.04) mg/dL Glucose (74-99) mg/dL POC Glucose (mg/dL) 119 H (70-110) mg/dL Total Protein (6.3-8.2) g/dL Albumin (3.5-5.0) g/dL Crossmatch Blood Bank Comment Microbiology - Last 24 Hours (Table) 09/12/24 17:49 Blood Culture - Preliminary Blood 09/12/24 18:14 Urine Culture - Preliminary Urine,Voided
--- NOTE | 2024-09-15 23:00 | P.PN ---
Subjective Progress Note Date: 09/15/24 64-year-old female who follows with Dr. García of the [facility]. Extensive medical history. GERD, hyperlipidemia, hypertension, hypothyroid, history of endometrial ovarian cancer with radiation, hemorrhagic cystitis following radiation, fragile X chromosomal disorder, patient has a legal guardian, intellectual disability, hiatal hernia, arthritis lower back, chronic constipation, vitamin D deficiency, bipolar. does use a walker to get out of bed and can walk a bit with belt assist. able to answer simple questions. She is reported to have intermittent hematuria for quite some time. In 2016 had a cystoscopy by Dr. Santana. Clots were removed. Fulguration of bleeding was carried out. Was admitted to the hospital end of July. At that time urine culture positive for Proteus mirabilis ESBL MDRO. Patient then had received IV ceftriaxone. Was seen by ID Dr. Scott. Was discharged on Ceftin. Patient now presents with fever chills. Does have a chronic Crane catheter. This was replaced in the ER. His fever spike of 103.4. Started on Unasyn in the ER. September 13: Admitted with acute UTI with sepsis. Antibiotic changed to IV or ertapenem by ID. Getting IV fluids. Seen by ID. Decreased appetite. 09/14/2024 Patient is resting in bed. Awake alert and able to answer questions. No complaints of chest pain or shortness of breath. No complaints of abdominal pain. Patient is on IV antibiotics and home gabapentin. ID is on board. Laboratory data reviewed. 09/16/2024 Patient is awake alert. Denied any complaints of pain. Afebrile. No nausea or vomiting. Tolerating oral diet. Laboratory data showed WBC 7.5 hemoglobin 7.5 and platelets 257 sodium 134 potassium 3.7 chloride 102 bicarb is 20 BUN 26.9 and creatinine 1.1 blood sugar 103 and calcium 8.3. Patient is on IV ertapenem for ESBL urinary tract infection Active Medications Acetaminophen (Acetaminophen Tab 325 Mg Tab) 650 mg PO Q4H PRN PRN Reason: Fever and/ or Mild Pain Acetaminophen (Acetaminophen Tab 500 Mg Tab) 500 mg PO Q8HR@0700,1400,2200 [facility] Last Admin: 09/13/24 14:27 Dose: 500 mg Al Hydroxide/Mg Hydroxide (Mag Hydrox/Al Hydrox/Simeth 30 Ml Cup) 30 ml PO Q6H PRN PRN Reason: Heartburn/Indigestion Benzocaine/Menthol (Benzocaine/Menthol Lozeng 1 Each Lozenge) 1 each MUCOUS MEM Q2H PRN PRN Reason: Sore Throat Bisacodyl (Bisacodyl 10 Mg Supp) 10 mg RECTAL DAILY PRN PRN Reason: CONSTIPATION Brimonidine Tartrate (Brimonidine Tartrate 0.2% Drops 5 Ml Btl) 1 drops BOTH EYES BID@0800,1700 [facility] Last Admin: 09/13/24 16:11 Dose: 1 drops Calamine/Phenol (Menthol-Zinc Oxide Oint 113 Gm Tube) 1 applic TOPICAL DAILY PRN PRN Reason: right shoulder pain Cholecalciferol (Cholecalciferol 25 Mcg (1000 Iu) Tablet) 25 mcg PO DAILY@1700 [facility] Last Admin: 09/13/24 16:08 Dose: 25 mcg Dorzolamide HCl (Dorzolamide Hcl 2% Drops 10 Ml Btl) 1 drops BOTH EYES BID@0800,1700 [facility] Last Admin: 09/13/24 16:09 Dose: 1 drops Duloxetine HCl (Duloxetine Hcl 30 Mg Capsule.Dr) 90 mg PO DAILY@0800 [facility] Last Admin: 09/13/24 10:26 Dose: 90 mg Enoxaparin Sodium (Enoxaparin 30 Mg/0.3 Ml Syringe) 30 mg SQ HS [facility] Last Admin: 09/12/24 22:04 Dose: 30 mg Famotidine (Famotidine 20 Mg Tab) 20 mg PO DAILY@0800 [facility] Last Admin: 09/13/24 09:27 Dose: 20 mg Fenofibrate (Fenofibrate 160 Mg Tab) 160 mg PO DAILY [facility] Last Admin: 09/13/24 09:27 Dose: 160 mg Gabapentin (Gabapentin 300 Mg Cap) 300 mg PO DAILY@0800 [facility] Last Admin: 09/13/24 09:27 Dose: 300 mg Gabapentin (Gabapentin 300 Mg Cap) 600 mg PO HS@2100 [facility] Last Admin: 09/12/24 22:03 Dose: 600 mg Lactated Ringer's (Lactated Ringers) 1,000 mls @ 125 mls/hr IV .Q8H [facility] Last Admin: 09/13/24 14:28 Dose: 125 mls/hr Ertapenem 1 gm/ Sodium (Chloride) 50 mls @ 100 mls/hr IVPB DAILY@1600 [facility]; Protocol Last Admin: 09/13/24 16:19 Dose: 100 mls/hr Ketotifen Fumarate (Ketotifen 0.025% Ophth Drops 5 Ml Btl) 1 drops BOTH EYES BID@0800,1700 [facility] Last Admin: 09/13/24 16:10 Dose: 1 drops Latanoprost (Latanoprost 0.005% Ophth Drops 2.5 Ml Btl) 1 drops BOTH EYES HS@2099 [facility] Last Admin: 09/12/24 23:04 Dose: 1 drops Levothyroxine Sodium (Levothyroxine 50 Mcg Tab) 50 mcg PO HS@2099 [facility] Last Admin: 09/12/24 22:04 Dose: 50 mcg Loratadine (Loratadine 10 Mg Tab) 10 mg PO DAILY PRN PRN Reason: dry eyes Magnesium Hydroxide (Magnesium Hydroxide 2,400 Mg/30 Ml Cup) 2,400 mg PO DIRECTED PRN PRN Reason: 2 days no BM Metformin HCl (Metformin 500 Mg Tab) 500 mg PO BID@0800,1700 [facility] Last Admin: 09/13/24 16:59 Dose: 500 mg Multivitamins (Multivitamins, Thera 1 Each Tab) 1 each PO DAILY@1699 [facility] Last Admin: 09/13/24 16:08 Dose: 1 each Multivitamins/Minerals (Vit A,C & X-Apkbxp-Ijqmaqow 1 Each Tab) 1 each PO BID@0800,1700 [facility] Last Admin: 09/13/24 16:59 Dose: 1 each Naloxone HCl (Naloxone 0.4 Mg/Ml 1 Ml Vial) 0.2 mg IV Q2M PRN PRN Reason: Opioid Reversal Pravastatin Sodium (Pravastatin Sodium 20 Mg Tab) 20 mg PO HS@2099 [facility] Last Admin: 09/12/24 22:04 Dose: 20 mg Psyllium Hydrophilic Mucilloid (Psyllium Husk 100% 6 Gm Packet) 6 gm PO DAILY@1699 [facility] Last Admin: 09/13/24 16:08 Dose: 6 gm Sodium Biphosphate/Sodium Phosphate (Na Phos,M-B/Na Phos,Di-Ba 133 Ml Enema) 133 ml RECTAL DAILY PRN PRN Reason: Constipation Topiramate (Topiramate 100 Mg Tab) 100 mg PO DAILY@1699 [facility] Last Admin: 09/13/24 16:08 Dose: 100 mg Social history: Lives at [facility]. Has a legal guardian. Does use a walker, with belt assist to take a few steps. Physical examination: VITAL SIGNS: 99.6, 92, 18, 100/61, 98% room air GENERAL: Laying in bed, tired EYES: Pupils equal. Conjunctiva normal. HEENT: External appearance of nose and ears normal, oral cavity grossly normal. NECK: JVD unable to assess; masses not palpable. HEART: First and second heart sounds are normal; no edema. LUNGS: Respiratory rate normal; distant breath sounds. ABDOMEN: Soft, nontender, liver spleen not palpable, no masses palpable. Crane catheter. PSYCH: Able to answer simple questions. Mood affect normal.. MUSCULOSKELETAL:No Clubbing/cyanosis;muscles-grossly intact NEUROLOGICAL: [Cranial nerves grossly intact; no facial asymmetry, does move upper extremity better than lower extremity. Able to lift lower extremity off the bed. INVESTIGATIONS, reviewed in the clinical context: September 13: White count 7.5 hemoglobin 7.6 potassium 4.9 BUN 25.3 creatinine 1.6 September 12, 2024: White count 13.2 hemoglobin 9 platelets 294 sodium 135 potassium 4.7 BUN 21 creatinine 1.40 UA: Positive for leukoesterase WBC Influenza type A, type B, RSV, SARS-CoV-2: Not detected EKG tracing personally reviewed by me-normal sinus rhythm. Low voltage. Chest x-ray film personally reviewed by me-some right basilar infiltrate Previous labs: August 19: BUN [address] cystogram: No obvious fistula sinus tract identified. Persistent mild to moderate right-sided hydronephrosis. Irregular wall thickening of the bladder Blood culture: Negative Assessment and plan: - Acute recurrent complicated UTI, secondary to chronic hemorrhagic radiation cystitis. Causing sepsis Recent urine culture growing Proteus mirabilis ESBL/MDRO. That was treated with IV ceftriaxone followed by Ceftin before patient was discharged. IV ertapenem. ID following - Sepsis from acute UTI cystitis - Mild to moderate right hydronephrosis. Seen by urology Dr. Rizzo on recent admission. [place] to be from inflamed bladder. For no further intervention -Radiation hemorrhagic cystitis from previous radiation treatment with the recurrent persistent bleeding Previous fulguration -Acute kidney injury likely ATN from sepsis Recently had normal creatinine. IV fluids. Follow labs -Morbid obesity BMI 45.7 -GERD Pepcid -Hyperlipidemia Pravachol -Hypothyroid Synthroid 50 g daily -Fragile X chromosomal disorder with intellectual disability -Hiatal hernia Pepcid -Chronic arthritis Tylenol -Chronic constipation Laxatives -Vitamin D deficiency Vitamin D3 -Chronic medical debility patient does use a walker with belt assist . Fall precautions -Bipolar Cymbalta 90 mg daily -Patient has a legal guardian-Janki Objective - Vital Signs Vital signs: Vital Signs Temp 98.1 F 09/15/24 14:00 Pulse 77 09/15/24 14:00 Resp 17 09/15/24 14:00 BP 114/74 09/15/24 14:00 Pulse Ox 98 09/15/24 14:00 FiO2 Intake & Output 09/14/24 09/15/24 09/15/24 18:59 06:59 18:59 Intake Total 474 310 210 Output Total 1225 725 950 Balance -194 -415 -353 Intake: Oral 474 210 Blood Product 310 Rc As-1 Unit 310 [id number] Output: Urine 1225 725 950 Other: Voiding Method Indwelling Catheter Indwelling Catheter Indwelling Catheter - Labs CBC & Chem 7: 09/15/24 03:54 09/15/24 03:54 Labs: Abnormal Lab Results - Last 24 Hours (Table) 09/14/24 09/14/24 09/15/24 Range/Units 08:29 16:35 03:54 RBC 2.58 L (4.10-5.20) X 10*6/uL Hgb 7.5 L (12.0-15.0) g/dL Hct 25.2 L (37.2-46.3) % MCV 97.7 H (80.0-97.0) FL MCHC 29.8 L (32.0-37.0) g/dL RDW 16.5 H (11.5-14.5) % Immature Gran # 0.05 H (0.00-0.04) X 10*3/uL Sodium (135-145) mmol/L Carbon Dioxide (21.6-31.8) mmol/L Est GFR (CKD-EPI) (>=60) BUN/Creatinine Ratio (12.00-20.00) Ratio POC Glucose (mg/dL) 130 H (70-110) mg/dL Calcium (8.7-10.3) mg/dL Crossmatch See Detail Blood Bank Comment Sent to [facility] A 09/15/24 09/15/24 09/15/24 Range/Units 03:54 06:28 11:28 RBC (4.10-5.20) X 10*6/uL Hgb (12.0-15.0) g/dL Hct (37.2-46.3) % MCV (80.0-97.0) FL MCHC (32.0-37.0) g/dL RDW (11.5-14.5) % Immature Gran # (0.00-0.04) X 10*3/uL Sodium 134 L (135-145) mmol/L Carbon Dioxide 20.0 L (21.6-31.8) mmol/L Est GFR (CKD-EPI) 55 L (>=60) BUN/Creatinine Ratio 24.45 H (12.00-20.00) Ratio POC Glucose (mg/dL) 118 H 118 H (70-110) mg/dL Calcium 8.3 L (8.7-10.3) mg/dL Crossmatch Blood Bank Comment Microbiology - Last 24 Hours (Table) 09/12/24 17:49 Blood Culture - Preliminary Blood 09/12/24 18:14 Urine Culture - Final Urine,Voided
[2024-09-16 06:19] LABS: Glucose,Whole Blood 136 mg/dL (70-110)
[2024-09-16 10:25] LABS: Blood Urea Nitrogen 21.2 mg/dL (9.0-27.0); Calcium 8.6 mg/dL (8.7-10.3); Carbon Dioxide 21.1 mmol/L (21.6-31.8); Chloride 104 mmol/L (96-109); Glucose 119 mg/dL (70-110); Potassium 3.6 mmol/L (3.5-5.5); Sodium 138 mmol/L (135-145)
[2024-09-16 12:15] LABS: Glucose,Whole Blood 116 mg/dL (70-110)
[2024-09-16 14:55] VITALS: BP 124/67; PULSE 74; RESP 16; TEMP 97.6
--- NOTE | 2024-09-16 16:10 | P.DS ---
Providers Date of admission: 09/12/24 19:17 Expected date of discharge: 09/16/24 Attending physician: Km Garcia Consults: 09/12/24 20:54 Consult Physician Routine Consulting Provider: Kizzy Mccain Consult Reason/Comments: UTI Do you want consulting provider notified?: Yes [facility] Course: Final diagnosis - Acute recurrent complicated UTI, secondary to chronic hemorrhagic radiation cystitis. Causing sepsis, present on admission with chronic indwelling Crane catheter Recent urine culture growing Proteus mirabilis ESBL/MDRO. That was treated with IV ceftriaxone followed by Ceftin before patient was discharged. - Sepsis from acute UTI cystitis - Mild to moderate right hydronephrosis. 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 -Bipolar history -Morbid obesity with a BMI of 42.9 -GI prophylaxis -DVT prophylaxis -Full code Discharge disposition Patient is being discharged in a stable condition with guarded prognosis to [facility] where she resides. Patient will follow-up with Dr. García in the outpatient setting upon discharge. Patient is to continue with oral Ceftin 500 mg twice daily for the next 5 days. Patient to continue with Crane catheter care. Total time taken is greater than 35 minutes. Hospital course This is a 64-year-old female who was recently admitted with fever and chills with concerns of urinary tract infection as patient does have chronic indwelling Crane catheter. Patient was started on antibiotics in the ER and admitted with UTI with sepsis. Patient has received IV Invanz per ID recommendations being followed closely by infectious disease and will continue on a short course of oral Ceftin twice daily for the next 5 days. Patient to follow-up with infectious disease outpatient. Patient resides at [facility] and will be returning. Recommend aspiration precautions with head of the bed elevated 30 to 45 degrees at all times. Strongly recommend to continue with Crane catheter care and at least monthly exchanges as patient does have history of recurrent urinary tract infections. Patient has been cleared by consultation for discharge to [facility]. Please refer to consultation notes for further HPI. White count has normalized and is 7.59, hemoglobin with chronic anemia at 7.5 with no active bleeding noted. Patient does chronically have hematuria per medical record. Patient also with acute DARRION on admission although has improved and BUN is 21.2 with a creatinine of 1.0, sodium is improved at 138 and potassium is 3.6. Patient reports to feeling much improved and would like to go home. Currently no reports of chest pain, shortness of breath, or palpitations. Patient is afebrile. No reports of nausea or vomiting and patient is tolerating diet. Patient will be going to [facility] today. High risk for readmissions given significant comorbidities Physical exam: Gen: This is a 64-year-old female who is awake, alert and oriented x 2-3, well- developed, elderly appearing, morbidly obese HEENT: Head is atraumatic, normocephalic. Pupils equal, round. Sclerae is anicteric. NECK: Supple. No JVD. No lymphadenopathy. No thyromegaly. LUNGS: Diminished breath sounds bilaterally otherwise clear to auscultation. No wheezes or rhonchi. No intercostal retractions. HEART: S1, S2 are muffled ABDOMEN: Soft. Morbidly obese bowel sounds are present. No masses. No tenderness. EXTREMITIES: No pedal edema. No calf tenderness. NEUROLOGICAL: Patient is awake, alert and oriented x 2-3. Cranial nerves 2 through 12 are grossly intact. Diffusely weak Please refer to medication reconciliation sheet for a list of medications. The impression and plan of care has been dictated by Briana Card, Nurse Practitioner as directed. Dr. Peri MD I have performed a history and examination and MDM of this patient, discussed the same with the dictator, and agree with the dictator's assessment and plan as written ,documented as a scribe. Based on total visit time, I have performed more than 50% of the visit. Patient Condition at Discharge: Fair Plan - Discharge Summary Discharge Rx Participant: No New Discharge Prescriptions: New cefuroxime axetiL [Ceftin] 500 mg PO BID 5 Days #10 tab DULoxetine HCL [Cymbalta] 90 mg PO DAILY@0800 cap Enoxaparin [Lovenox] 40 mg SQ HS each Continue Loperamide HCl [Imodium A-D] 2 - 4 mg PO QID PRN PRN Reason: Diarrhea Na Phos,M-B/Na Phos,Di-Ba [Fleet Adult] 133 ml RECTAL DAILY PRN PRN Reason: Constipation bisacodyL [Dulcolax] 10 mg RECTAL DAILY PRN PRN Reason: CONSTIPATION Acetaminophen Tab [Tylenol] 650 mg PO Q4H PRN PRN Reason: Fever And/ Or Pain gemfibroziL [Lopid] 600 mg PO BID@0800,1700 Cholecalciferol [Vitamin D3 (25 Mcg = 1000 Iu)] 1,000 unit PO DAILY@1700 Famotidine [Pepcid] 20 mg PO DAILY@0800 Multivitamins, Thera [Multivitamin (formulary)] 1 tab PO DAILY@1700 Levothyroxine Sodium [Synthroid] 50 mcg PO HS@2100 Vit C/E/Zn/Coppr/Lutein/Zeaxan [Preservision Areds 2 Softgel] 1 cap PO BID@0800,1700 Menthol [Biofreeze] 1 applic TOPICAL DAILY PRN PRN Reason: right shoulder pain Latanoprost [Xalatan 0.005%] 1 drop BOTH EYES HS@2100 Magnesium Hydroxide [Milk of Magnesia Concentrate] 7,200 mg PO DIRECTED PRN PRN Reason: 2 days no BM Acetaminophen Tab [Tylenol] 500 mg PO Q8HR@0700,1400,2200 Pravastatin Sodium [Pravachol] 20 mg PO HS@2100 Topiramate [Topamax] 100 mg PO DAILY@1700 Brinzolamide/Brimonidine Tart [Simbrinza 1%-0.2% Eye Drops] 1 drop BOTH EYES BID@0800,1700 Loratadine [Claritin] 10 mg PO DAILY PRN PRN Reason: dry eyes Benzocaine/Menthol Lozeng [Cepacol lozenge] 1 lozenge MUCOUS MEM Q2H PRN PRN Reason: Sore Throat metFORMIN HCL [Glucophage] 500 mg PO BID@0800,1700 Ensure Enlive 237 ml PO BID@0800,1700 Azelastine HCl [Optivar 0.05% Ophth Soln] 1 drop BOTH EYES BID@0800,1700 Psyllium Husk (with Sugar) [Metamucil Powder] 17 gm PO DAILY@1700 Gabapentin [Neurontin] 300 mg PO DAILY@0800 Gabapentin 600 mg PO HS@2099 Mag Hydrox/Al Hydrox/Simeth [Maalox] 30 ml PO Q6H PRN PRN Reason: Heartburn/Indigestion Discontinued DULoxetine HCL [Cymbalta] 60 mg PO DAILY@0800 DULoxetine HCL [Cymbalta] 30 mg PO DAILY@0800 Discharge Medication List Acetaminophen Tab [Tylenol] 650 mg PO Q4H PRN 05/04/16 [History] Cholecalciferol [Vitamin D3 (25 Mcg = 1000 Iu)] 1,000 unit PO DAILY@169905/04/16 [History] Famotidine [Pepcid] 20 mg PO DAILY@79905/04/16 [History] Levothyroxine Sodium [Synthroid] 50 mcg PO HS@209905/04/16 [History] Loperamide HCl [Imodium A-D] 2 - 4 mg PO QID PRN 05/04/16 [History] Multivitamins, Thera [Multivitamin (formulary)] 1 tab PO DAILY@169905/04/16 [History] Na Phos,M-B/Na Phos,Di-Ba [Fleet Adult] 133 ml RECTAL DAILY PRN 05/04/16 [History] bisacodyL [Dulcolax] 10 mg RECTAL DAILY PRN 05/04/16 [History] gemfibroziL [Lopid] 600 mg PO BID@0800,169905/04/16 [History] Brinzolamide/Brimonidine Tart [Simbrinza 1%-0.2% Eye Drops] 1 drop BOTH EYES BID@0800,169905/03/21 [History] Latanoprost [Xalatan 0.005%] 1 drop BOTH EYES HS@209905/03/21 [History] Menthol [Biofreeze] 1 applic TOPICAL DAILY PRN 05/03/21 [History] Topiramate [Topamax] 100 mg PO DAILY@169905/03/21 [History] Vit C/E/Zn/Coppr/Lutein/Zeaxan [Preservision Areds 2 Softgel] 1 cap PO BID@0800,169905/03/21 [History] Acetaminophen Tab [Tylenol] 500 mg PO Q8HR@0700,1400,2200 08/12/24 [History] Azelastine HCl [Optivar 0.05% Ophth Soln] 1 drop BOTH EYES BID@0800,1700 08/12/24 [History] Benzocaine/Menthol Lozeng [Cepacol lozenge] 1 lozenge MUCOUS MEM Q2H PRN 08/12/24 [History] Ensure Enlive 237 ml PO BID@0800,17008/12/24 [History] Gabapentin 600 mg PO HS@209908/12/24 [History] Gabapentin [Neurontin] 300 mg PO DAILY@0800 08/12/24 [History] Loratadine [Claritin] 10 mg PO DAILY PRN 08/12/24 [History] Magnesium Hydroxide [Milk of Magnesia Concentrate] 7,200 mg PO DIRECTED PRN 08/12/24 [History] Pravastatin Sodium [Pravachol] 20 mg PO HS@209908/12/24 [History] Psyllium Husk (with Sugar) [Metamucil Powder] 17 gm PO DAILY@169908/12/24 [History] metFORMIN HCL [Glucophage] 500 mg PO BID@0800,1700 08/12/24 [History] Mag Hydrox/Al Hydrox/Simeth [Maalox] 30 ml PO Q6H PRN 09/12/24 [History] DULoxetine HCL [Cymbalta] 90 mg PO DAILY@0800 cap 09/16/24 [Rx] Enoxaparin [Lovenox] 40 mg SQ HS each 09/16/24 [Rx] cefuroxime axetiL [Ceftin] 500 mg PO BID 5 Days #10 tab 09/16/24 [Rx] Follow up Appointment(s)/Referral(s): Ludwig García DO [Primary Care Provider] - 1-2 days Sage Bañuelos, [NON-STAFF] - As Needed Activity/Diet/Wound Care/Special Instructions: Activity as tolerated [facility]ftin twice daily for 5 days to complete the course per ID recommendations Continue with Crane care Recommend aspiration precautions with head of the bed elevated 30 to 45 degrees at all times Discharge Disposition: TRANSFER TO SNF/ECF
[2024-09-16 17:03] LABS: Glucose,Whole Blood 142 mg/dL (70-110)
--- NOTE | 2024-09-17 17:08 | P.PN ---
Subjective Progress Note Date: 09/16/24 Principal diagnosis: Reason for follow-up is sepsis/UTI Patient is a 64-year-old female with a past medical history significant for Blood Disorder, Cancer, Chest Pain / Angina, Diabetes Mellitus, Eye Disorder, GERD/Reflux, Hyperlipidemia, Hypertension, Thyroid Disorder history of recurrent UTI long term resident patient has been sent to the ER concerning for fever of 104 F along with shaking chills patient also complaining of suprapubic discomfort and pressure did have a positive UA prompted this consultation. On today's evaluation that is 09/16/2024, patient has been afebrile, patient is breathing comfortably and is currently on room air, patient denies having any chest pain and cough, patient denies nausea vomiting or diarrhea and no abdominal pain patient mention feeling better wants to go home. Patient did have a creatinine 1.0 no CBC was done today blood urine culture have been negative Objective - Vital Signs Vital signs: Vital Signs Temp 97.6 F 09/16/24 14:01 Pulse 74 09/16/24 14:01 Resp 16 09/16/24 14:01 BP 124/67 09/16/24 14:01 Pulse Ox 98 09/16/24 14:01 FiO2 Intake & Output 09/15/24 09/16/24 09/16/24 18:59 06:59 18:59 Intake Total 345 Output Total 950 1375 750 Balance -605 1375 -750 Intake: Oral 345 Output: Urine 950 1375 750 Other: Voiding Method Indwelling Catheter Indwelling Catheter Indwelling Catheter - Exam GENERAL DESCRIPTION: An elderly female lying in bed in no distress RESPIRATORY SYSTEM: Unlabored breathing , decreased breath sounds at bases HEART: S1 S2 regular rate and rhythm , ABDOMEN: Soft , no tenderness EXTREMITIES: No edema feet - Labs CBC & Chem 7: 09/15/24 03:54 09/16/24 02:49 Labs: Abnormal Lab Results - Last 24 Hours (Table) 09/15/24 09/16/24 09/16/24 Range/Units 17:02 02:49 06:17 Carbon Dioxide 21.1 L (21.6-31.8) mmol/L Anion Gap 12.90 H (4.00-12.00) mmol/L BUN/Creatinine Ratio 21.20 H (12.00-20.00) Ratio Glucose 119 H (70-110) mg/dL POC Glucose (mg/dL) 140 H 136 H (70-110) mg/dL Calcium 8.6 L (8.7-10.3) mg/dL 09/16/24 Range/Units 12:14 Carbon Dioxide (21.6-31.8) mmol/L Anion Gap (4.00-12.00) mmol/L BUN/Creatinine Ratio (12.00-20.00) Ratio Glucose (70-110) mg/dL POC Glucose (mg/dL) 116 H (70-110) mg/dL Calcium (8.7-10.3) mg/dL Microbiology - Last 24 Hours (Table) 09/12/24 18:14 Urine Culture - Final Urine,Voided 09/12/24 17:49 Blood Culture - Preliminary Blood Assessment and Plan (1) History of ESBL E. coli infection Status: Acute Code(s): Z86.19 - PERSONAL HISTORY OF OTHER INFECTIOUS AND PARASITIC DISEASES SNOMED Code(s): 446436697 (2) Sepsis Status: Acute Code(s): A41.9 - SEPSIS, UNSPECIFIED ORGANISM SNOMED Code(s): 33888940 (3) UTI (urinary tract infection) Status: Acute Code(s): N39.0 - URINARY TRACT INFECTION, SITE NOT SPECIFIED SNOMED Code(s): 02246739 Plan: 1patient presented to the hospital with sepsis in this patient did have fever tachycardia along with elevated white count meeting criteria for SIRS/sepsis source is likely urinary in this patient long term resident and recently did have history of ESBL Proteus UTI and will need to cover for the ESBL pathogen while waiting for the workup to be completed 2 ultrasound of the kidney bladder area did not show any hydronephrosis or renal mass 3patient did have resolution of the fever and white count of normalized, blood and urine culture reported negative 4patient advised short course of oral Ceftin on discharge Dictation was produced using [employer] retargeting dictation software. please excuse any g rammatical, word or spelling errors. Time with Patient: Less than 30
== END 2024-09-16 17:09 | DRG 871 ==
LOC: EC 16:55 → 4SSUR 19:17
PROVIDERS: ADMIT Hospitalist; ATTEND Hospitalist
DX: A41.9 Sepsis, unspecified organism (principal); N17.0 Acute kidney failure with tubular necrosis; N30.41 Irradiation cystitis with hematuria; Z68.41 Body mass index [BMI] 40.0-44.9, adult; N13.6 Pyonephrosis; E66.01 Morbid (severe) obesity due to excess calories; F31.9 Bipolar disorder, unspecified; E11.9 Type 2 diabetes mellitus without complications; E03.9 Hypothyroidism, unspecified; I10 Essential (primary) hypertension; K21.9 Gastro-esophageal reflux disease without esophagitis; E78.5 Hyperlipidemia, unspecified; K44.9 Diaphragmatic hernia without obstruction or gangrene; F79 Unspecified intellectual disabilities; E55.9 Vitamin D deficiency, unspecified; K59.09 Other constipation; R53.81 Other malaise; M19.90 Unspecified osteoarthritis, unspecified site; I25.10 Atherosclerotic heart disease of native coronary artery without angina pectoris; Q99.9 Chromosomal abnormality, unspecified; Z86.19 Personal history of other infectious and parasitic diseases; Z79.1 Long term (current) use of non-steroidal anti-inflammatories (NSAID); Z79.84 Long term (current) use of oral hypoglycemic drugs; Z79.890 Hormone replacement therapy; Z79.899 Other long term (current) drug therapy; Z87.440 Personal history of urinary (tract) infections; Z85.43 Personal history of malignant neoplasm of ovary; Z96.0 Presence of urogenital implants
CPT/HCPCS: 36415; 51702; 71045; 76770; 80048; 80053; 81001; 83605; 85025; 85610; 85730; 86850; 86870; 86880; 86900; 86901; 86902; 86920; 87040; 87086; 87636; 93005; 94760; 96361; 96365; 99285